=== PATIENT | female | born 1940 | race Caucasian/White ===

== ENCOUNTER 2016-12-24 19:57 | Observation (INO) ==
--- NOTE | 2016-12-24 20:04 | Emergency Department Note ---
Disposition Clinical Impression: Lower gastrointestinal hemorrhage, COPD exacerbation Disposition: Home, Self-Care Condition: Fair Referrals: NO,PCP [Primary Care Provider] - Forms: ED Satisfaction Letter General Adult HPI - General Chief complaint: ED GI Bleed Stated complaint: GI Bleed Time Seen by Provider: 12/24/16 19:59 Source: EMS Limitations: no limitations Nursing Notes Reviewed: Yes Vital Signs Reviewed: Yes - History of Present Illness Pain Scale: 0 - Related Data Home Medications Medication Instructions Recorded Confirmed Gabapentin [Neurontin] 400 mg PO DAILY 04/13/15 01/16/16 Previous Rx's Medication Instructions Recorded Amlodipine [Norvasc] 5 mg PO DAILY 30 Days 04/20/15 Aspirin 81 mg PO DAILY 30 Days 04/20/15 Budesonide/Formoterol 160/4.5 2 puff IH BIDR #1 inhaler 04/20/15 [Symbicort] Carvedilol [Coreg] 3.125 mg PO BIDWM 30 Days 04/20/15 Docusate [Colace] 100 mg PO BID 10 Days 04/20/15 Furosemide [Lasix] 20 mg PO DAILY 14 Days 04/20/15 Insulin Aspart Prot/Insuln Asp 5 unit SQ DAILY 28 Days 04/20/15 [Novolog Mix 70-30 Flexpen Syrn] Insulin Glargine,Hum.rec.anlog 40 unit SQ BID 30 Days 04/20/15 [Lantus Solostar] Ipratropium/Albuterol Neb [Duoneb] 3 ml IH [id number] 14 Days 04/20/15 Levothyroxine [Synthroid] 100 mcg PO 0630 30 Days 04/20/15 MethylPREDNISolone [Medrol] 4 mg PO BIDWM 5 Days 04/20/15 Simvastatin [Zocor] 20 mg PO HS 30 Days 04/20/15 Sitagliptin Phos/Metformin HCl 1 each PO DAILY 30 Days 04/20/15 [Janumet 50-1,000 mg Tablet] Cephalexin [Keflex] 500 mg PO QID #40 capsule 03/16/16 Albuterol Neb [Proventil Neb] 2.5 mg IH Q20MIN #10 vial.neb 07/17/16 Doxycycline 100 mg PO BID #20 capsule 07/17/16 Allergies Allergy/AdvReac Type Severity Reaction Status Date / Time sulfamethoxazole Allergy Rash Verified 07/17/16 17:20 [From Bactrim] trimethoprim [From Bactrim] Allergy Rash Verified 07/17/16 17:20 Sulfa (Sulfonamide AdvReac Rash Verified 07/17/16 17:20 Antibiotics) Past Medical History - Past Medical History Medical history: Reports: arthritis, asthma, cancer, CHF, COPD, diabetes, hypertension, osteoporosis Surgical history: Reports: cancer surgery Psychiatric history: Reports: no psych history - Social History Smoking Status: Former smoker Smokeless Tobacco Status: No Alcohol use: Reports: none Drug use: Reports: none Physical Exam - General Limitations: no limitations General appearance: alert Course Vital Signs Temperature 98.3 F 12/24/16 19:59 Pulse Rate 79 12/24/16 19:59 Respiratory Rate 20 12/24/16 19:59 Blood Pressure 172/80 12/24/16 19:59 O2 Sat by Pulse Oximetry 98 12/24/16 19:59 Temperature 98.3 F 12/24/16 19:59 Pulse Rate 79 12/24/16 19:59 Respiratory Rate 20 12/24/16 19:59 Blood Pressure 172/80 12/24/16 19:59 O2 Sat by Pulse Oximetry 98 12/24/16 19:59 Oxygen Delivery Oxygen Delivery Nasal Cannula Medical Decision Making - MDM Narrative Medical decision making narrative: I examined this patient and my medical decision-making was reviewed with the BRAND MARKETING INTERN/PA/Advanced Practice Nurse/Resident Physician. I agree with the documented findings, disposition and treatment plan as described except to the extent set forth below. Patient arrives by EMS and was seen on arrival by Dr. Corbett and myself, I agree with his evaluation and management plan, supervising care the patient had stay. She comes in today with some lower abdominal cramping and some bright red blood on stool. She has been on laxatives she has been constipated. She looks well is nontoxic in appearance, which can check labs and reassess. She is in agreement with plan. 2130 hrs.: After a grossly bloody bowel movement here, she remained stable. We will bring her into the hospital. - Lab Data Result diagrams: 12/24/16 20:13 12/24/16 20:13 Lab Results 12/24/16 12/24/16 12/24/16 Range/Units 20:13 20:13 20:13 WBC 11.3 H (4.3-11.1) K/mcL RBC 4.34 (3.82-4.97) M/mcL Hgb 10.3 L (11.5-15.4) g/dL Hct 34.6 L (35.3-44.9) % MCV 79.7 L (83.0-100.0) fL MCH 23.7 L (28.0-33.3) pg MCHC 29.8 L (31.6-35.5) g/dL RDW 18.4 H (11.5-14.5) % Plt Count 276 (140-400) K/mcL MPV 8.5 L (9.4-12.4) fL Immature Gran % 0.6 (0-4) % Seg Neutrophils % 81.0 % Lymphocytes % 10.8 % Monocytes % 5.4 % Eosinophils % 1.9 % Basophils % 0.3 % Neutrophils # 9.2 H (1.6-8.9) K/mcL Lymphocytes # 1.2 (0.6-4.6) K/mcL Monocytes # 0.6 (0.0-1.3) K/mcL Eosinophils # 0.2 (0.0-0.6) K/mcL Basophils # 0.0 (0.0-0.2) K/mcL Immature Plt Fraction 2.3 (1.1-6.1) % Sodium 132 L (136-145) mEq/L Potassium 4.5 (3.5-4.5) mEq/L Chloride 83 L (98-109) mEq/L Carbon Dioxide 39 H (19-29) mEq/L BUN 20 (7-20) mg/dL Creatinine 0.99 (0.57-1.11) mg/dL Est GFR ( Amer) > 60 (> 60) Est GFR (Non-Af Amer) 54 L (> 60) BUN/Creatinine Ratio 20 (6-26) Glucose 289 H (70-99) mg/dL Calculated Osmolality 287 (280-300) Calcium 8.8 (8.6-10.8) mg/dL Total Bilirubin 0.3 (0.2-1.2) mg/dL AST 8 (5-34) Units/L ALT 6 (0-55) Units/L Alkaline Phosphatase 96 (38-126) Units/L Troponin I 0.00 (0-0.03) ng/mL Serum Total Protein 6.9 (6.0-8.3) g/dL Albumin 3.0 L (3.5-5.0) g/dL Globulin 3.9 H (2.4-3.5) g/dL Albumin/Globulin Ratio 0.8 L (1.1-2.2)
[2016-12-24] MEDS: 0.9 % Sodium Chloride 1,000 ML IVC SCH (20:06)
--- NOTE | 2016-12-24 20:09 | Emergency Department Note ---
Disposition Clinical Impression: Lower gastrointestinal hemorrhage, COPD exacerbation Disposition: Admitted As Inpatient Condition: Fair Referrals: NO,PCP [Primary Care Provider] - Forms: ED Satisfaction Letter Time of Disposition: 22:43 GI Bleed HPI - General Chief complaint: ED GI Bleed Stated complaint: GI Bleed Time Seen by Provider: 12/24/16 19:59 Source: patient, family, EMS Mode of arrival: EMS Limitations: no limitations Nursing Notes Reviewed: Yes Vital Signs Reviewed: Yes - History of Present Illness HPI Narrative: Patient is a 76-year-old female with past medical history of COPD, CHF, diabetes , hypertension, arthritis. She chronically wears 2-3 L nasal cannula oxygen at home during the day. She presents today via EMS due to possible GI bleed. Patient has had recent constipation and has been taking [id number] Ex- Lax. Patient said that this morning, she is having some abdominal cramping and had 2-3 bowel movements with blood mixed in with soft stool. She also had some blood on toilet paper when she was wiping. Currently, she denies any abdominal pain, lightheadedness, dizziness, chest pain, fevers, diarrhea. She does admit to some shortness breath that is worsened from her baseline with COPD. However , she rates it as mild. - Related Data Home Medications Medication Instructions Recorded Confirmed Gabapentin [Neurontin] 400 mg PO DAILY 04/13/15 12/24/16 Albuterol Neb [Proventil Neb] 2.5 mg IH TID 12/24/16 12/24/16 Albuterol Sulfate [Proair Hfa] 2 puff IH Q4H PRN 12/24/16 12/24/16 Alendronate Sodium [Fosamax] 70 mg PO TU 12/24/16 12/24/16 Atorvastatin Calcium [Lipitor] 20 mg PO DAILY 12/24/16 12/24/16 Benzonatate 100 mg PO TID PRN 12/24/16 12/24/16 Cholecalciferol (Vitamin D3) 400 unit PO DAILY 12/24/16 12/24/16 [Vitamin D] Diclofenac Sodium [Voltaren] 1 appl TP QID PRN 12/24/16 12/24/16 GlipiZIDE XL (24 HR) [Glucotrol XL] 10 mg PO 0800 12/24/16 12/24/16 Insulin Aspart Prot/Insuln Asp 6 unit SQ DAILY 12/24/16 12/24/16 [Novolog Mix 70-30 Flexpen Syrn] Losartan [Cozaar] 25 mg PO DAILY 12/24/16 12/24/16 Montelukast [Singulair] 10 mg PO DAILY 12/24/16 12/24/16 Nystatin/Triamcinolone CRM 1 appl TP BID 12/24/16 12/24/16 [Mycolog] Oxygen 2 - 3 l NS CONT 12/24/16 12/24/16 Ranitidine HCl [Heartburn Relief] 150 mg PO BID 12/24/16 12/24/16 Tizanidine HCl 4 mg PO TID PRN 12/24/16 12/24/16 Tramadol HCl [Ultram] 50 mg PO BID PRN 12/24/16 12/24/16 Previous Rx's Medication Instructions Recorded Amlodipine [Norvasc] 5 mg PO DAILY 30 Days 04/20/15 Aspirin 81 mg PO DAILY 30 Days 04/20/15 Budesonide/Formoterol 160/4.5 2 puff IH BIDR #1 inhaler 04/20/15 [Symbicort] Carvedilol [Coreg] 3.125 mg PO BIDWM 30 Days 04/20/15 Docusate [Colace] 100 mg PO BID 10 Days 04/20/15 Furosemide [Lasix] 20 mg PO DAILY 14 Days 04/20/15 Insulin Glargine,Hum.rec.anlog 40 unit SQ BID 30 Days 04/20/15 [Lantus Solostar] Ipratropium/Albuterol Neb [Duoneb] 3 ml IH [id number] 14 Days 04/20/15 Levothyroxine [Synthroid] 100 mcg PO 0630 30 Days 04/20/15 Sitagliptin Phos/Metformin HCl 1 each PO DAILY 30 Days 04/20/15 [Janumet 50-1,000 mg Tablet] Allergies Allergy/AdvReac Type Severity Reaction Status Date / Time sulfamethoxazole Allergy Rash Verified 07/17/16 17:20 [From Bactrim] trimethoprim [From Bactrim] Allergy Rash Verified 07/17/16 17:20 Sulfa (Sulfonamide AdvReac Rash Verified 07/17/16 17:20 Antibiotics) All systems ED: reviewed and negative except as stated. Constitutional: Denies: fever Cardiovascular: Denies: chest pain, palpitations Respiratory: Reports: dyspnea. Denies: cough, wheezes Gastrointestinal: Reports: hematochezia. Denies: abdominal pain, nausea, vomiting, diarrhea Genitourinary: Denies: urgency, dysuria Neurological: Denies: headache, weakness, numbness, paresthesias Past Medical History - Past Medical History Attestation: Yes The following information was validated with the patient. Source: patient Medical history: Reports: arthritis, asthma, cancer, CHF, COPD, diabetes, hypertension, osteoporosis Surgical history: Reports: cancer surgery Psychiatric history: Reports: no psych history - Social History Smoking Status: Former smoker Smokeless Tobacco Status: No Alcohol use: Reports: none Drug use: Reports: none Physical Exam - General Limitations: no limitations General appearance: alert, other (Morbidly obese) - Head Head exam: atraumatic, normocephalic, normal inspection - Eye Eye exam: Present: normal appearance, PERRL, EOMI - ENT ENT exam: normal exam, normal oropharynx, mucous membranes moist - Neck Neck exam: Present: normal inspection, full ROM, trachea midline - Chest Chest inspection: Present: normal inspection, symmetric chest wall rise - Respiratory Respiratory exam: Present: wheezes (Mild wheeze throughout) - Cardiovascular Cardiovascular exam: Present: regular rate, normal rhythm, normal heart sounds - Abdominal Exam Abdominal exam: Present: soft, Non-Tender, other (Obese). Absent: tenderness, distention, guarding, rebound, rigidity - Extremities Exam Extremities exam: Present: normal inspection, full ROM. Absent: tenderness, pedal edema - Neurological Exam Neurological exam: Present: alert, oriented X3 - Psychiatric Psychiatric exam: Present: normal affect, normal mood - Skin Skin exam: Present: warm, dry, intact, normal color Course Course Narrative: Blood pressure 170/80. Pulse within normal limits. Patient is in no acute distress. Abdominal exam shows no tenderness to palpation, soft, no rigidity or guarding. Heart regular rate and rhythm, lungs show mild wheezes throughout. We will obtain basic blood work to assess hemoglobin. We will also obtain troponin due to complaints of mild increase in shortness of breath. We will perform a rectal exam for occult blood. This is likely due to hemorrhoids from recent constipation. The patient herself said that she was not worried about the amount of blood that was in her stool but that her family members made her come in. 21:45 Hgb 10.3, down from 11.7 from June 2016. Trop negative. No major concerns with BMP. Patient had a grossly bloody liquid stool approximately 300ml while waiting. Due to continued bowel movements, I discussed admission with the patient for observation and possible colonoscopy during her stay. She was agreeable with staying. Type and screen was ordered in case patient has continued blood loss. Blood pressure stable this time. Patient continues to only have mild shortness of breath near baseline, no other symptoms at this time. Vital Signs Temperature 98.3 F 12/24/16 19:59 Pulse Rate 79 12/24/16 19:59 Respiratory Rate 20 12/24/16 19:59 Blood Pressure 172/80 12/24/16 19:59 O2 Sat by Pulse Oximetry 98 12/24/16 19:59 Temperature 98.3 F 12/24/16 19:59 Pulse Rate 72 12/24/16 22:32 Respiratory Rate 20 12/24/16 22:32 Blood Pressure 148/61 12/24/16 22:32 O2 Sat by Pulse Oximetry 96 12/24/16 22:32 Oxygen Delivery Oxygen Delivery Nasal Cannula GI Bleed - [facility] Narrative Medical decision making narrative: I examined this patient and my medical decision-making was reviewed with the SCHOOL TRANSPORTATION DIRECTOR/PA/Advanced Practice Nurse/Resident Physician. I agree with the documented findings, disposition and treatment plan as described except to the extent set forth below. Patient was seen and evaluated on arrival by myself and Dr. parker, I agree with his evaluation and management plan, supervise care the patient's stay. Patient had some crampy lower abdominal pain on initial arrival. She notes some blood in her stool also. We checked labs which show she is A little bit of anemia but only had a decline in her hemoglobin less than 1.. Here she has had a grossly bloody bowel movement. 1. She has remained stable. Bring her into the hospital for GI bleed management. She is in agreement with this plan. Blood pressure 170/80. Pulse within normal limits. Patient is in no acute distress. Abdominal exam shows no tenderness to palpation, soft, no rigidity or guarding. Heart regular rate and rhythm, lungs show mild wheezes throughout. We will obtain basic blood work to assess hemoglobin. We will also obtain troponin due to complaints of mild increase in shortness of breath. We will perform a rectal exam for occult blood. This is likely due to hemorrhoids from recent constipation. The patient herself said that she was not worried about the amount of blood that was in her stool but that her family members made her come in. 21:45 Hgb 10.3, down from 11.7 from June 2016. Trop negative. No major concerns with BMP. Patient had a grossly bloody liquid stool approximately 300ml while waiting. Due to continued bowel movements, I discussed admission with the patient for observation and possible colonoscopy during her stay. She was agreeable with staying. Type and screen was ordered in case patient has continued blood loss. Blood pressure stable this time. Patient continues to only have mild shortness of breath near baseline, no other symptoms at this time. - Medical Records Medical records reviewed: Yes I reviewed the patient's medical records. - Lab Data Lab results reviewed: Yes I reviewed the patient's lab results. Result diagrams: 12/24/16 20:13 12/24/16 20:13 Lab Results 12/24/16 12/24/16 12/24/16 Range/Units 20:13 20:13 20:13 WBC 11.3 H (4.3-11.1) K/mcL RBC 4.34 (3.82-4.97) M/mcL Hgb 10.3 L (11.5-15.4) g/dL Hct 34.6 L (35.3-44.9) % MCV 79.7 L (83.0-100.0) fL MCH 23.7 L (28.0-33.3) pg MCHC 29.8 L (31.6-35.5) g/dL RDW 18.4 H (11.5-14.5) % Plt Count 276 (140-400) K/mcL MPV 8.5 L (9.4-12.4) fL Immature Gran % 0.6 (0-4) % Seg Neutrophils % 81.0 % Lymphocytes % 10.8 % Monocytes % 5.4 % Eosinophils % 1.9 % Basophils % 0.3 % Neutrophils # 9.2 H (1.6-8.9) K/mcL Lymphocytes # 1.2 (0.6-4.6) K/mcL Monocytes # 0.6 (0.0-1.3) K/mcL Eosinophils # 0.2 (0.0-0.6) K/mcL Basophils # 0.0 (0.0-0.2) K/mcL Immature Plt Fraction 2.3 (1.1-6.1) % Sodium 132 L (136-145) mEq/L Potassium 4.5 (3.5-4.5) mEq/L Chloride 83 L (98-109) mEq/L Carbon Dioxide 39 H (19-29) mEq/L BUN 20 (7-20) mg/dL Creatinine 0.99 (0.57-1.11) mg/dL Est GFR ( Amer) > 60 (> 60) Est GFR (Non-Af Amer) 54 L (> 60) BUN/Creatinine Ratio 20 (6-26) Glucose 289 H (70-99) mg/dL Calculated Osmolality 287 (280-300) Calcium 8.8 (8.6-10.8) mg/dL Total Bilirubin 0.3 (0.2-1.2) mg/dL AST 8 (5-34) Units/L ALT 6 (0-55) Units/L Alkaline Phosphatase 96 (38-126) Units/L Troponin I 0.00 (0-0.03) ng/mL Serum Total Protein 6.9 (6.0-8.3) g/dL Albumin 3.0 L (3.5-5.0) g/dL Globulin 3.9 H (2.4-3.5) g/dL Albumin/Globulin Ratio 0.8 L (1.1-2.2) Blood Type Antibody Screen 12/24/16 Range/Units 20:13 WBC (4.3-11.1) K/mcL RBC (3.82-4.97) M/mcL Hgb (11.5-15.4) g/dL Hct (35.3-44.9) % MCV (83.0-100.0) fL MCH (28.0-33.3) pg MCHC (31.6-35.5) g/dL RDW (11.5-14.5) % Plt Count (140-400) K/mcL MPV (9.4-12.4) fL Immature Gran % (0-4) % Seg Neutrophils % % Lymphocytes % % Monocytes % % Eosinophils % % Basophils % % Neutrophils # (1.6-8.9) K/mcL Lymphocytes # (0.6-4.6) K/mcL Monocytes # (0.0-1.3) K/mcL Eosinophils # (0.0-0.6) K/mcL Basophils # (0.0-0.2) K/mcL Immature Plt Fraction (1.1-6.1) % Sodium (136-145) mEq/L Potassium (3.5-4.5) mEq/L Chloride (98-109) mEq/L Carbon Dioxide (19-29) mEq/L BUN (7-20) mg/dL Creatinine (0.57-1.11) mg/dL Est GFR ( Amer) (> 60) Est GFR (Non-Af Amer) (> 60) BUN/Creatinine Ratio (6-26) Glucose (70-99) mg/dL Calculated Osmolality (280-300) Calcium (8.6-10.8) mg/dL Total Bilirubin (0.2-1.2) mg/dL AST (5-34) Units/L ALT (0-55) Units/L Alkaline Phosphatase (38-126) Units/L Troponin I (0-0.03) ng/mL Serum Total Protein (6.0-8.3) g/dL Albumin (3.5-5.0) g/dL Globulin (2.4-3.5) g/dL Albumin/Globulin Ratio (1.1-2.2) Blood Type O POSITIVE Antibody Screen NEGATIVE - EKG Data EKG attestation: Yes I reviewed and interpreted this EKG. EKG results narrative: 12/24/2016 at 20:24. Normal sinus rhythm. Rate 74. UT 198. QRS 105. QTc 423. Left axis deviation. Q waves in V1, V2 that are present on old EKG. Otherwise no acute ST elevation or depression. All EKG on 07/17/2016 S.Bahman - EbAJosefina Situation: Demographics, MOA Background: Presenting Complaint, Relevant PMH, Meds, & Allergies Assessment: Vital Signs, Course and respsone to treatment, Exam Concerns, Patient/Family Expectation, Pertinant Lab Results, Outstanding Labs Recommendation: Barrier(s) to disposition, Recommendation based on pending studies, treatments, or consults S.B.Quintin Report Given to: Dr. Leon Marie.R. Repor Time: 22:43
[2016-12-24 20:21] LABS: Basophils % 0.3 %; Eosinophils # 0.2 K/mcL (0.0-0.6); Eosinophils % 1.9 %; Hematocrit 34.6 % (35.3-44.9); Hemoglobin 10.3 g/dL (11.5-15.4); Immature Granulocytes % 0.6 % (0-4); Immature Platelets 2.3 % (1.1-6.1); Lymphocytes # 1.2 K/mcL (0.6-4.6); Lymphocytes % 10.8 %; Mean Corpuscular HGB Conc 29.8 g/dL (31.6-35.5); Mean Corpuscular Hemoglobin 23.7 pg (28.0-33.3); Mean Corpuscular Volume 79.7 fL (83.0-100.0); Mean Platelet Volume 8.5 fL (9.4-12.4); Monocytes # 0.6 K/mcL (0.0-1.3); Monocytes % 5.4 %; Neutrophils # 9.2 K/mcL (1.6-8.9); Platelet Count 276 K/mcL (140-400); Red Blood Count 4.34 M/mcL (3.82-4.97); Red Cell Distribution Width 18.4 % (11.5-14.5)
[2016-12-24 20:34] LABS: Alanine Aminotransferase 6 Units/L (0-55); Albumin/Globulin Ratio 0.8 (1.1-2.2); Alkaline Phosphatase 96 Units/L (38-126); Aspartate Amino Transferase 8 Units/L (5-34); BUN/Creatinine Ratio 20 (6-26); Bilirubin,Total 0.3 mg/dL (0.2-1.2); Blood Urea Nitrogen 20 mg/dL (7-20); Calcium 8.8 mg/dL (8.6-10.8); Carbon Dioxide 39 mEq/L (19-29); Chloride 83 mEq/L (98-109); Globulin 3.9 g/dL (2.4-3.5); Glucose 289 mg/dL (70-99); Osmolality,Calculated 287 (280-300); Potassium 4.5 mEq/L (3.5-4.5); Sodium 132 mEq/L (136-145); Total Protein 6.9 g/dL (6.0-8.3); eGFR For African Americans > 60 (> 60); eGFR For Non-African Americans 54 (> 60)
[2016-12-24] MEDS ORDERED: Ondansetron 4 MG/2 ML VIAL IVP PRN (23:28)
[2016-12-24] MEDS ORDERED: Acetaminophen 325 MG TABLET PO PRN (23:28)
[2016-12-24] MEDS ORDERED: Naloxone 0.4 MG/ML INJ IVP PRN (23:28)
[2016-12-24] MEDS ORDERED: traMADol 50 MG TABLET PO PRN (23:32)
[2016-12-24] MEDS ORDERED: *HR* Dextrose 50 % in Water (Syg) 50 ML SYRINGE IVP PRN (23:36)
[2016-12-24] MEDS ORDERED: Dextrose Gel 15 GM PO PRN ×2 (23:36)
[2016-12-24] MEDS ORDERED: D5% in Water 1,000 ML IVC PRN (23:36)
[2016-12-24] MEDS ORDERED: Ipratropium/Albuterol Neb 3 ML IH PRN (23:37)
--- NOTE | 2016-12-24 23:39 | Internal Med History&Physical ---
Date of Encounter: 12/24/16 Time of Encounter: 23:00 Assessment and Plan (1) Lower gastrointestinal hemorrhage Current visit: Yes Status: Acute Patient has small amount of rectal bleeding. However, she has history of colon cancer. Admitted as lower GI bleeding. - We will keep patient nothing by mouth, IV fluid. - IV PPI. - Closely monitor vitals and hemoglobin change. - GI consult for possible colonoscopy. (2) Morbid obesity Current visit: No Status: Acute Need lifestyle modification Qualifiers: Obesity type: due to excess calories Qualified Code(s): E66.01 - Morbid ( severe) obesity due to excess calories (3) Diabetes mellitus Current visit: No Status: Chronic Patient is on basal and sliding scale insulin. Check glucose every 6 hours. 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 Complaining of increased chest congestion. Consider mild COPD exacerbation. - We will continue home inhaled steroid, Singulair. - Bronchodilator - Prednisone 40 mg by mouth daily added. - Continue oxygen therapy. (5) Hypothyroid Current visit: No Status: Chronic Continue home Synthroid. Qualifiers: Hypothyroidism type: unspecified Qualified Code(s): E03.9 - Hypothyroidism , unspecified (6) Hypertension Current visit: No Status: Chronic Blood pressure is stable. continue home medication. Qualifiers: Hypertension type: essential hypertension Qualified Code(s): I10 - Essential (primary) hypertension (7) DVT prophylaxis Current visit: Yes Status: Acute Put patient on EPCD. No anticoagulations because of bleeding. Internal Medicine - H&P: HPI Chief complaint: Rectal bleeding Admitted From: Home Plans for Post Hospital Care: Home History of present illness: Ms. Ponce is a 76 year old female admitted for rectal bleeding. Patient said she found blood in toilet paper and blood mixed with stool since this morning. Patient denies diarrhea, she has some constipation recently and used over-the- counter stool softeners. She has no nausea no vomiting. She denies lightheaded , dizziness. No chest pain or shortness of breath. Patient had a history of colon cancer S/P surgery in 2007. She had last colonoscopy on 2012. Patient was admitted for further management. Patient has a history of COPD and complaint of more congestion recently. She has a mild wheezes when I saw her in the emergency room. Past Med Surg Social Fam HX - Past Medical History Medical history: arthritis, asthma, cancer, CHF, COPD, diabetes, hypertension, osteoporosis Psychiatric history: no psych history - Past Surgical History Surgical History: cancer surgery - Social History Smoking Status: Former smoker Smokeless Tobacco Status: No Alcohol use: none Drug use: none Internal Medicine - H&P: Meds Gabapentin [Neurontin] 400 mg PO DAILY 04/13/15 [History] Amlodipine [Norvasc] 5 mg PO DAILY 30 Days 04/20/15 [Rx] Aspirin 81 mg PO DAILY 30 Days 04/20/15 [Rx] Budesonide/Formoterol 160/4.5 [Symbicort] 2 puff IH BIDR #1 inhaler 04/20/15 [Rx ] Carvedilol [Coreg] 3.125 mg PO BIDWM 30 Days 04/20/15 [Rx] Docusate [Colace] 100 mg PO BID 10 Days 04/20/15 [Rx] Furosemide [Lasix] 20 mg PO DAILY 14 Days 04/20/15 [Rx] Insulin Glargine,Hum.rec.anlog [Lantus Solostar] 40 unit SQ BID 30 Days [Rx] Ipratropium/Albuterol Neb [Duoneb] 3 ml IH [id number] 14 Days 04/20/15 [Rx] Levothyroxine [Synthroid] 100 mcg PO 0630 30 Days 04/20/15 [Rx] Sitagliptin Phos/Metformin HCl [Janumet 50-1,000 mg Tablet] 1 each PO DAILY 30 Days 04/20/15 [Rx] Albuterol Neb [Proventil Neb] 2.5 mg IH TID 12/24/16 [History] Albuterol Sulfate [Proair Hfa] 2 puff IH Q4H PRN 12/24/16 [History] Alendronate Sodium [Fosamax] 70 mg PO TU 12/24/16 [History] Atorvastatin Calcium [Lipitor] 20 mg PO DAILY 12/24/16 [History] Benzonatate 100 mg PO TID PRN 12/24/16 [History] Cholecalciferol (Vitamin D3) [Vitamin D] 400 unit PO DAILY 12/24/16 [History] Diclofenac Sodium [Voltaren] 1 appl TP QID PRN 12/24/16 [History] GlipiZIDE XL (24 HR) [Glucotrol XL] 10 mg PO 0800 12/24/16 [History] Insulin Aspart Prot/Insuln Asp [Novolog Mix 70-30 Flexpen Syrn] 6 unit SQ DAILY 12/24/16 [History] Losartan [Cozaar] 25 mg PO DAILY 12/24/16 [History] Montelukast [Singulair] 10 mg PO DAILY 12/24/16 [History] Nystatin/Triamcinolone CRM [Mycolog] 1 appl TP BID 12/24/16 [History] Oxygen 2 - 3 l NS CONT 12/24/16 [History] Ranitidine HCl [Heartburn Relief] 150 mg PO BID 12/24/16 [History] Tizanidine HCl 4 mg PO TID PRN 12/24/16 [History] Tramadol HCl [Ultram] 50 mg PO BID PRN 12/24/16 [History] Allergies sulfamethoxazole [From Bactrim] Allergy (Verified 07/17/16 17:20) Rash trimethoprim [From Bactrim] Allergy (Verified 07/17/16 17:20) Rash Sulfa (Sulfonamide Antibiotics) Adverse Reaction (Verified 07/17/16 17:20) Rash All Systems PM: A 10-system review of systems was performed and is negative for pertinent findings except as documented above in the HPI. - Constitutional Vitals: Temp Pulse Resp BP Pulse Ox 98.3 F 76 20 135/65 94 12/24/16 19:59 12/24/16 23:22 12/24/16 23:31 12/24/16 23:31 12/24/16 23:22 General appearance: Present: mild distress, A&O X 3, morbidly obese, answers questions appropriately - Head Head exam: Present: atraumatic, normocephalic - Eye Eye exam: Present: PERRL, conjuntiva pink, sclera anicteric Pupils: Present: PERRL - Neck Neck exam general surgery: Present: supple, trachea midline. Absent: lymphadenopathy - Respiratory Respiratory exam: Present: CTAB, wheezes (Few wheezes on right side). Absent: accessory muscle use, rales, rhonchi - Cardiovascular Cardiovascular exam: Present: RRR, +S1, +S2. Absent: diastolic murmur, gallop, rubs, systolic murmur - GI/Abdominal GI/Abdominal exam: Present: normal bowel sounds, soft, no peritoneal signs. Absent: distended, tenderness - Extremities Exam Extremities exam: Present: warm, radial pulses palpable and symetrical. Absent : calf tenderness, cyanotic, pedal edema - Neurological Exam Neurological exam: Present: CN II-XII intact, oriented X3, no focal deficits. Absent: pronater drift, facial droop, speech deficit - Skin Skin exam: Present: dry, intact Internal Med - H&P Results - Labs CBC & Chem 7: 12/24/16 20:13 12/24/16 20:13
[2016-12-25] MEDS: Ipratropium/Albuterol Neb 3 ML IH SCH ×6 (00:07→20:18)
[2016-12-25] MEDS: Insulin LISPRO 300 UNITS/3 ML VIAL SQ SCH ×4 (01:07→17:10)
[2016-12-25] MEDS: predniSONE 20 MG TABLET PO SCH ×2 (01:07→08:04)
[2016-12-25 02:45] LABS: Bilirubin,Urine Negative (Negative); Blood,Urine Trace (Negative); Clarity,Urine Clear (Clear); Color,Urine Yellow (Yellow); Glucose,Urine (UA) Normal (Normal); Ketones,Urine Negative (Negative); Leukocyte Esterase,Urine Small (Negative); Nitrite,Urine Negative (Negative); Protein,Urine Trace mg/dL (Neg-Trace); Specific Gravity,Urine 1.009 (1.010-1.025); Urobilinogen,Urine Normal (Normal)
[2016-12-25] MEDS: *HR* OxyCODONE/APAP 5/325 TABLET PO PRN ×3 (02:46→16:53)
[2016-12-25 02:50] LABS: Bacteria,Urine None Seen per hpf (None-Few); Hyaline Casts,Urine None Seen per lpf (None-Few); RBC,Urine 0-3 per hpf (0-3); Squamous Epithelial Cell,Urine Many per lpf (None-Few)
[2016-12-25] MEDS: Famotidine 20 MG TABLET PO SCH ×2 (06:15→15:07)
[2016-12-25] MEDS: Pantoprazole 40 MG VIAL IVP SCH ×2 (06:15→16:53)
[2016-12-25] MEDS: 0.9 % Sodium Chloride 1,000 ML IVC SCH (06:15)
[2016-12-25 06:23] LABS: Hematocrit 32.3 % (35.3-44.9); Red Blood Count 3.99 M/mcL (3.82-4.97)
[2016-12-25 06:24] LABS: Basophils % 0.2 %; Eosinophils # 0.1 K/mcL (0.0-0.6); Eosinophils % 0.5 %; Hemoglobin 9.6 g/dL (11.5-15.4); Immature Granulocytes % 0.6 % (0-4); Immature Platelets 2.4 % (1.1-6.1); Lymphocytes # 0.9 K/mcL (0.6-4.6); Lymphocytes % 6.3 %; Mean Corpuscular HGB Conc 29.7 g/dL (31.6-35.5); Mean Corpuscular Hemoglobin 24.1 pg (28.0-33.3); Mean Platelet Volume 8.9 fL (9.4-12.4); Monocytes # 0.3 K/mcL (0.0-1.3); Monocytes % 1.8 %; Neutrophils # 12.8 K/mcL (1.6-8.9); Platelet Count 244 K/mcL (140-400); Red Cell Distribution Width 18.2 % (11.5-14.5); Segmented Neutrophils % 90.6 %
[2016-12-25 06:54] LABS: BUN/Creatinine Ratio 27 (6-26); Blood Urea Nitrogen 21 mg/dL (7-20); Calcium 8.7 mg/dL (8.6-10.8); Carbon Dioxide 35 mEq/L (19-29); Chloride 89 mEq/L (98-109); Glucose 128 mg/dL (70-99); Osmolality,Calculated 281 (280-300); Potassium 4.9 mEq/L (3.5-4.5); Sodium 133 mEq/L (136-145); eGFR For African Americans > 60 (> 60); eGFR For Non-African Americans > 60 (> 60)
[2016-12-25] MEDS: Budesonide/Formoterol 160/4.5 MDI IH SCH ×2 (07:50→20:18)
[2016-12-25] MEDS: Furosemide 20 MG TABLET PO SCH (08:04)
[2016-12-25] MEDS: amLODIPine 5 MG TABLET PO SCH (08:05)
--- NOTE | 2016-12-25 10:36 | Electrocardiograph Report ---
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
--- NOTE | 2016-12-25 12:17 | Gastroenterology Consult Note ---
<Richard Gold - Last Filed: 12/25/16 12:14> Date of Encounter: 12/25/16 Time of Encounter: 11:10 - Assessment and plan (1) History of colon cancer Current Visit: Yes Status: Acute Assessment and plan: s/p surgery in 2007. (2) Lower gastrointestinal hemorrhage Current Visit: Yes Status: Acute Assessment and plan: Pt with BRBPR noted in bowl and with wiping. Plan for colonoscopy tomorrow. Clear liquid diet today, no red or purple. NPO at midnight. If unable tolerate NuLytely please use MiraLAX prep. If not clear by 6 AM, give 2 tap water enemas. (3) Morbid obesity Current Visit: No Status: Acute Qualifiers: Obesity type: due to excess calories Qualified Code(s): E66.01 - Morbid ( severe) obesity due to excess calories - Time Spent With Patient Total time spent is greater than 50% in coordination of care (as documented) at patient's floor/unit and/or counseling patient: GI History of Present Illness - Data of Consult Patient: new to practice Consult date: 12/25/16 Requesting Physician: Scarlet Zhu - Consult Narrative Reason for consult: Rectal bleeding, hx colon cancer History of present illness: Ms. Ponce is a 76 year old female with PMHx of arthritis, asthma, colon cancer (s/p surgery 2007), COPD, DM, HTN who was admitted with rectal bleeding. Patient has had recent constipation and has been taking [id number] Ex- Lax. Yesterday, she started having abdominal cramping and had 2-3 BMs with blood mixed with stool and BRBPR with wiping. She denies fever, chills, chest pain, abdominal pain, nausea, vomiting, diarrhea. Procedures: Colonoscopy 02/11/2013 Dr. Almonte: Diverticulosis NSAIDs: Diclofenac, ASA Anticoagulation: None Past Med Surg Social Fam HX - Past Medical History Medical history: arthritis, asthma, cancer, CHF, COPD, diabetes, hypertension, osteoporosis Psychiatric history: no psych history - Past Surgical History Surgical History: cancer surgery - Social History Smoking Status: Former smoker Smokeless Tobacco Status: No Alcohol use: none Drug use: none - Family History Mother Living Status: Age at : 54 Cause of : Unknown Hx Family Cardiac Disorders: Yes Hx Family Endocrine Disorder: Yes (DM) Hx Family Musculoskeletal Disorders: Yes (RA) Father Living Status: Age at : 84 Cause of : DM Hx Family Cardiac Disorders: Yes (HTN) Hx Family Endocrine Disorder: Yes (DM) - Gastrointestinal Gastrointestinal: Present: as per HPI - Constitutional Constitutional: as per HPI - EENT Eyes: as per HPI Ears: Present: as per HPI Nose, mouth and throat: Present: as per HPI - Cardiovascular Cardiovascular ROS: Present: as per HPI - Respiratory Respiratory IM: Present: as per HPI - Genitourinary Genitourinary: Absent: change in color, Urinary frequency - Neurological ROS Neurological GI: Present: as per HPI - Hematologic/Lymphatic Hematologic/Lymphatic pediatric: Present: as per HPI - Musculoskeletal Musculoskeletal ROS GI: Present: as per HPI - Integumentary Integumentary GI: Present: as per HPI - Psychiatric ROS Psychiatric GI: Present: as per HPI - Endocrine Endocrine IM: Present: as per HPI - Constitutional Vitals: Temp Pulse Resp BP Pulse Ox 98.0 F 76 16 120/69 92 12/25/16 11:05 12/25/16 11:05 12/25/16 11:05 12/25/16 11:05 12/25/16 11:05 General appearance: Present: cooperative, A&O X 3, no acute distress, answers questions appropriately - Head Head exam: Present: atraumatic, normocephalic - Eye Eye exam: Present: normal appearance, sclera anicteric - ENT ENT exam: Present: mucous membranes moist - Neck Neck exam general surgery: Present: normal inspection, trachea midline - Respiratory Respiratory exam: Present: decreased breath sounds, CTAB. Absent: rales, rhonchi - Cardiovascular Cardiovascular exam: Present: RRR, +S1, +S2 - GI/Abdominal GI/Abdominal exam: Present: soft, no peritoneal signs. Absent: distended, firm , guarding, tenderness Additional comments: Morbidly obese - Rectal Rectal exam: Present: deferred - Extremities Exam Extremities exam: Present: warm - Neurological Exam Neurological exam: Present: no focal deficits - Psychiatric Psychiatric exam: Present: normal affect, normal mood - Skin Skin exam: Present: dry, intact, normal color, warm Results - Labs CBC & Chem 7: 12/25/16 04:49 12/25/16 04:51 Labs: Last Result Calcium 8.7 mg/dL (8.6-10.8) 12/25/16 04:51 Troponin I 0.00 ng/mL (0-0.03) 12/24/16 20:13 Entire Visit Hgb 9.6 g/dL (11.5-15.4) L 12/25/16 04:49 Hct 32.3 % (35.3-44.9) L 12/25/16 04:49 Total Bilirubin 0.3 mg/dL (0.2-1.2) 12/24/16 20:13 AST 8 Units/L (5-34) 12/24/16 20:13 ALT 6 Units/L (0-55) 12/24/16 20:13 Consult Discharge Plan - Plan Referrals: Aidan Hendrickson MD [Primary Care Provider] - <Inessa Byrne - Last Filed: 12/25/16 18:35> Date of Encounter: 12/25/16 Time of Encounter: 17:25 - Time Spent With Patient Total time spent is greater than 50% in coordination of care (as documented) at patient's floor/unit and/or counseling patient: GI History of Present Illness - Data of Consult Requesting Physician: Scarlet Zhu - Consult Narrative History of present illness: Ms. Ponce is a 76 year old female - Constitutional Vitals: Temp Pulse Resp BP Pulse Ox 98.0 F 77 18 110/69 92 12/25/16 15:14 12/25/16 15:14 12/25/16 16:26 12/25/16 15:14 12/25/16 16:26 Results - Labs CBC & Chem 7: 12/25/16 04:49 12/25/16 04:51 Labs: Last Result Calcium 8.7 mg/dL (8.6-10.8) 12/25/16 04:51 Troponin I 0.00 ng/mL (0-0.03) 12/24/16 20:13 Entire Visit Hgb 9.6 g/dL (11.5-15.4) L 12/25/16 04:49 Hct 32.3 % (35.3-44.9) L 12/25/16 04:49 Total Bilirubin 0.3 mg/dL (0.2-1.2) 12/24/16 20:13 AST 8 Units/L (5-34) 12/24/16 20:13 ALT 6 Units/L (0-55) 12/24/16 20:13 - Attending Attestation I examined this patient and my medical decision-making was reviewed with the SUBSURFACE AUGMENTEE OPERATOR/PA/Advanced Practice Nurse/Resident Physician. I agree with the documented findings, disposition and treatment plan as described except to the extent set forth below.
--- NOTE | 2016-12-25 14:01 | Internal Med Progress Note ---
Date of Encounter: 12/25/16 Time of Encounter: 10:30 - Assessment and plan (1) Lower gastrointestinal hemorrhage Current Visit: Yes Status: Acute Assessment and plan: Patient stating she has had a bowel movement since admission that she did not notice any blood in the stool or on the toilet paper. She has remained hemodynamically stable and has not required a transfusion to this point. Seen and evaluated by GI, plan is for bowel prep tonight and colonoscopy tomorrow. Patient currently denies abdominal pain. (2) COPD exacerbation Current Visit: Yes Status: Acute Assessment and plan: Patient denies shortness of breath above her normal however she has coarse wheezing present on examination. She also has audible wheezing. No stridor or drooling. We will continue to treat for mild exacerbation. (3) Diabetes mellitus Current Visit: No Status: Chronic Assessment and plan: Uncontrolled with an A1c in September of 9.4%. Continue sliding scale while admitted. Qualifiers: Diabetes mellitus type: type 2 Diabetes mellitus complication status: without complication Diabetes mellitus group home insulin use: with terminal supervisor use Qualified Code(s): E11.9 - Type 2 diabetes mellitus without complications ; Z79.4 - bed bug exterminator (current) use of insulin (4) Acute kidney injury Current Visit: No Status: Resolved (5) Hypothyroid Current Visit: No Status: Chronic Assessment and plan: TSH checked in June 2016 normal Qualifiers: Hypothyroidism type: unspecified Qualified Code(s): E03.9 - Hypothyroidism , unspecified (6) Diastolic CHF Current Visit: No Status: Acute Assessment and plan: Acute on chronic diastolic heart failure. She denies shortness of breath or swelling above her norm. On examination, she has coarse wheezing throughout and 3+ pitting edema noted bilaterally but she states this is normal for her. Will hold IV fluids and monitor. (7) Acute and chronic respiratory failure ([id number]) Current Visit: No Status: Chronic Assessment and plan: Patient was super morbid obesity with BMI nearly 56 as well as obesity hypoventilation syndrome as well as history of smoking and COPD. She currently denies shortness of breath above her normal however she is wheezing and has mild respiratory distress on examination. We will monitor fluid levels closely and treat for mild COPD exacerbation. (8) Obesity hypoventilation syndrome Current Visit: No Status: Chronic (9) Hypertension Current Visit: No Status: Chronic Assessment and plan: Controlled. We will continue to trend and adjust medications as indicated. Qualifiers: Hypertension type: essential hypertension Qualified Code(s): I10 - Essential (primary) hypertension (10) DVT prophylaxis Current Visit: Yes Status: Acute Assessment and plan: EPCD's ordered. Pharmacologic prophylaxis contraindicated secondary to possible lower GI bleed. (11) History of colon cancer Current Visit: Yes Status: Chronic Assessment and plan: Status post surgery in 2007. She denies any issues since that time. (12) Morbid obesity with BMI of 50.0-59.9, adult Current Visit: Yes Status: Chronic - Subjective Interval history: Patient seen and examined. On examination, patient resting supine in bed. Patient conversing with her daughter. Patient denies pain or shortness of breath at this time. She denies any further rectal bleeding. - Constitutional Vitals: Temp Pulse Resp BP Pulse Ox 98.0 F 76 18 120/69 93 12/25/16 11:05 12/25/16 11:05 12/25/16 11:47 12/25/16 11:05 12/25/16 11:47 General appearance: Present: mild distress, A&O X 3, morbidly obese, pleasant, answers questions appropriately - Head Head exam: Present: atraumatic, normocephalic - Eye Eye exam: Present: PERRL, conjuntiva pink, sclera anicteric Pupils: Present: PERRL - Neck Neck exam general surgery: Present: supple, trachea midline. Absent: lymphadenopathy - Respiratory Respiratory exam: Present: accessory muscle use, decreased breath sounds, respiratory distress (mild), wheezes. Absent: rales, rhonchi - Cardiovascular Cardiovascular exam: Present: RRR, +S1, +S2. Absent: diastolic murmur, gallop, rubs, systolic murmur - GI/Abdominal GI/Abdominal exam: Present: normal bowel sounds, soft, no peritoneal signs. Absent: distended, tenderness - Extremities Exam Extremities exam: Present: pedal edema (3+bilaerally), warm, radial pulses palpable and symetrical. Absent: calf tenderness, cyanotic - Neurological Exam Neurological exam: Present: alert, CN II-XII intact, oriented X3, no focal deficits, strengths equal and symetr throughout. Absent: pronater drift, facial droop, speech deficit - Skin Skin exam: Present: dry, intact, normal color, warm Internal Medicine: Result - Labs CBC & Chem 7: 12/25/16 04:49 12/25/16 04:51 Labs: Short CBC 12/25/16 Range/Units 04:49 WBC 14.1 H (4.3-11.1) K/mcL Hgb 9.6 L (11.5-15.4) g/dL Hct 32.3 L (35.3-44.9) % Plt Count 244 (140-400) K/mcL Neutrophils # 12.8 H (1.6-8.9) K/mcL BMP 12/25/16 04:51 Sodium 133 L Potassium 4.9 H Chloride 89 L Carbon Dioxide 35 H BUN 21 H Creatinine 0.77 Glucose 128 H Calcium 8.7 Urine 12/25/16 Range/Units 02:35 Urine Color Yellow (Yellow) Urine Clarity Clear (Clear) Urine pH 6.0 (5.0-8.0) pH Units Ur Specific [place] 1.009 L (1.010-1.025) Urine Protein Trace (Neg-Trace) mg/dL Urine Glucose (UA) Normal (Normal) mg/dL Consult Discharge Plan - Plan Referrals: Aidan Hendrickson MD [Primary Care Provider] -
[2016-12-25] MEDS ORDERED: SODIUM CHLORIDE/NAHCO3/KCL/PEG 4,000 ML SOLN.RECON PO ONE (17:00)
[2016-12-25] MEDS ORDERED: Insulin DETEMIR 100 UNIT/ML X5UNITS SQ SCH (21:00)
[2016-12-26] MEDS: Insulin LISPRO 300 UNITS/3 ML VIAL SQ SCH ×3 (00:05→13:27)
[2016-12-26] MEDS: Ipratropium/Albuterol Neb 3 ML IH SCH ×4 (00:42→11:00)
[2016-12-26] MEDS: *HR* OxyCODONE/APAP 5/325 TABLET PO PRN ×2 (00:56→15:14)
[2016-12-26 05:51] LABS: Basophils % 0.3 %; Eosinophils # 0.1 K/mcL (0.0-0.6); Eosinophils % 0.7 %; Hematocrit 29.4 % (35.3-44.9); Hemoglobin 8.6 g/dL (11.5-15.4); Immature Granulocytes % 0.6 % (0-4); Lymphocytes # 1.5 K/mcL (0.6-4.6); Mean Corpuscular HGB Conc 29.3 g/dL (31.6-35.5); Mean Corpuscular Hemoglobin 23.8 pg (28.0-33.3); Mean Corpuscular Volume 81.4 fL (83.0-100.0); Mean Platelet Volume 8.7 fL (9.4-12.4); Monocytes % 8.2 %; Neutrophils # 9.1 K/mcL (1.6-8.9); Platelet Count 222 K/mcL (140-400); Red Blood Count 3.61 M/mcL (3.82-4.97); Red Cell Distribution Width 18.2 % (11.5-14.5); Segmented Neutrophils % 77.2 %
[2016-12-26 06:08] LABS: BUN/Creatinine Ratio 26 (6-26); Blood Urea Nitrogen 19 mg/dL (7-20); Calcium 7.9 mg/dL (8.6-10.8); Carbon Dioxide 33 mEq/L (19-29); Chloride 87 mEq/L (98-109); Glucose 129 mg/dL (70-99); Osmolality,Calculated 274 (280-300); Potassium 3.9 mEq/L (3.5-4.5); Sodium 130 mEq/L (136-145); eGFR For African Americans > 60 (> 60); eGFR For Non-African Americans > 60 (> 60)
[2016-12-26] MEDS: Pantoprazole 40 MG VIAL IVP SCH ×2 (06:25→11:21)
[2016-12-26] MEDS: Budesonide/Formoterol 160/4.5 MDI IH SCH (07:52)
[2016-12-26] MEDS ORDERED: Simethicone 40 MG/0.6 ML MLS IR ONE (08:51)
--- NOTE | 2016-12-26 08:52 | Pre-Sedation Evaluation ---
Pre-sedation evaluation - Pre-sedation checklist Date of procedure: 12/26/16 Recent Vitals: Last Vital Signs Temp 97.6 F 12/26/16 07:26 Pulse 70 12/26/16 07:26 Resp 20 12/26/16 07:26 BP 125/73 12/26/16 07:26 Pulse Ox 96 12/26/16 07:26 ASA Classification *see protocol: CLASS III-Severe systemic disease Plan of Care: Pt appropriate candidate for procedure/moderate/conscious sedation , Risks/benefits of procedure/sedation discussed w/ patient/family
[2016-12-26] MEDS ORDERED: *HR* FentaNYL (PF) 100 MCG/2 ML VIAL ONE (08:59)
[2016-12-26] MEDS ORDERED: *HR* Midazolam HCl 5 MG/5 ML VIAL IVP ONE (08:59)
[2016-12-26] MEDS ORDERED: Sulfamethoxazole/Trimeth DS 1 EACH TABLET PO SCH (09:00)
[2016-12-26] MEDS: *HR* Midazolam HCl 5 MG/5 ML VIAL IVP PRN ×2 (09:14→09:17)
[2016-12-26] MEDS: *HR* FentaNYL (PF) 100 MCG/2 ML VIAL IVP PRN ×2 (09:14→09:17)
[2016-12-26] MEDS: Famotidine 20 MG TABLET PO SCH ×2 (11:19→15:14)
[2016-12-26] MEDS: Furosemide 20 MG TABLET PO SCH (11:19)
[2016-12-26] MEDS: amLODIPine 5 MG TABLET PO SCH (11:19)
[2016-12-26] MEDS: predniSONE 20 MG TABLET PO SCH (11:20)
[2016-12-26 13:57] LABS: Hematocrit 30.8 % (35.3-44.9); Hemoglobin 9.1 g/dL (11.5-15.4)
--- NOTE | 2016-12-26 14:28 | Discharge Summary ---
Date of Encounter: 12/26/16 Time of Encounter: 09:30 (and 1300 and 1400) - Discharge Diagnosis (1) UTI (urinary tract infection) Priority: Primary Status: Acute Comments: Urine culture consistent with strep agalactiae. We will initiate round of Augmentin. Allergies to sulfamethoxazole and trimethoprim as well as sulfa. (2) Lower gastrointestinal hemorrhage Priority: Primary Status: Resolved Comments: She remained hemodynamically stable. Status post colonoscopy with blood clot identified and subsequent hemostatic clip placement. (3) COPD exacerbation Priority: Primary Status: Resolved Comments: Patient denied shortness of breath above her normal throughout this admission however she was mildly wheezy upon presentation. Improved on day of discharge. Follow-up outpatient. (4) Diabetes mellitus Priority: Secondary Status: Chronic Comments: Uncontrolled with an A1c in September of 9.4%. Attempted education during this admission, lengthy history of noncompliance. Qualifiers: Diabetes mellitus type: type 2 Diabetes mellitus complication status: without complication Diabetes mellitus retirement insulin use: with retirement use Qualified Code(s): E11.9 - Type 2 diabetes mellitus without complications ; Z79.4 - jail (current) use of insulin (5) Acute kidney injury Priority: Primary Status: Resolved (6) Hypothyroid Priority: Secondary Status: Chronic Comments: TSH checked in June 2016 normal Qualifiers: Hypothyroidism type: unspecified Qualified Code(s): E03.9 - Hypothyroidism , unspecified (7) Diastolic CHF Priority: Primary Status: Acute Comments: Acute on chronic diastolic heart failure. She denied shortness of breath or swelling above her norm during this admission. On examination, she had coarse wheezing throughout and 3+ pitting edema noted bilaterally but she states this is normal for her. Attempted to educate on fluid restricted diet however patient not receptive. Follow up outpatient. Qualifiers: Congestive heart failure chronicity: acute on chronic Qualified Code(s): I50.33 - Acute on chronic diastolic (congestive) heart failure (8) Acute and chronic respiratory failure ([id number]) Priority: Secondary Status: Chronic Comments: Patient with super morbid obesity with BMI of 55 as well as obesity hypoventilation syndrome as well as history of smoking and COPD. She denied shortness of breath above her normal however she was wheezing and had mild respiratory distress on examination she was treated for a mild COPD exacerbation and mild heart failure exacerbation while admitted for GI bleed. Qualifiers: Respiratory failure complication: unspecified whether with hypoxia or hypercapnia Qualified Code(s): J96.20 - Acute and chronic respiratory failure , unspecified whether with hypoxia or hypercapnia (9) Obesity hypoventilation syndrome Priority: Secondary Status: Chronic (10) Hypertension Priority: Secondary Status: Chronic Comments: Controlled. Follow-up outpatient Qualifiers: Hypertension type: essential hypertension Qualified Code(s): I10 - Essential (primary) hypertension (11) DVT prophylaxis Priority: Primary Status: Acute Comments: EPCD's ordered. Pharmacologic prophylaxis contraindicated secondary to lower GI bleed. (12) History of colon cancer Priority: Secondary Status: Chronic Comments: Status post surgery in 2007. She denies any issues since that time. (13) Morbid obesity with BMI of 50.0-59.9, adult Priority: Secondary Status: Chronic - Discharge Medications Prescriptions: GuaiFENesin/Dextromethorphan [Robitussin/Dm] 10 ml PO Q6HR PRN #150 ml PRN Reason: Cough Amoxicillin/Clavulanate [Augmentin] 500 mg PO BIDWM #14 tablet Calcium Polycarbophil [Fibercon] 1,250 mg PO DAILY #60 tablet PredniSONE 40 mg PO DAILY #4 tablet Home Medications: Gabapentin [Neurontin] 400 mg PO DAILY 04/13/15 [History] Amlodipine [Norvasc] 5 mg PO DAILY 30 Days 04/20/15 [Rx] Aspirin 81 mg PO DAILY 30 Days 04/20/15 [Rx] Budesonide/Formoterol 160/4.5 [Symbicort] 2 puff IH BIDR #1 inhaler 04/20/15 [Rx ] Carvedilol [Coreg] 3.125 mg PO BIDWM 30 Days 04/20/15 [Rx] Docusate [Colace] 100 mg PO BID 10 Days 04/20/15 [Rx] Furosemide [Lasix] 20 mg PO DAILY 14 Days 04/20/15 [Rx] Insulin Glargine,Hum.rec.anlog [Lantus Solostar] 40 unit SQ BID 30 Days [Rx] Ipratropium/Albuterol Neb [Duoneb] 3 ml IH [id number] 14 Days 04/20/15 [Rx] Levothyroxine [Synthroid] 100 mcg PO 0630 30 Days 04/20/15 [Rx] Sitagliptin Phos/Metformin HCl [Janumet 50-1,000 mg Tablet] 1 each PO DAILY 30 Days 04/20/15 [Rx] Albuterol Neb [Proventil Neb] 2.5 mg IH TID 12/24/16 [History] Albuterol Sulfate [Proair Hfa] 2 puff IH Q4H PRN 12/24/16 [History] Alendronate Sodium [Fosamax] 70 mg PO TU 12/24/16 [History] Atorvastatin Calcium [Lipitor] 20 mg PO DAILY 12/24/16 [History] Benzonatate 100 mg PO TID PRN 12/24/16 [History] Cholecalciferol (Vitamin D3) [Vitamin D3] 400 unit PO DAILY 12/24/16 [History] Diclofenac Sodium [Voltaren] 1 appl TP QID PRN 12/24/16 [History] GlipiZIDE XL (24 HR) [Glucotrol XL] 10 mg PO 0800 12/24/16 [History] Insulin Aspart Prot/Insuln Asp [Novolog Mix 70-30 Flexpen Syrn] 6 unit SQ DAILY 12/24/16 [History] Losartan [Cozaar] 25 mg PO DAILY 12/24/16 [History] Montelukast [Singulair] 10 mg PO DAILY 12/24/16 [History] Nystatin/Triamcinolone CRM [Mycolog] 1 appl TP BID 12/24/16 [History] Oxygen 2 - 3 l NS CONT 12/24/16 [History] Ranitidine HCl [Heartburn Relief] 150 mg PO BID 12/24/16 [History] Tizanidine HCl 4 mg PO TID PRN 12/24/16 [History] Tramadol HCl [Ultram] 50 mg PO BID PRN 12/24/16 [History] Amoxicillin/Clavulanate [Augmentin] 500 mg PO BIDWM #14 tablet 12/26/16 [Rx] Calcium Polycarbophil [Fibercon] 1,250 mg PO DAILY #60 tablet 12/26/16 [Rx] GuaiFENesin/Dextromethorphan [Robitussin/Dm] 10 ml PO Q6HR PRN #150 ml 12/26/16 [Rx] PredniSONE 40 mg PO DAILY #4 tablet 12/26/16 [Rx] Allergies/Adverse Reactions: Allergies sulfamethoxazole [From Bactrim] Allergy (Verified 07/17/16 17:20) Rash trimethoprim [From Bactrim] Allergy (Verified 07/17/16 17:20) Rash Sulfa (Sulfonamide Antibiotics) Adverse Reaction (Verified 07/17/16 17:20) Rash Date of admission: 12/24/16 23:25 Primary care physician: Aidan Hendrickson MD Consults: 12/24/16 23:58 Consult to Gastroenterology [CONS] Routine Consulting Provider: Gastroenterology July Reason for Consult: Rectal bleeding, Hx of colon cancer Call Completed: No 12/26/16 07:25 Consult to PICC team [Consult to Invasive Line Access Team] [CONS] Stat Reason for Consult: Colonoscopy Line Type: EPIV PICC line indications: Limited vascular access Time Notified: 07:26 Call Completed: Yes Discharging clinician: Scarlet Reddy Anticipated date of discharge: 12/26/16 - Patient Status Disposition: Home Health Service Condition: Fair Functional capacity at discharge: uses cane/walker Overall status at discharge: patient is back to baseline - Discharge Instructions Follow Up With: Aidan Hendrickson MD [Primary Care Provider] - Additional Instructions: Follow-up with primary care provider within one to 2 weeks - Diet and Activity Activity: as per physical therapy, increase activity as tolerated Diet: diabetic diet, low fat, low cholesterol, low salt diet, other (Fluid restriction 2 L per day) Hospital course: Ms. Ponce is a 76 year old female with past medical history of CHF, COPD on oxygen at home, diabetes uncontrolled, hypertension, morbid obesity, prior colon cancer status post surgery in 2007. Patient presented to the emergency department chief complaint of rectal bleeding that started on the morning of presentation. Patient stating she noted blood in the toilet paper and blood mixed in with her stool on the morning of presentation. She denied diarrhea and endorsed recent constipation and use of jqqj-qzo-yosflor stool softeners. Patient denied nausea or vomiting. She denied lightheadedness, dizziness, shortness of breath, or chest pain. Workup in the emergency department unremarkable. Patient was admitted to the hospitalist service for further evaluation and management. Patient with mild acute kidney injury that resolved. On examination, patient was wheezing and thought to have mild respiratory distress she was treated for mild COPD exacerbation even though she denied shortness of breath above her norm and did not have increased need for oxygenation. Aeration improved slightly with this treatment. She also had 3+ pitting edema bilaterally and she was treated for a mild exacerbation of her heart failure although she stated that her legs were at her baseline. GI was brought on board and the patient had a colonoscopy in which a blood clot was removed and a clip was placed with a recommendation for daily fiber use. Patient had no more bouts of rectal bleeding while admitted and she remained hemodynamically stable. Her urinalysis was also abnormal and urine culture was consistent with strep agalactiae and she was started on Augmentin. Allergies to sulfa, trimethoprim noted. Overall, she was at her baseline on day of discharge. She was discharged home with her regular home health services in stable condition with close outpatient follow-up recommended. Colonoscopy impression: Diverticulosis in the entire examined colon. Stigmata of recent bleeding was present in the descending colon inside one of the diverticulum. Clip was placed. Recommendation: Use fiber, for example Citrucel , FiberCon, Konsyl, or Metamucil - Time Spent with Patient Total time spent providing and/or coordinating discharge services: - Constitutional Vitals: Temp Pulse Resp BP Pulse Ox 97.5 F L 69 20 136/54 91 12/26/16 11:47 12/26/16 11:47 12/26/16 11:47 12/26/16 11:47 12/26/16 11:47 General appearance: Present: A&O X 3, morbidly obese, pleasant, no acute distress, answers questions appropriately - Head Head exam: Present: atraumatic, normocephalic - Eye Eye exam: Present: PERRL, conjuntiva pink, sclera anicteric Pupils: Present: PERRL - Neck Neck exam general surgery: Present: supple, trachea midline. Absent: lymphadenopathy - Respiratory Respiratory exam: Present: decreased breath sounds. Absent: accessory muscle use, rales, respiratory distress, rhonchi, wheezes - Cardiovascular Cardiovascular exam: Present: RRR, +S1, +S2. Absent: diastolic murmur, gallop, rubs, systolic murmur - GI/Abdominal GI/Abdominal exam: Present: normal bowel sounds, soft, no peritoneal signs. Absent: distended, tenderness - Extremities Exam Extremities exam: Present: pedal edema, warm, radial pulses palpable and symetrical. Absent: calf tenderness, cyanotic - Neurological Exam Neurological exam: Present: alert, CN II-XII intact, oriented X3, no focal deficits, strengths equal and symetr throughout. Absent: pronater drift, facial droop, speech deficit - Skin Skin exam: Present: dry, intact, pallor, warm
[2016-12-26 14:32] VITALS: BP 142/70
--- NOTE | 2016-12-26 15:29 | Physician Discharge Referral ---
Home Health/Hosp Referral Info Transfer to: Home Health Attending Provider: Alem Reddy CNP Provider in Charge Post Discharge: PCP - Diagnosis (1) UTI (urinary tract infection) Priority: Primary Status: Acute (2) Lower gastrointestinal hemorrhage Priority: Primary Status: Resolved (3) COPD exacerbation Priority: Primary Status: Resolved (4) Diabetes mellitus Priority: Secondary Status: Chronic (5) Acute kidney injury Priority: Primary Status: Resolved (6) Hypothyroid Priority: Secondary Status: Chronic (7) Diastolic CHF Priority: Primary Status: Acute (8) Acute and chronic respiratory failure ([id number]) Priority: Secondary Status: Chronic (9) Obesity hypoventilation syndrome Priority: Secondary Status: Chronic (10) Hypertension Priority: Secondary Status: Chronic (11) DVT prophylaxis Priority: Primary Status: Acute (12) History of colon cancer Priority: Secondary Status: Chronic (13) Morbid obesity with BMI of 50.0-59.9, adult Priority: Secondary Status: Chronic - Respiratory Orders Oxygen / L per min (2-3) Smoking Cessation: Smoking cessation has been advised. For more information, call the [facility] Quit Line at 2-366-GNOY-NOW. - Diet/Nutrition Diet/Nutrition Orders: No Added Salt (SLICK), Renal, Cardiac, No Concentrated Sweets - Activity Activity Orders: Ambulate, Walker - Services Needed Following services are medically necessary services: Nursing, Home Health Aide, Physical Therapy - Transfer Medications Prescriptions: GuaiFENesin/Dextromethorphan [Robitussin/Dm] 10 ml PO Q6HR PRN #150 ml PRN Reason: Cough Amoxicillin/Clavulanate [Augmentin] 500 mg PO BIDWM #14 tablet Calcium Polycarbophil [Fibercon] 1,250 mg PO DAILY #60 tablet PredniSONE 40 mg PO DAILY #4 tablet Home Medications: Gabapentin [Neurontin] 400 mg PO DAILY 04/13/15 [History] Amlodipine [Norvasc] 5 mg PO DAILY 30 Days 04/20/15 [Rx] Aspirin 81 mg PO DAILY 30 Days 04/20/15 [Rx] Budesonide/Formoterol 160/4.5 [Symbicort] 2 puff IH BIDR #1 inhaler 04/20/15 [Rx ] Carvedilol [Coreg] 3.125 mg PO BIDWM 30 Days 04/20/15 [Rx] Docusate [Colace] 100 mg PO BID 10 Days 04/20/15 [Rx] Furosemide [Lasix] 20 mg PO DAILY 14 Days 04/20/15 [Rx] Insulin Glargine,Hum.rec.anlog [Lantus Solostar] 40 unit SQ BID 30 Days [Rx] Ipratropium/Albuterol Neb [Duoneb] 3 ml IH [id number] 14 Days 04/20/15 [Rx] Levothyroxine [Synthroid] 100 mcg PO 0630 30 Days 04/20/15 [Rx] Sitagliptin Phos/Metformin HCl [Janumet 50-1,000 mg Tablet] 1 each PO DAILY 30 Days 04/20/15 [Rx] Albuterol Neb [Proventil Neb] 2.5 mg IH TID 12/24/16 [History] Albuterol Sulfate [Proair Hfa] 2 puff IH Q4H PRN 12/24/16 [History] Alendronate Sodium [Fosamax] 70 mg PO TU 12/24/16 [History] Atorvastatin Calcium [Lipitor] 20 mg PO DAILY 12/24/16 [History] Benzonatate 100 mg PO TID PRN 12/24/16 [History] Cholecalciferol (Vitamin D3) [Vitamin D3] 400 unit PO DAILY 12/24/16 [History] Diclofenac Sodium [Voltaren] 1 appl TP QID PRN 12/24/16 [History] GlipiZIDE XL (24 HR) [Glucotrol XL] 10 mg PO 0800 12/24/16 [History] Insulin Aspart Prot/Insuln Asp [Novolog Mix 70-30 Flexpen Syrn] 6 unit SQ DAILY 12/24/16 [History] Losartan [Cozaar] 25 mg PO DAILY 12/24/16 [History] Montelukast [Singulair] 10 mg PO DAILY 12/24/16 [History] Nystatin/Triamcinolone CRM [Mycolog] 1 appl TP BID 12/24/16 [History] Oxygen 2 - 3 l NS CONT 12/24/16 [History] Ranitidine HCl [Heartburn Relief] 150 mg PO BID 12/24/16 [History] Tizanidine HCl 4 mg PO TID PRN 12/24/16 [History] Tramadol HCl [Ultram] 50 mg PO BID PRN 12/24/16 [History] Amoxicillin/Clavulanate [Augmentin] 500 mg PO BIDWM #14 tablet 12/26/16 [Rx] Calcium Polycarbophil [Fibercon] 1,250 mg PO DAILY #60 tablet 12/26/16 [Rx] GuaiFENesin/Dextromethorphan [Robitussin/Dm] 10 ml PO Q6HR PRN #150 ml 12/26/16 [Rx] PredniSONE 40 mg PO DAILY #4 tablet 12/26/16 [Rx] Allergies/Adverse Reactions: Allergies sulfamethoxazole [From Bactrim] Allergy (Verified 07/17/16 17:20) Rash trimethoprim [From Bactrim] Allergy (Verified 07/17/16 17:20) Rash Sulfa (Sulfonamide Antibiotics) Adverse Reaction (Verified 07/17/16 17:20) Rash Certification: Further, I certify that my clinical findings support that this patient is homebound (i.e. absences from home require considerable and taxing effort and are for medical reasons or orthodoxy services or infrequently or short duration when for other reasons) because: Homebound Reason: Patient requires assistance of a person or device to safely leave home, Leaving home requires considerable and taxing effort due to condition, Severity of cardiac or pulmonary status limits activity tolerance Attestation: My signature below is to certify that this patient is under my care and that I, or nurse practitioner, or a physician's microbiology lab assistant working with me, has a face-to -face encounter with this patient.
== END 2016-12-26 16:31 | disposition home health service (06) ==
LOC: EMEROO 19:57 → 3BNU 19:57
PROVIDERS: ADMIT Internal Medicine; ATTEND Nurse Practitioner Family

== ENCOUNTER 2017-02-16 15:08 | Inpatient (IN) ==
[~2017-02-16 15:08] MED LIST: Insulin NPH/REG 70/30 300 UNIT/3 ML VIAL SQ PRN
[2017-02-16] MEDS ORDERED: predniSONE 20 MG TABLET PO ONE (15:12)
[2017-02-16] MEDS ORDERED: Ipratropium/Albuterol Neb 3 ML IH ONE (15:12)
--- NOTE | 2017-02-16 15:16 | Emergency Department Note ---
Disposition Clinical Impression: Acute exacerbation of CHF (congestive heart failure) Qualifiers: Congestive heart failure type: combined Qualified Code(s): I50.43 - Acute on chronic combined systolic (congestive) and diastolic (congestive) heart failure Anemia Qualifiers: Anemia type: unspecified type Qualified Code(s): D64.9 - Anemia, unspecified Disposition: Admitted As Inpatient Condition: Undetermined Referrals: Aidan Hendrickson MD [Primary Care Provider] - Forms: ED Satisfaction Letter Time of Disposition: 17:36 SOB HPI - General Chief Complaint: ED Shortness of Breath/Dyspnea Stated Complaint: VANITA/hypoxia Time Seen by Provider: 02/16/17 15:11 Source: patient Mode of arrival: EMS Limitations: no limitations Nursing Notes Reviewed: Yes Vital Signs Reviewed: Yes - History of Present Illness 76-year-old female with history of COPD arrives to [facility] emergency department with difficulty breathing. The patient states that she has been using her 3 L oxygen at home chronically as well as utilizing her breathing treatments consistently [id number]. The patient states that she had dropped into the mid 50s last night with her O2 saturation at home per history per EMS in the patient. In addition EMS states that the patient was 73 % saturation on 3 L nasal cannula. The patient denies any chest pain, fevers, cough, sputum production, abdominal pain, unilateral leg swelling. The patient does have chronically swollen legs and bilateral lower extremities that are warm to palpation at this time. Patient denies any history of DVT or PE. The patient was on 15 L on rebreather mask upon arrival to the emergency department. Her O2 saturations at that time were 98%. The patient was resting comfortably in cot upon arrival. No other complaints at this time. Pt Subjective Complaint: shortness of breath Onset (ago): day(s) (2-3) Severity: severe Consistency/Duration: constant, gradually worsening Improves with: oxygen, bronchodilators Worsens with: exertion Known history of: COPD Associated symptoms: Reports: denies other symptoms Treatment prior to arrival: oxygen Cough present: No Sputum production: No - Related Data Home oxygen amount: 3 liters Home Medications Medication Instructions Recorded Confirmed Gabapentin [Neurontin] 400 mg PO DAILY 04/13/15 12/24/16 Albuterol Neb [Proventil Neb] 2.5 mg IH TID 12/24/16 12/24/16 Albuterol Sulfate [Proair Hfa] 2 puff IH Q4H PRN 12/24/16 12/24/16 Alendronate Sodium [Fosamax] 70 mg PO TU 12/24/16 12/24/16 Atorvastatin Calcium [Lipitor] 20 mg PO DAILY 12/24/16 12/24/16 Benzonatate 100 mg PO TID PRN 12/24/16 12/24/16 Cholecalciferol (Vitamin D3) 400 unit PO DAILY 12/24/16 12/24/16 [Vitamin D3] Diclofenac Sodium [Voltaren] 1 appl TP QID PRN 12/24/16 12/24/16 GlipiZIDE XL (24 HR) [Glucotrol XL] 10 mg PO 0800 12/24/16 12/24/16 Insulin Aspart Prot/Insuln Asp 6 unit SQ DAILY 12/24/16 12/24/16 [Novolog Mix 70-30 Flexpen Syrn] Losartan [Cozaar] 25 mg PO DAILY 12/24/16 12/24/16 Montelukast [Singulair] 10 mg PO DAILY 12/24/16 12/24/16 Nystatin/Triamcinolone CRM 1 appl TP BID 12/24/16 12/24/16 [Mycolog] Oxygen 2 - 3 l NS CONT 12/24/16 12/24/16 Ranitidine HCl [Heartburn Relief] 150 mg PO BID 12/24/16 12/24/16 Tizanidine HCl 4 mg PO TID PRN 12/24/16 12/24/16 Tramadol HCl [Ultram] 50 mg PO BID PRN 12/24/16 12/24/16 Previous Rx's Medication Instructions Recorded Amlodipine [Norvasc] 5 mg PO DAILY 30 Days 04/20/15 Aspirin 81 mg PO DAILY 30 Days 04/20/15 Budesonide/Formoterol 160/4.5 2 puff IH BIDR #1 inhaler 04/20/15 [Symbicort] Carvedilol [Coreg] 3.125 mg PO BIDWM 30 Days 04/20/15 Docusate [Colace] 100 mg PO BID 10 Days 04/20/15 Furosemide [Lasix] 20 mg PO DAILY 14 Days 04/20/15 Insulin Glargine,Hum.rec.anlog 40 unit SQ BID 30 Days 04/20/15 [Lantus Solostar] Ipratropium/Albuterol Neb [Duoneb] 3 ml IH [id number] 14 Days 04/20/15 Levothyroxine [Synthroid] 100 mcg PO 0630 30 Days 04/20/15 Sitagliptin Phos/Metformin HCl 1 each PO DAILY 30 Days 04/20/15 [Janumet 50-1,000 mg Tablet] Amoxicillin/Clavulanate [Augmentin] 500 mg PO BIDWM #14 tablet 12/26/16 Calcium Polycarbophil [Fibercon] 1,250 mg PO DAILY #60 tablet 12/26/16 GuaiFENesin/Dextromethorphan 10 ml PO Q6HR PRN #150 ml 12/26/16 [Robitussin/Dm] predniSONE [PredniSONE] 40 mg PO DAILY #4 tablet 12/26/16 Allergies Allergy/AdvReac Type Severity Reaction Status Date / Time sulfamethoxazole Allergy Rash Verified 02/16/17 15:10 [From Bactrim] trimethoprim [From Bactrim] Allergy Rash Verified 02/16/17 15:10 Sulfa (Sulfonamide AdvReac Rash Verified 02/16/17 15:10 Antibiotics) All systems ED: reviewed and negative except as stated. Constitutional: Denies: fever, chills, weakness, weight change Cardiovascular: Denies: chest pain, palpitations, dyspnea on exertion, edema, syncope Respiratory: Reports: dyspnea. Denies: cough, wheezes, hemoptysis, stridor Gastrointestinal: Denies: abdominal pain, nausea, vomiting, diarrhea, constipation, hematemesis, melena, hematochezia Musculoskeletal: Denies: back pain, neck pain, arthralgia, myalgia Integumentary: Denies: rash, abrasion, lesions Neurological: Denies: headache, weakness, numbness, paresthesias, confusion, abnormal gait, vertigo Past Medical History - Past Medical History Attestation: Yes The following information was validated with the patient. Source: patient Medical history: Reports: arthritis, asthma, cancer, CHF, COPD, diabetes, hypertension, osteoporosis Surgical history: Reports: cancer surgery Psychiatric history: Reports: no psych history - Social History Smoking Status: Former smoker Smokeless Tobacco Status: No Alcohol use: Reports: none Drug use: Reports: none Physical Exam - General Limitations: no limitations General appearance: alert, in no apparent distress - Neck Neck exam: Present: normal inspection, full ROM, trachea midline - Chest Chest inspection: Present: normal inspection, symmetric chest wall rise - Respiratory Respiratory exam: Present: wheezes (Mild diffuse), other (Decreased breath sounds bilaterally.) - Cardiovascular Cardiovascular exam: Present: regular rate, normal rhythm, normal heart sounds - Abdominal Exam Abdominal exam: Present: soft, Non-Tender. Absent: tenderness, distention, guarding, rebound, rigidity - Extremities Exam Extremities exam: Present: full ROM, tenderness, other (Swelling bilateral lower extremity is with mild associated erythema) - Back Exam Back exam: Present: normal inspection, full ROM. Absent: tenderness - Neurological Exam Neurological exam: Present: alert, oriented X3 Course Vital Signs Temperature 97.7 F 02/16/17 15:10 Pulse Rate 62 02/16/17 15:10 Respiratory Rate 28 02/16/17 15:10 Blood Pressure 148/64 02/16/17 15:10 O2 Sat by Pulse Oximetry 97 02/16/17 15:10 Temperature 97.7 F 02/16/17 15:10 Pulse Rate 62 02/16/17 15:10 Respiratory Rate 12 02/16/17 15:17 Blood Pressure 148/64 02/16/17 15:10 O2 Sat by Pulse Oximetry 97 02/16/17 15:23 Oxygen Delivery Oxygen Delivery Non Rebreather Mask Shortness of Breath/Dyspnea - MDM Narrative Medical decision making narrative: Workup here in the emergency department consistent with CHF exacerbation. The patient has pulmonary edema on chest x-ray. In addition the patient's hemoglobin is 7.3. Will admit the patient to the hospital. She has been placed on BiPAP as well as given nitroglycerin. The patient is now currently resting comfortably. Patient's family does state that the patient has had some bloody stools in the past. There is concern about this given the patient's hemoglobin being 7.3 at this time. I am concerned about her being symptomatic with this. We will admit the patient to the hospital at this time. She is asleep and resting comfortably with an O2 sat of 96% on BiPAP. Accepted by DRIVER OPERATOR for hospitalist. - Medical Records Medical records reviewed: Yes I reviewed the patient's medical records. - Lab Data Lab results reviewed: Yes I reviewed the patient's lab results. Result diagrams: 02/16/17 15:47 02/16/17 15:47 Lab Results 02/16/17 02/16/17 Range/Units 15:47 15:47 WBC 15.2 H (4.3-11.1) K/mcL RBC 3.65 L (3.82-4.97) M/mcL Hgb 7.3 L (11.5-15.4) g/dL Hct 27.8 L (35.3-44.9) % MCV 76.2 L (83.0-100.0) fL MCH 20.0 L (28.0-33.3) pg MCHC 26.3 L (31.6-35.5) g/dL RDW 20.1 H (11.5-14.5) % Plt Count 263 (140-400) K/mcL MPV 8.5 L (9.4-12.4) fL Seg Neutrophils % 88.0 % Lymphocytes % 4.0 % Monocytes % 4.0 % Eosinophils % 4.0 % Neutrophils # 13.4 H (1.6-8.9) K/mcL Lymphocytes # 0.6 (0.6-4.6) K/mcL Monocytes # 0.6 (0.0-1.3) K/mcL Eosinophils # 0.6 (0.0-0.6) K/mcL Nucleated RBCs/100 WBC 0.5 H (0) /100 WBC Platelet Estimate Normal (Normal) Hypochromasia Present A (Not Present) Anisocytosis 2+ A (Not Present) Sodium 132 L (136-145) mEq/L Potassium 5.4 H (3.5-4.5) mEq/L Chloride 86 L (98-109) mEq/L Carbon Dioxide 38 H (19-29) mEq/L BUN 21 H (7-20) mg/dL Creatinine 0.95 (0.57-1.11) mg/dL Est GFR ( Amer) > 60 (> 60) Est GFR (Non-Af Amer) 57 L (> 60) BUN/Creatinine Ratio 22 (6-26) Glucose 206 H (70-99) mg/dL Calculated Osmolality 283 (280-300) Calcium 7.7 L (8.6-10.8) mg/dL - Radiology Data Radiology results reviewed: Yes I reviewed the patient's radiology results. - EKG Data EKG attestation: Yes I reviewed and interpreted this EKG. EKG results narrative: Heart rate 67 bpm. W[place] interval 211 ms. QTc 424 ms. Normal axis. Normal sinus rhythm. No ST elevation or ST depression noted. No acute changes noted.
[2017-02-16 16:10] LABS: Nucleated Red Blood Cells 0.5 /100 WBC (0)
--- NOTE | 2017-02-16 16:10 | Emergency Department Note ---
START Narrative - START START: I examined this patient and my medical decision-making was reviewed with the DRAFTER STRUCTURAL/PA/Advanced Practice Nurse/Resident Physician. I agree with the documented findings, disposition and treatment plan as described except to the extent set forth below. ED attending note: I saw this Patient with the emergency medicine resident Dr. Schwarz. Please see a copy of his note for details of the H&P, evaluation, management and disposition of this emergency Department patient. We independently had [id number] contact with the patient. Briefly 76-year-old female by EMS history of COPD on home oxygen presents with increasing shortness of breath for 1 month. O2 sats were down to mid-70's her family members. Was emergently placed on BiPAP here and is doing better. She has bibasilar rales and chest x-ray supporting acute pulmonary edema. Patient with a troponin among other screening labs nitrates and IV Lasix. Plan is admission for CHF and COPD flare along with transient hypoxia. Provided 45 minutes of critical care service for this patient. Disposition pending.
[2017-02-16 16:12] LABS: Hematocrit 27.8 % (35.3-44.9); Mean Corpuscular HGB Conc 26.3 g/dL (31.6-35.5); Mean Corpuscular Volume 76.2 fL (83.0-100.0); Mean Platelet Volume 8.5 fL (9.4-12.4); Platelet Count 263 K/mcL (140-400); Red Blood Count 3.65 M/mcL (3.82-4.97); Red Cell Distribution Width 20.1 % (11.5-14.5)
[2017-02-16 16:22] LABS: BUN/Creatinine Ratio 22 (6-26); Blood Urea Nitrogen 21 mg/dL (7-20); Calcium 7.7 mg/dL (8.6-10.8); Carbon Dioxide 38 mEq/L (19-29); Chloride 86 mEq/L (98-109); Glucose 206 mg/dL (70-99); Hemoglobin 7.3 g/dL (11.5-15.4); Osmolality,Calculated 283 (280-300); Potassium 5.4 mEq/L (3.5-4.5); Sodium 132 mEq/L (136-145); eGFR For African Americans > 60 (> 60); eGFR For Non-African Americans 57 (> 60)
[2017-02-16 16:32] LABS: Eosinophils # 0.6 K/mcL (0.0-0.6); Lymphocytes # 0.6 K/mcL (0.6-4.6); Monocytes # 0.6 K/mcL (0.0-1.3); Neutrophils # 13.4 K/mcL (1.6-8.9)
[2017-02-16 16:33] LABS: Anisocytosis 2+ (Not Present); Hypochromasia Present (Not Present)
[2017-02-16 16:34] LABS: Platelet Estimate Normal (Normal)
[2017-02-16] MEDS: Nitroglycerin 0.4 MG TAB.SUBL SL PRN ×2 (17:06→17:12)
[2017-02-16] MEDS ORDERED: Furosemide 40 MG/4 ML VIAL IVP ONE ×2 (20:15→20:25)
[2017-02-16 20:41] LABS: Magnesium 1.6 mg/dL (1.6-2.6)
[2017-02-16] MEDS ORDERED: NON-FORMULARY MEDICATION 1 EACH EACH (Insulin Aspart Prot/Insuln Asp [Novolog Mix 70-30 Fl SQ PRN (20:58)
[2017-02-16] MEDS ORDERED: (Diclofenac Sodium [Voltaren] 1 APPL) TP PRN (20:58)
[2017-02-16] MEDS ORDERED: traMADol 50 MG TABLET PO PRN (20:58)
[2017-02-16] MEDS ORDERED: Naloxone 0.4 MG/ML INJ IVP PRN (21:03)
[2017-02-16] MEDS ORDERED: Ondansetron 4 MG/2 ML VIAL IVP PRN (21:03)
[2017-02-16] MEDS ORDERED: *HR* Morphine 2 MG/ML SYRINGE IVP PRN (21:03)
[2017-02-16] MEDS ORDERED: Acetaminophen 325 MG TABLET PO PRN (21:03)
--- NOTE | 2017-02-16 21:22 | Internal Med History&Physical ---
Date of Encounter: 02/16/17 Time of Encounter: 20:00 Assessment and Plan (1) Acute exacerbation of CHF (congestive heart failure) Current visit: Yes Status: Acute Patient presents with extreme shortness of breath, dyspnea with and without exertion, and hypoxia related to diagnosis of acute exacerbation of CHF. Patient's SPO2 varies between 50s and 70s on nasal cannula, so patient will placed on BiPAP continuous to keep SPO2 in the 90s. Patient to receive IV Lasix daily, duo nebs every 4, and fluid restriction diet with sodium restriction. Echocardiogram ordered. We will monitor patient for continued signs of fluid overload and adjust Lasix dosing accordingly. Qualifiers: Congestive heart failure type: diastolic Qualified Code(s): I50.33 - Acute on chronic diastolic (congestive) heart failure (2) Leukocytosis Current visit: Yes Status: Acute Patient presents with WBCs of 15.2 but does not currently meet sepsis criteria as heart rate 62, respiration rate is 12-16, and temperature is 97.7 monitor follow-up CBC in a.m. for WBC. Patient has history of UTIs, so urinalysis ordered and will consider urine culture based on urinalysis results. Lactic acid ordered and is currently 0.6. Qualifiers: Leukocytosis type: other Qualified Code(s): D72.828 - Other elevated white blood cell count (3) Anemia Current visit: Yes Status: Acute Patient presents with acute anemia with hemoglobin of 7.3, hematocrit of 27.8, MCV of 76.2, and MCH of 20.0. Patient has a history of fecal occult blood and reports colonoscopy approximately one month ago to help resolve symptoms. Patient's daughter's report black stool occasionally over the past several weeks. Fecal occult blood ordered, ferritin/folate/B12 ordered. Type and screen ordered due to possible need for transfusion. Will monitor patient for any bleeding. Qualifiers: Anemia type: iron deficiency Iron deficiency anemia type: chronic blood loss Qualified Code(s): D50.0 - Iron deficiency anemia secondary to blood loss (chronic) (4) COPD (chronic obstructive pulmonary disease) Current visit: Yes Status: Chronic Patient presents with history of chronic obstructive pulmonary disease. DuoNebs ordered Q4. Will monitor patient and SpO2 for respiratory status. Qualifiers: COPD type: emphysema Emphysema type: unspecified Qualified Code(s): J43.9 - Emphysema, unspecified (5) Diabetes mellitus Current visit: No Status: Chronic Patient presents with history of diabetes with insulin dependency. Will continue patient's insulin and monitor blood glucose ACHS. A1C ordered. Qualifiers: Diabetes mellitus type: type 2 Diabetes mellitus complication status: without complication Diabetes mellitus joint terminal attack controller insulin use: with long-term use Qualified Code(s): E11.9 - Type 2 diabetes mellitus without complications ; Z79.4 - supervisor intermediates (current) use of insulin (6) Hypertension Current visit: Yes Status: Chronic Patient presents with history of chronic hypertension. Will continue patient's Cozaar and Norvasc and monitor patient and vital signs. Qualifiers: Hypertension type: essential hypertension Qualified Code(s): I10 - Essential (primary) hypertension (7) DVT prophylaxis Current visit: No Status: Acute Patient to be placed on DVT prophylaxis due to admission protocol and bed rest status. Pharmacologic prophylaxis contraindicated due to possible GI bleed so will place SCDs bilaterally on patient's LEs. Internal Medicine - H&P: HPI Chief complaint: SOB/Hypoxia Admitted From: Emergency Dept Plans for Post Hospital Care: Home History of present illness: Mrs. Ponce is a 76 year old female presents from the ED with chief complaint of extreme shortness of breath and dyspnea. Patient states she uses oxygen at home on 3 L around the clock but last night her SPO2 was between the 50s and 70s on nasal cannula. Patient states she [place] thyroid bed took some deep breaths and SPO2 improved into the 90s but then dropped again. Patient's daughters [facility] and had patient brought to the ED. Patient states she was admitted to [place] in late December with similar symptoms of shortness of breath and was diagnosed with acute hypercapnic respiratory failure due to obstructive sleep apnea. Her records from [place] have been ordered. Patient also reports having a colonoscopy approximately one month ago that was due to rectal bleeding and blood clot. Patient's daughters report she has had several black stools since the procedure. Fecal occult test ordered. Patient denies any recent illness, fever, chills, nausea, vomiting, diarrhea, abdominal pain, headache, or generalized weakness. Upon admission, patient has WBC of 15.2 with no symptomatology of infection and without meeting sepsis criteria (HR 62, RR 16, Temp 97.7). Will continue to monitor patient for signs of sepsis. Patient is at high risk for respiratory failure based on current hypoxia and symptomatology will be placed his inpatient status due to diagnosis of acute exacerbation of CHF. Patient did receive IV Lasix, DuoNeb's every 4, fluid restriction diet with sodium restrictions, echocardiogram, and we will recheck CBC in the a.m. for WBC and other lab values. Patient has a medical history of arthritis, asthma, breast and colon cancer which she reports is resolved, CHF, COPD, diabetes, hypertension, and osteoporosis. Patient to be monitored closely. Time spent with patient 40 minutes. Past Med Surg Social Fam HX - Past Medical History Source: patient Medical history: arthritis, asthma, cancer, CHF, COPD, diabetes, hyperlipidemia , hypertension, osteoporosis Psychiatric history: no psych history - Past Surgical History Surgical History: cancer surgery (Breast and colon) - Social History Smoking Status: Former smoker Smokeless Tobacco Status: No Alcohol use: none Drug use: none Current living situation: Home Activity Level: Independent ambulation, Uses cane/walker Recent Out of Country Travel Within the Last 8 Weeks: No Exposure or Possible Exposure to Illness During Travel: No - Family History Mother Race: Family Member Ethnicity: Non- Living Status: Age at : 54 Cause of : NE Hx Family Cardiac Disorders: Yes (NE) Father Race: Family Member Ethnicity: Non- Living Status: Age at : 84 Cause of : HD Hx Family Cardiac Disorders: Yes (HTN) Hx Family Endocrine Disorder: Yes (DM) Brother Race: Family Member Ethnicity: Non- Living Status: Age at : 78 Cause of : NE Hx Family Cardiac Disorders: Yes (NE) Sister Race: Family Member Ethnicity: Non- Living Status: Still Living Hx Family Cardiac Disorders: Yes (Afib) Internal Medicine - H&P: Meds Gabapentin [Neurontin] 400 mg PO TID 04/13/15 [History] Amlodipine [Norvasc] 5 mg PO DAILY 30 Days 04/20/15 [Rx] Aspirin 81 mg PO DAILY 30 Days 04/20/15 [Rx] Budesonide/Formoterol 160/4.5 [Symbicort] 2 puff IH BIDR #1 inhaler 04/20/15 [Rx ] Carvedilol [Coreg] 3.125 mg PO BIDWM 30 Days 04/20/15 [Rx] Insulin Glargine,Hum.rec.anlog [Lantus Solostar] 40 unit SQ BID 30 Days [Rx] Ipratropium/Albuterol Neb [Duoneb] 3 ml IH [id number] 14 Days 04/20/15 [Rx] Sitagliptin Phos/Metformin HCl [Janumet 50-1,000 mg Tablet] 1 each PO DAILY 30 Days 04/20/15 [Rx] Albuterol Neb [Proventil Neb] 2.5 mg IH TID 12/24/16 [History] Albuterol Sulfate [Proair Hfa] 2 puff IH Q4H PRN 12/24/16 [History] Alendronate Sodium [Fosamax] 70 mg PO TU 12/24/16 [History] Atorvastatin Calcium [Lipitor] 20 mg PO DAILY 12/24/16 [History] Cholecalciferol (Vitamin D3) [Vitamin D3] 400 unit PO DAILY 12/24/16 [History] Diclofenac Sodium [Voltaren] 1 appl TP QID PRN 12/24/16 [History] GlipiZIDE XL (24 HR) [Glucotrol XL] 10 mg PO 0800 12/24/16 [History] Insulin Aspart Prot/Insuln Asp [Novolog Mix 70-30 Flexpen Syrn] 10 unit SQ TID PRN 12/24/16 [History] Losartan [Cozaar] 25 mg PO DAILY 12/24/16 [History] Montelukast [Singulair] 10 mg PO DAILY 12/24/16 [History] Nystatin/Triamcinolone CRM [Mycolog] 1 appl TP BID 12/24/16 [History] Oxygen 2 - 3 l NS CONT 12/24/16 [History] Ranitidine HCl [Heartburn Relief] 150 mg PO BID 12/24/16 [History] Tramadol HCl [Ultram] 50 mg PO BID PRN 12/24/16 [History] Calcium Polycarbophil [Fibercon] 1,250 mg PO DAILY #60 tablet 12/26/16 [Rx] Docusate [Colace] 200 mg PO HS PRN 02/16/17 [History] Furosemide [Lasix] 40 - 80 mg PO DAILY 02/16/17 [History] Levothyroxine [Synthroid] 175 mcg PO 0630 02/16/17 [History] Oxycodone HCl/Acetaminophen [Percocet 5-325 mg Tablet] 1 tab PO BID 02/16/17 [ History] Allergies sulfamethoxazole [From Bactrim] Allergy (Verified 02/16/17 19:58) Rash trimethoprim [From Bactrim] Allergy (Verified 02/16/17 19:58) Rash Sulfa (Sulfonamide Antibiotics) Adverse Reaction (Verified 02/16/17 19:58) Rash All Systems PM: A 10-system review of systems was performed and is negative for pertinent findings except as documented above in the HPI. - Constitutional Constitutional: no chills, no fever(s), no night sweats - EENT Eyes: no change in vision, no discharge, no pain, no photophobia Ears: no ear discharge, no ear pain, no tinnitus Nose, mouth and throat: no dysphagia, no nasal discharge, no neck pain, no sore throat - Breasts Breasts: as per HPI - Cardiovascular Cardiovascular ROS IM: as per HPI, dyspnea, dyspnea on exertion, edema ( Bilateral of LE), orthopnea, no chest pain, no diaphoresis, no lightheadedness, no palpitations, no syncope - Respiratory Respiratory: as per HPI, cough, dyspnea, dyspnea on exertion, wheezing, chest congestion - Gastrointestinal Gastrointestinal: no abdominal pain, no diarrhea, no hematemesis, no hematochezia, no melena, no nausea, no vomiting - Genitourinary Genitourinary: no change in urinary stream, no dysuria, no flank pain, no hematuria Menstruation: as per HPI, post menopausal - Musculoskeletal Musculoskeletal ROS IM: no numbness, no tingling - Integumentary Integumentary IM: no rash, no unusual bruising - Neurological Neurological ROS: no confusion, no convulsions, no focal weakness, no numbness, no tingling, no tremor(s) - Psychiatric Psychiatric: as per HPI - Endocrine Endocrine IM: as per HPI - Hematologic/Lymphatic Hematologic/Lymphatic: as per HPI, other (Dark stools over the past several weeks) - Allergic/Immunologic Allergic/Immunologic: as per HPI - Constitutional Vitals: Temp Pulse Resp BP Pulse Ox 97.7 F 62 12 148/64 97 02/16/17 15:10 02/16/17 15:10 02/16/17 15:17 02/16/17 15:10 02/16/17 15:23 General appearance: Present: cooperative, A&O X 3, morbidly obese, severe distress (Respiratory), answers questions appropriately - Head Head exam: Present: atraumatic, normocephalic - Eye Eye exam: Present: PERRL, conjuntiva pink, sclera anicteric Pupils: Present: PERRL - ENT ENT exam: Present: normal exam, normal external ear exam - Neck Neck exam general surgery: Present: normal inspection, supple, trachea midline - Respiratory Respiratory exam: Present: decreased breath sounds, respiratory distress, wheezes - Cardiovascular Cardiovascular exam: Present: RRR, +S1, +S2. Absent: diastolic murmur, gallop, rubs, systolic murmur - GI/Abdominal GI/Abdominal exam: Present: normal bowel sounds, soft, no peritoneal signs. Absent: distended, tenderness - Rectal Rectal exam: Present: deferred - Additional comments: exam deferred. - Extremities Exam Extremities exam: Present: pedal edema (Bilateral on LE), warm - Neurological Exam Neurological exam: Present: CN II-XII intact, oriented X3, no focal deficits. 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 - Diagnostic Studies Chest x-ray Additional comments: Impressions Chest X-Ray 02/16/17 15:12 IMPRESSION: Pulmonary edema D/ / Murphy Kenny MD / Murphy Kenny MD Interpreting Provider: Murphy Kenny MD
[2017-02-16] MEDS: Ipratropium/Albuterol Neb 3 ML IH SCH ×2 (22:05→23:56)
[2017-02-16 22:55] LABS: Bilirubin,Urine Negative (Negative); Blood,Urine Negative (Negative); Clarity,Urine Clear (Clear); Color,Urine Yellow (Yellow); Glucose,Urine (UA) Normal (Normal); Ketones,Urine Negative (Negative); Leukocyte Esterase,Urine Negative (Negative); Nitrite,Urine Negative (Negative); PH,Urine 5.5 pH Units (5.0-8.0); Protein,Urine 30 mg/dL (Neg-Trace); Specific Gravity,Urine 1.012 (1.010-1.025); Urobilinogen,Urine Normal (Normal)
[2017-02-16] MEDS: *HR* HYDROcodone/Acet 5/325 mg TABLET PO PRN (23:38)
[2017-02-16] MEDS: Gabapentin 100 MG CAPSULE PO SCH (23:39)
[2017-02-16] MEDS: Pantoprazole 40 MG VIAL IVP SCH (23:47)
[2017-02-17] MEDS: Insulin DETEMIR 100 UNIT/ML X5UNITS SQ SCH ×3 (00:04→21:09)
[2017-02-17] MEDS: Ipratropium/Albuterol Neb 3 ML IH SCH ×5 (04:03→20:44)
[2017-02-17 05:00] LABS: Basophils % 0.2 %; Hematocrit 26.9 % (35.3-44.9); Hemoglobin 7.1 g/dL (11.5-15.4); Immature Granulocytes % 3.7 % (0-4); Lymphocytes # 0.4 K/mcL (0.6-4.6); Lymphocytes % 3.2 %; Mean Corpuscular HGB Conc 26.4 g/dL (31.6-35.5); Mean Corpuscular Hemoglobin 19.8 pg (28.0-33.3); Mean Corpuscular Volume 75.1 fL (83.0-100.0); Mean Platelet Volume 8.7 fL (9.4-12.4); Monocytes # 0.1 K/mcL (0.0-1.3); Monocytes % 1.1 %; Neutrophils # 10.6 K/mcL (1.6-8.9); Nucleated Red Blood Cells 0.7 /100 WBC (0); Platelet Count 267 K/mcL (140-400); Red Blood Count 3.58 M/mcL (3.82-4.97); Red Cell Distribution Width 20.2 % (11.5-14.5); Segmented Neutrophils % 91.8 %
[2017-02-17 05:01] LABS: INR 1.2
[2017-02-17 05:04] LABS: Activated Partial Thrombo Time 29.2 Seconds (26.0-36.0)
[2017-02-17 05:06] LABS: Hemoglobin A1C 7.8 %
[2017-02-17 05:23] LABS: Alanine Aminotransferase 8 Units/L (0-55); Albumin 2.8 g/dL (3.5-5.0); Albumin/Globulin Ratio 0.8 (1.1-2.2); Alkaline Phosphatase 102 Units/L (38-126); Aspartate Amino Transferase 10 Units/L (5-34); BUN/Creatinine Ratio 22 (6-26); Bilirubin,Total 0.5 mg/dL (0.2-1.2); Blood Urea Nitrogen 22 mg/dL (7-20); Calcium 7.8 mg/dL (8.6-10.8); Carbon Dioxide 36 mEq/L (19-29); Chloride 88 mEq/L (98-109); Chol/HDL Ratio 2.3 (0-4.9); Cholesterol 110 mg/dL (< 200); Globulin 3.7 g/dL (2.4-3.5); Glucose 285 mg/dL (70-99); HDL Cholesterol 47 mg/dL (40-59); LDL Cholesterol,Calculated 48 mg/dL (0-99); Osmolality,Calculated 288 (280-300); Potassium 5.8 mEq/L (3.5-4.5); Sodium 132 mEq/L (136-145); Total Protein 6.5 g/dL (6.0-8.3); Triglycerides 75 mg/dL (< 150); eGFR For African Americans > 60 (> 60); eGFR For Non-African Americans 54 (> 60)
[2017-02-17 05:43] LABS: Anisocytosis 1+ (Not Present); Hypochromasia Present (Not Present); Platelet Estimate Normal (Normal); Poikilocytosis 1+ (Not Present); Polychromasia 1+ (Not Present)
[2017-02-17 06:13] LABS: Ferritin 10 ng/ml (5-204)
[2017-02-17] MEDS: Cholecalciferol (D-3) 1,000 UNIT TABLET PO SCH (08:58)
[2017-02-17] MEDS: *HR* GlipiZIDE XL (24 HR) 10 MG TABLET PO SCH (08:58)
[2017-02-17] MEDS: Pantoprazole 40 MG VIAL IVP SCH (08:58)
[2017-02-17] MEDS: Gabapentin 100 MG CAPSULE PO SCH ×3 (08:58→21:09)
[2017-02-17] MEDS: Aspirin 81 MG TAB.CHEW PO SCH (08:58)
[2017-02-17] MEDS: amLODIPine 5 MG TABLET PO SCH (08:58)
[2017-02-17] MEDS ORDERED: Furosemide 40 MG/4 ML VIAL IVP SCH (09:00)
[2017-02-17] MEDS: Insulin LISPRO 300 UNITS/3 ML VIAL SQ SCH ×3 (12:03→21:09)
[2017-02-17] MEDS: *HR* HYDROcodone/Acet 5/325 mg TABLET PO PRN (15:56)
[2017-02-17] MEDS: Furosemide 40 MG/4 ML VIAL IVP SCH (16:45)
--- NOTE | 2017-02-17 17:54 | Internal Med Progress Note ---
Date of Encounter: 02/17/17 Time of Encounter: 10:00 - Assessment and plan (1) DVT prophylaxis Current Visit: Yes Status: Acute Assessment and plan: SCD. No anticoagulation because of recent GI bleeding and a low hemoglobin level. (2) Morbid obesity Current Visit: No Status: Acute Assessment and plan: Need for lifestyle modification Qualifiers: Obesity type: due to excess calories Qualified Code(s): E66.01 - Morbid ( severe) obesity due to excess calories (3) Diabetes mellitus Current Visit: No Status: Chronic Assessment and plan: Continue basal and sliding sugar insulin coverage. Continue patient's home medication glipizide 10 mg by mouth daily. Follow-up Glu level Qualifiers: Diabetes mellitus type: type 2 Diabetes mellitus complication status: without complication Diabetes mellitus manager intermediate insulin use: with usp use Qualified Code(s): E11.9 - Type 2 diabetes mellitus without complications ; Z79.4 - USP (current) use of insulin (4) Hypothyroid Current Visit: No Status: Chronic Assessment and plan: Continue home medication Synthroid Qualifiers: Hypothyroidism type: acquired Qualified Code(s): E03.9 - Hypothyroidism, unspecified (5) Diastolic CHF Current Visit: No Status: Acute Assessment and plan: Patient has history of CHF. Echo has been done shows LVEF 60% with moderate left ventricular diastolic dysfunction. Qualifiers: Congestive heart failure chronicity: acute on chronic Qualified Code(s): I50.33 - Acute on chronic diastolic (congestive) heart failure (6) Obesity hypoventilation syndrome Current Visit: No Status: Chronic Assessment and plan: Continue oxygen and supportive treatment. BiPAP as needed and during night (7) Hypertension Current Visit: Yes Status: Chronic Assessment and plan: Continue home medications. BP is stable Qualifiers: Hypertension type: essential hypertension Qualified Code(s): I10 - Essential (primary) hypertension (8) Acute exacerbation of CHF (congestive heart failure) Current Visit: Yes Status: Acute Assessment and plan: Patient has acute onset shortness of breath with desaturation. Chest x-ray shows pulmonary edema. BNP 252 but patient is morbid obesity, the actual number should be higher. Consider CHF exacerbation. - We will continue Lasix IV to get negative balance of fluid. - Control BP. - Strict I and O - Weight patient daily - Low probability of pulmonary embolism because CHF exacerbation can explain the symptoms. Will check d-dimer to further rule out PE. If d-dimer positive, patient may need CTA. Qualifiers: Congestive heart failure type: diastolic Qualified Code(s): I50.33 - Acute on chronic diastolic (congestive) heart failure (9) Anemia Current Visit: Yes Status: Acute Assessment and plan: Patient has a recent GI bleeding. Hemoglobin is low. Patient also has severe iron deficiency, will give Iron pill supplement. We will follow up hemoglobin level, transfuse patient as needed. Qualifiers: Anemia type: iron deficiency Iron deficiency anemia type: chronic blood loss Qualified Code(s): D50.0 - Iron deficiency anemia secondary to blood loss (chronic) (10) COPD (chronic obstructive pulmonary disease) Current Visit: Yes Status: Chronic Assessment and plan: Stable. Continue home medication, Qualifiers: COPD type: emphysema Emphysema type: unspecified Qualified Code(s): J43.9 - Emphysema, unspecified (11) History of colon cancer Current Visit: No Status: Chronic Assessment and plan: Had a surgery. Patient has a recent colonoscopy in last month due to GI bleed. - Time Spent With Patient 25 - 35 minutes - Subjective Interval history: Patient is a 76-year-old female admitted for CHF exacerbation. Her past medical history is significant for diabetes, COPD, hypertension, anemia, GI bleed, hypothyroid, obesity hypoventilation syndrome, morbid obesity Patient was seen and examined. She said her shortness of breath has improved after Lasix use. Still need a higher level of oxygen. Denies chest pain. Vitals generally stable. Will try to taper down oxygen, if patient cannot maintain saturation, will put patient on BiPAP. - Constitutional Vitals: Temp Pulse Resp BP Pulse Ox 97.9 F 71 16 144/69 97 02/17/17 15:49 02/17/17 15:49 02/17/17 16:23 02/17/17 15:49 02/17/17 16:23 General appearance: Present: cooperative, mild distress, A&O X 3, morbidly obese , answers questions appropriately - Head Head exam: Present: atraumatic, normocephalic - Eye Eye exam: Present: PERRL, conjuntiva pink, sclera anicteric Pupils: Present: PERRL - Neck Neck exam general surgery: Present: supple, trachea midline. Absent: lymphadenopathy - Respiratory Respiratory exam: Present: CTAB. Absent: accessory muscle use, rales, rhonchi, wheezes - Cardiovascular Cardiovascular exam: Present: RRR, +S1, +S2. Absent: diastolic murmur, gallop, rubs, systolic murmur - GI/Abdominal GI/Abdominal exam: Present: normal bowel sounds, soft, no peritoneal signs. Absent: distended, tenderness - Extremities Exam Extremities exam: Present: warm, radial pulses palpable and symetrical. Absent : calf tenderness, cyanotic, pedal edema - Neurological Exam Neurological exam: Present: CN II-XII intact, oriented X3, no focal deficits. Absent: pronater drift, facial droop, speech deficit - Skin Skin exam: Present: dry, intact Internal Medicine: Result - Labs CBC & Chem 7: 02/17/17 04:42 02/17/17 04:42 Labs: Short CBC 02/17/17 Range/Units 04:42 WBC 11.5 H (4.3-11.1) K/mcL Hgb 7.1 L (11.5-15.4) g/dL Hct 26.9 L (35.3-44.9) % Plt Count 267 (140-400) K/mcL Neutrophils # 10.6 H (1.6-8.9) K/mcL BMP 02/17/17 04:42 Sodium 132 L Potassium 5.8 H Chloride 88 L Carbon Dioxide 36 H BUN 22 H Creatinine 1.00 Glucose 285 H Calcium 7.8 L Liver Function 02/17/17 Range/Units 04:42 Total Bilirubin 0.5 (0.2-1.2) mg/dL AST 10 (5-34) Units/L ALT 8 (0-55) Units/L Alkaline Phosphatase 102 (38-126) Units/L Albumin 2.8 L (3.5-5.0) g/dL - ABG Interpretation ABG results: PT/INR, D-dimer PT 13.0 Seconds (9.4-12.1) H 02/17/17 04:42 - EKG Interpretation EKG Interpreted by Myself: Yes EKG shows normal: sinus rhythm Rate: normal - Prior EKG Data Prior EKG available for review: yes When compared to previous EKG: there is no significant change Consult Discharge Plan - Plan Referrals: Aidan Hendrickson MD [Primary Care Provider] - 02/25/17 1:00 pm (Please follow up as schedule...)
[2017-02-17] MEDS ORDERED: (Alendronate Sodium [Fosamax] 70 MG) PO SCH (20:58)
[2017-02-18] MEDS: Ipratropium/Albuterol Neb 3 ML IH SCH ×7 (00:41→23:01)
[2017-02-18 05:00] LABS: BUN/Creatinine Ratio 29 (6-26); Blood Urea Nitrogen 29 mg/dL (7-20); Calcium 7.6 mg/dL (8.6-10.8); Chloride 89 mEq/L (98-109); Glucose 142 mg/dL (70-99); Osmolality,Calculated 290 (280-300); Sodium 136 mEq/L (136-145); eGFR For African Americans > 60 (> 60); eGFR For Non-African Americans 54 (> 60)
[2017-02-18 05:06] LABS: Potassium 4.6 mEq/L (3.5-4.5)
[2017-02-18 05:07] LABS: Carbon Dioxide 41 mEq/L (19-29)
[2017-02-18 05:14] LABS: Basophils % 0.3 %; Eosinophils # 0.1 K/mcL (0.0-0.6); Eosinophils % 0.7 %; Hematocrit 25.3 % (35.3-44.9); Hemoglobin 6.4 g/dL (11.5-15.4); Immature Granulocytes % 2.3 % (0-4); Lymphocytes # 1.4 K/mcL (0.6-4.6); Lymphocytes % 12.3 %; Mean Corpuscular HGB Conc 25.3 g/dL (31.6-35.5); Mean Corpuscular Hemoglobin 19.4 pg (28.0-33.3); Mean Corpuscular Volume 76.7 fL (83.0-100.0); Mean Platelet Volume 8.6 fL (9.4-12.4); Monocytes # 1.1 K/mcL (0.0-1.3); Monocytes % 10.3 %; Neutrophils # 8.2 K/mcL (1.6-8.9); Nucleated Red Blood Cells 0.4 /100 WBC (0); Platelet Count 261 K/mcL (140-400); Red Cell Distribution Width 20.6 % (11.5-14.5); Segmented Neutrophils % 74.1 %
[2017-02-18] MEDS: Insulin LISPRO 300 UNITS/3 ML VIAL SQ SCH ×4 (07:32→21:12)
[2017-02-18] MEDS ORDERED: 0.9 % Sodium Chloride 250 ML ONE ×2 (07:35→12:20)
[2017-02-18 07:40] LABS: Anisocytosis 2+ (Not Present); Hypochromasia Present (Not Present); Macrocytosis Present (Not Present); Microcytosis Present (Not Present); Platelet Estimate Normal (Normal); Polychromasia 1+ (Not Present)
[2017-02-18] MEDS: Insulin DETEMIR 100 UNIT/ML X5UNITS SQ SCH ×2 (08:13→21:08)
[2017-02-18] MEDS: Gabapentin 100 MG CAPSULE PO SCH ×3 (08:13→21:08)
[2017-02-18] MEDS: *HR* GlipiZIDE XL (24 HR) 10 MG TABLET PO SCH (08:13)
[2017-02-18] MEDS: Cholecalciferol (D-3) 1,000 UNIT TABLET PO SCH (08:13)
[2017-02-18] MEDS: amLODIPine 5 MG TABLET PO SCH (08:13)
[2017-02-18] MEDS: Aspirin 81 MG TAB.CHEW PO SCH (08:13)
--- NOTE | 2017-02-18 08:26 | Electrocardiograph Report ---
[place] [id number] Test Date: 2017-02-16 Pat Name: Beatriz Ponce Department: 102 Room: 2A35 Gender: F Account Director: : 1940 Requested By: Noe Schwarz Order Number: [id number] Reading MD: Naveen Pérez MD Measurements Intervals [place] Rate: 67 P: 91 MI: 211 QRS: -7 QRSD: 109 T: 46 QT: 408 QTc: 424 Interpretive Statements SINUS RHYTHM WITH FIRST DEGREE AV BLOCK LOW QRS VOLTAGE IN PRECORDIAL LEADS Poor R wave progression BASELINE ARTIFACT COMPLICATES ACCURATE INTERPRETATION Electronically Signed On 02-18-2017 8:25:03 EDT by Naveen Pérez MD
[2017-02-18] MEDS: *HR* HYDROcodone/Acet 5/325 mg TABLET PO PRN (10:59)
[2017-02-18] MEDS ORDERED: *HR* HYDROcodone/Acet 5/325 mg TABLET PO PRN ×2 (11:53→14:07)
[2017-02-18] MEDS: Furosemide 40 MG/4 ML VIAL IVP SCH ×2 (12:24→16:57)
--- NOTE | 2017-02-18 12:28 | Gastroenterology Consult Note ---
<Richard Gold - Last Filed: 02/18/17 12:25> Date of Encounter: 02/18/17 Time of Encounter: 11:10 - Assessment and plan (1) Anemia Current Visit: Yes Status: Acute Assessment and plan: Hgb 7.3 on admission and 6.4 this AM. FOBT positive 02/16. Continue to monitor CBC and transfuse PRBC as needed. Plan for EGD and colonoscopy tomorrow. Clear liquid diet today, no red or purple. NPO at midnight. If unable tolerate NuLytely please use MiraLAX prep. If not clear by 6 AM, give 2 tap water enemas. Qualifiers: Anemia type: iron deficiency Iron deficiency anemia type: chronic blood loss Qualified Code(s): D50.0 - Iron deficiency anemia secondary to blood loss (chronic) (2) Morbid obesity Current Visit: No Status: Acute Qualifiers: Obesity type: due to excess calories Qualified Code(s): E66.01 - Morbid ( severe) obesity due to excess calories (3) Acute exacerbation of CHF (congestive heart failure) Current Visit: Yes Status: Acute Assessment and plan: Management per primary team. Qualifiers: Congestive heart failure type: diastolic Qualified Code(s): I50.33 - Acute on chronic diastolic (congestive) heart failure (4) COPD (chronic obstructive pulmonary disease) Current Visit: Yes Status: Chronic Assessment and plan: Management per primary team. Qualifiers: COPD type: emphysema Emphysema type: unspecified Qualified Code(s): J43.9 - Emphysema, unspecified - Time Spent With Patient Total time spent is greater than 50% in coordination of care (as documented) at patient's floor/unit and/or counseling patient: GI History of Present Illness - Data of Consult Patient: known to practice within the last 3 years Consult date: 02/18/17 Requesting Physician: Pietro Spann MD - Consult Narrative Reason for consult: anemia History of present illness: Ms. Ponce is a 76 year old female with PMHx of arthritis, asthma, colon cancer (s/p surgery 2007), COPD, DM, HTN who presented to the ED with shortness of breath and dyspnea. We were consulted to evaluate her anemia. Pt was recently admitted with rectal bleeding and colonoscopy completed which showed stigmata of recent bleeding present in the descending colon inside one of the diverticulum clip was placed. Patient's daughters report she has had several black stools since the procedure. Fecal occult blood test was positive on admission. Hgb on admission was 7.3 and this AM Hgb 6.4. She denies fever, chills, chest pain, abdominal pain, nausea, vomiting, diarrhea. Procedures: Colonoscopy 12/26/2016 Dr. Byrne: Diverticulosis in the entire colon, stigmata of recent bleeding present in the descending colon inside one of the diverticulum clip was placed. Colonoscopy 02/11/2013 Dr. Almonte: Diverticulosis NSAIDs: Diclofenac, ASA Anticoagulation: None Past Med Surg Social Fam HX - Past Medical History Medical history: arthritis, asthma, cancer, CHF, COPD, diabetes, hyperlipidemia , hypertension, osteoporosis Psychiatric history: no psych history - Past Surgical History Surgical History: cancer surgery (Breast and colon) - Social History Smoking Status: Former smoker Smokeless Tobacco Status: No Alcohol use: none Drug use: none - Family History Mother Race: Family Member Ethnicity: Non- Living Status: Age at : 54 Cause of : LA Hx Family Cardiac Disorders: Yes (LA) Hx Family Endocrine Disorder: Yes (DM) Father Race: Family Member Ethnicity: Non- Living Status: Age at : 84 Cause of : HD Hx Family Cardiac Disorders: Yes (HTN) Hx Family Endocrine Disorder: Yes (DM) Brother Race: Family Member Ethnicity: Non- Living Status: Age at : 78 Cause of : LA Hx Family Cardiac Disorders: Yes (LA) Sister Race: Family Member Ethnicity: Non- Living Status: Still Living Hx Family Cardiac Disorders: Yes (Afib) - Gastrointestinal Gastrointestinal: Present: as per HPI - Constitutional Constitutional: as per HPI - EENT Eyes: as per HPI Ears: Present: as per HPI Nose, mouth and throat: Present: as per HPI - Cardiovascular Cardiovascular ROS: Present: as per HPI - Respiratory Respiratory IM: Present: as per HPI - Genitourinary Genitourinary: Absent: change in color, Urinary frequency - Neurological ROS Neurological GI: Present: as per HPI - Hematologic/Lymphatic Hematologic/Lymphatic pediatric: Present: as per HPI - Musculoskeletal Musculoskeletal ROS GI: Present: as per HPI - Integumentary Integumentary GI: Present: as per HPI - Psychiatric ROS Psychiatric GI: Present: as per HPI - Endocrine Endocrine IM: Present: as per HPI - Constitutional Vitals: Temp Pulse Resp BP Pulse Ox 98.2 F 72 16 146/75 99 02/18/17 10:56 02/18/17 10:56 02/18/17 10:56 02/18/17 10:56 02/18/17 10:56 General appearance: Present: cooperative, A&O X 3, no acute distress, answers questions appropriately - Head Head exam: Present: atraumatic, normocephalic - Eye Eye exam: Present: normal appearance, sclera anicteric - ENT ENT exam: Present: mucous membranes moist - Neck Neck exam general surgery: Present: normal inspection, trachea midline - Respiratory Respiratory exam: Present: CTAB. Absent: rales, rhonchi - Cardiovascular Cardiovascular exam: Present: RRR, +S1, +S2 - GI/Abdominal GI/Abdominal exam: Present: soft, no peritoneal signs. Absent: distended, firm , guarding, tenderness - Rectal Rectal exam: Present: deferred - Extremities Exam Extremities exam: Present: warm - Neurological Exam Neurological exam: Present: no focal deficits - Psychiatric Psychiatric exam: Present: normal affect, normal mood - Skin Skin exam: Present: dry, intact, normal color, warm Results - Labs CBC & Chem 7: 02/18/17 04:37 02/18/17 04:37 Labs: Last Result Calcium 7.6 mg/dL (8.6-10.8) L 02/18/17 04:37 Ferritin 10 ng/ml (5-204) 02/17/17 04:42 C-Reactive Protein 73 mg/L (Less than 5) H 02/16/17 15:47 Triglycerides 75 mg/dL (< 150) 02/17/17 04:42 Vitamin B12 670 pg/mL (213-816) 02/18/17 04:37 Folate 10.4 ng/mL (7.0-31.4) 02/17/17 04:42 Stool Occult Blood Positive (Negative) A 02/16/17 15:30 Entire Visit Hgb 6.4 g/dL (11.5-15.4) L 02/18/17 04:37 Hct 25.3 % (35.3-44.9) L 02/18/17 04:37 PT 13.0 Seconds (9.4-12.1) H 02/17/17 04:42 Ferritin 10 ng/ml (5-204) 02/17/17 04:42 Total Bilirubin 0.5 mg/dL (0.2-1.2) 02/17/17 04:42 AST 10 Units/L (5-34) 02/17/17 04:42 ALT 8 Units/L (0-55) 02/17/17 04:42 Ammonia 38 mcmol/L (18-72) 02/18/17 04:37 Folate 10.4 ng/mL (7.0-31.4) 02/17/17 04:42 - ABG ABG results: PT/INR, D-dimer PT 13.0 Seconds (9.4-12.1) H 02/17/17 04:42 D-Dimer 1237 ng/mLFEU (0-500) H 02/18/17 04:37 Consult Discharge Plan - Plan Referrals: Aidan Hendrickson MD [Primary Care Provider] - 02/25/17 1:00 pm (Please follow up as schedule...) <Inessa Byrne - Last Filed: 02/18/17 18:35> Date of Encounter: 02/18/17 Time of Encounter: 17:00 - Time Spent With Patient Total time spent is greater than 50% in coordination of care (as documented) at patient's floor/unit and/or counseling patient: GI History of Present Illness - Data of Consult Requesting Physician: Pietro Spann MD - Consult Narrative History of present illness: Ms. Ponce is a 76 year old female - Constitutional Vitals: Temp Pulse Resp BP Pulse Ox 98.0 F 79 16 123/69 92 02/18/17 18:06 02/18/17 18:06 02/18/17 18:06 02/18/17 15:55 02/18/17 18:06 Results - Labs CBC & Chem 7: 02/18/17 04:37 02/18/17 04:37 Labs: Last Result Calcium 7.6 mg/dL (8.6-10.8) L 02/18/17 04:37 Ferritin 10 ng/ml (5-204) 02/17/17 04:42 C-Reactive Protein 73 mg/L (Less than 5) H 02/16/17 15:47 Triglycerides 75 mg/dL (< 150) 02/17/17 04:42 Vitamin B12 670 pg/mL (213-816) 02/18/17 04:37 Folate 10.4 ng/mL (7.0-31.4) 02/17/17 04:42 Stool Occult Blood Positive (Negative) A 02/16/17 15:30 Entire Visit Hgb 6.4 g/dL (11.5-15.4) L 02/18/17 04:37 Hct 25.3 % (35.3-44.9) L 02/18/17 04:37 PT 13.0 Seconds (9.4-12.1) H 02/17/17 04:42 Ferritin 10 ng/ml (5-204) 02/17/17 04:42 Total Bilirubin 0.5 mg/dL (0.2-1.2) 02/17/17 04:42 AST 10 Units/L (5-34) 02/17/17 04:42 ALT 8 Units/L (0-55) 02/17/17 04:42 Ammonia 38 mcmol/L (18-72) 02/18/17 04:37 Folate 10.4 ng/mL (7.0-31.4) 02/17/17 04:42 - ABG ABG results: PT/INR, D-dimer PT 13.0 Seconds (9.4-12.1) H 02/17/17 04:42 D-Dimer 1237 ng/mLFEU (0-500) H 02/18/17 04:37 - Attending Attestation I examined this patient and my medical decision-making was reviewed with the NURSE EPIDEMIOLOGIST/PA/Advanced Practice Nurse/Resident Physician. I agree with the documented findings, disposition and treatment plan as described except to the extent set forth below.
[2017-02-18] MEDS ORDERED: traMADol 50 MG TABLET PO PRN (13:29)
[2017-02-18] MEDS: traMADol 50 MG TABLET PO PRN (15:40)
--- NOTE | 2017-02-18 16:47 | Internal Med Progress Note ---
Date of Encounter: 02/18/17 Time of Encounter: 09:00 - Assessment and plan (1) DVT prophylaxis Current Visit: Yes Status: Acute Assessment and plan: EPCD. No anticoagulation because of GI bleeding and a low hemoglobin level. (2) Morbid obesity Current Visit: No Status: Acute Assessment and plan: Needs lifestyle modification Qualifiers: Obesity type: due to excess calories Qualified Code(s): E66.01 - Morbid ( severe) obesity due to excess calories (3) Diabetes mellitus Current Visit: No Status: Chronic Assessment and plan: Continue basal and sliding sugar insulin coverage. Continue patient's home medication glipizide 10 mg by mouth daily. Follow-up Glu level Qualifiers: Diabetes mellitus type: type 2 Diabetes mellitus complication status: without complication Diabetes mellitus prison insulin use: with prison use Qualified Code(s): E11.9 - Type 2 diabetes mellitus without complications ; Z79.4 - [facility] (current) use of insulin (4) Hypothyroid Current Visit: No Status: Chronic Assessment and plan: Continue home medication Synthroid Qualifiers: Hypothyroidism type: acquired Qualified Code(s): E03.9 - Hypothyroidism, unspecified (5) Diastolic CHF Current Visit: No Status: Acute Assessment and plan: Patient has history of CHF. Echo has been done shows LVEF 60% with moderate left ventricular diastolic dysfunction. Qualifiers: Congestive heart failure chronicity: acute on chronic Qualified Code(s): I50.33 - Acute on chronic diastolic (congestive) heart failure (6) Obesity hypoventilation syndrome Current Visit: No Status: Chronic Assessment and plan: Continue oxygen and supportive treatment. BiPAP as needed and during night. Pt is not on CPAP/BiPAP at home, may need BiPAP qualification test prior to discharge. (7) Hypertension Current Visit: Yes Status: Chronic Assessment and plan: Continue home medications. BP is stable Qualifiers: Hypertension type: essential hypertension Qualified Code(s): I10 - Essential (primary) hypertension (8) Acute exacerbation of CHF (congestive heart failure) Current Visit: Yes Status: Acute Assessment and plan: Patient has acute onset shortness of breath with desaturation. Chest x-ray shows pulmonary edema. BNP 252 but patient is morbid obesity, the actual number should be higher. Consider CHF exacerbation. - We will continue Lasix IV to get a negative balance of fluid. - Control BP. - Strict I and O,, fluid restriction. - Weight patient daily - Low probability of pulmonary embolism (CHF is the first Dx, improved after diuretic use; No signs of DVT; No tachycardia; no recent immobilization or surgery; no hx of PE/DVT; no hemoptysis; has hx of colon cancer but not active now. Well's criteria score 0). However, D-Dimer positive, I discussed this result with pt and her daughter, pt has GI bleed now, on diuretics, further contrast CT will possibly damage her kidney, balance risk and benefit, will hold CTA. V/Q scan is another option but not accurate as pt has pulmonary edema. Will order US of both legs to r/o DVT since this test is noninvasive. Pt and her daughter verbalized under standing and agreement. Qualifiers: Congestive heart failure type: diastolic Qualified Code(s): I50.33 - Acute on chronic diastolic (congestive) heart failure (9) Anemia Current Visit: Yes Status: Acute Assessment and plan: Patient has a recent GI bleeding. Hemoglobin is low. Patient also has severe iron deficiency, will give Iron pill supplement. Qualifiers: Anemia type: iron deficiency Iron deficiency anemia type: chronic blood loss Qualified Code(s): D50.0 - Iron deficiency anemia secondary to blood loss (chronic) (10) COPD (chronic obstructive pulmonary disease) Current Visit: Yes Status: Chronic Assessment and plan: Stable. Continue home medication, Qualifiers: COPD type: emphysema Emphysema type: unspecified Qualified Code(s): J43.9 - Emphysema, unspecified (11) History of colon cancer Current Visit: No Status: Chronic Assessment and plan: Had a surgery. Patient has a recent colonoscopy in last month due to GI bleed. (12) GI bleed Current Visit: Yes Status: Acute Assessment and plan: Pt has positive guaiac test. Today hemoglobin further dropped to 6.4. GI consult saw patient. Plan for EGD and colonoscopy tomorrow. We will give her 2 unit PRBC transfusion today. Follow-up hemoglobin change. Closely monitor vital signs Qualifiers: GI bleed type/associated pathology: diverticulosis Qualified Code(s): K57.91 - Diverticulosis of intestine, part unspecified, without perforation or abscess with bleeding - Time Spent With Patient 25 - 35 minutes - Subjective Interval history: Patient is a 76-year-old female admitted for CHF exacerbation. Her past medical history is significant for diabetes, COPD, hypertension, anemia, GI bleed, hypothyroid, obesity hypoventilation syndrome, morbid obesity Patient was seen and examined. She said her shortness of breath has improved after Lasix use. Decreased requirement of oxygen, on 7L/min now. Denies chest pain. Good urine output. Vitals generally stable. Decreased Hgb with guaiac positive. GI consult was called, plan for EGD and colonoscopy tomorrow. - Constitutional Vitals: Temp Pulse Resp BP Pulse Ox 98.5 F 78 18 123/69 90 02/18/17 15:55 02/18/17 15:55 02/18/17 16:03 02/18/17 15:55 02/18/17 16:03 General appearance: Present: cooperative, mild distress, A&O X 3, morbidly obese , answers questions appropriately - Head Head exam: Present: atraumatic, normocephalic - Eye Eye exam: Present: PERRL, conjuntiva pink, sclera anicteric Pupils: Present: PERRL - Neck Neck exam general surgery: Present: supple, trachea midline. Absent: lymphadenopathy - Respiratory Respiratory exam: Present: CTAB. Absent: accessory muscle use, rales, rhonchi, wheezes - Cardiovascular Cardiovascular exam: Present: RRR, +S1, +S2. Absent: diastolic murmur, gallop, rubs, systolic murmur - GI/Abdominal GI/Abdominal exam: Present: distended, normal bowel sounds, soft, no peritoneal signs. Absent: tenderness - Extremities Exam Extremities exam: Present: warm, radial pulses palpable and symetrical. Absent : calf tenderness, cyanotic, pedal edema - Neurological Exam Neurological exam: Present: CN II-XII intact, oriented X3, no focal deficits. Absent: pronater drift, facial droop, speech deficit - Skin Skin exam: Present: dry, intact Internal Medicine: Result - Labs CBC & Chem 7: 02/18/17 04:37 02/18/17 04:37 Labs: Short CBC 02/18/17 Range/Units 04:37 WBC 11.0 (4.3-11.1) K/mcL Hgb 6.4 L (11.5-15.4) g/dL Hct 25.3 L (35.3-44.9) % Plt Count 261 (140-400) K/mcL Neutrophils # 8.2 (1.6-8.9) K/mcL BMP 02/18/17 04:37 Sodium 136 Potassium 4.6 H D Chloride 89 L Carbon Dioxide 41 H* BUN 29 H Creatinine 0.99 Glucose 142 H Calcium 7.6 L - ABG Interpretation ABG results: PT/INR, D-dimer PT 13.0 Seconds (9.4-12.1) H 02/17/17 04:42 D-Dimer 1237 ng/mLFEU (0-500) H 02/18/17 04:37 - VTE Documentation of Mechanical Device: Intermittent pneumatic compression device Consult Discharge Plan - Plan Referrals: Aidan Hendrickson MD [Primary Care Provider] - 02/25/17 1:00 pm (Please follow up as schedule...)
[2017-02-19] MEDS ORDERED: SODIUM CHLORIDE/NAHCO3/KCL/PEG 4,000 ML SOLN.RECON PO ONE (00:06)
[2017-02-19] MEDS: Ipratropium/Albuterol Neb 3 ML IH SCH ×6 (04:01→23:26)
[2017-02-19 06:21] LABS: Basophils % 0.2 %; Hemoglobin 7.8 g/dL (11.5-15.4); Nucleated Red Blood Cells 0.6 /100 WBC (0)
[2017-02-19 06:22] LABS: Eosinophils # 0.1 K/mcL (0.0-0.6); Eosinophils % 1.3 %; Hematocrit 28.7 % (35.3-44.9); Immature Granulocytes % 1.5 % (0-4); Lymphocytes # 1.1 K/mcL (0.6-4.6); Lymphocytes % 10.3 %; Mean Corpuscular HGB Conc 27.2 g/dL (31.6-35.5); Mean Corpuscular Hemoglobin 21.1 pg (28.0-33.3); Mean Corpuscular Volume 77.6 fL (83.0-100.0); Mean Platelet Volume 9.3 fL (9.4-12.4); Monocytes # 1.1 K/mcL (0.0-1.3); Monocytes % 9.7 %; Neutrophils # 8.4 K/mcL (1.6-8.9); Platelet Count 233 K/mcL (140-400); Red Cell Distribution Width 20.2 % (11.5-14.5)
[2017-02-19 06:32] LABS: BUN/Creatinine Ratio 34 (6-26); Blood Urea Nitrogen 31 mg/dL (7-20); Calcium 7.7 mg/dL (8.6-10.8); Chloride 89 mEq/L (98-109); Glucose 113 mg/dL (70-99); Osmolality,Calculated 293 (280-300); Potassium 4.7 mEq/L (3.5-4.5); Sodium 138 mEq/L (136-145); eGFR For African Americans > 60 (> 60); eGFR For Non-African Americans 60 (> 60)
[2017-02-19 06:37] LABS: Carbon Dioxide 43 mEq/L (19-29)
[2017-02-19 06:40] LABS: Hypochromasia Present (Not Present); Macrocytosis Present (Not Present); Platelet Estimate Normal (Normal)
[2017-02-19] MEDS: amLODIPine 5 MG TABLET PO SCH (08:06)
[2017-02-19] MEDS: Gabapentin 100 MG CAPSULE PO SCH ×2 (08:06→14:00)
[2017-02-19] MEDS: Aspirin 81 MG TAB.CHEW PO SCH (08:06)
[2017-02-19] MEDS: Cholecalciferol (D-3) 1,000 UNIT TABLET PO SCH (08:07)
[2017-02-19] MEDS: *HR* GlipiZIDE XL (24 HR) 10 MG TABLET PO SCH (08:07)
[2017-02-19] MEDS: Furosemide 40 MG/4 ML VIAL IVP SCH (08:08)
[2017-02-19] MEDS: traMADol 50 MG TABLET PO PRN (08:42)
[2017-02-19] MEDS: Insulin DETEMIR 100 UNIT/ML X5UNITS SQ SCH ×2 (08:46→22:20)
[2017-02-19] MEDS: Insulin LISPRO 300 UNITS/3 ML VIAL SQ SCH ×4 (11:45→22:20)
[2017-02-19] MEDS: *HR* HYDROcodone/Acet 5/325 mg TABLET PO PRN (13:45)
[2017-02-19 16:02] LABS: ABG HCO3 52.6 mEQ/L (21-27); ABG Oxygen Saturation 96 % (95-98); ABG PO2 86 mmHg (85-104); ABG TCO2 55.9 mEq/L (20-26)
[2017-02-19 16:05] LABS: Blood Gas FiO2 60 %
[2017-02-19 16:07] LABS: ABG PCO2 107 mmHg (35-45)
[2017-02-19] MEDS ORDERED: 0.9 % Sodium Chloride 500 ML ONE (16:17)
--- NOTE | 2017-02-19 16:38 | Internal Med Progress Note ---
Date of Encounter: 02/19/17 Time of Encounter: 16:32 - Assessment and plan (1) Acute hypercapnic respiratory failure Current Visit: Yes Status: Acute Assessment and plan: Bipap adjusted. Patient has hx of intubation about 10 years ago according to daughter. She is alert and interactive at this time. Serum bicarb elevated due to diuresis. (2) Acute exacerbation of CHF (congestive heart failure) Current Visit: Yes Status: Acute Assessment and plan: Currently has been diuresed. Will hold Lasix for now and reassess. Qualifiers: Congestive heart failure type: diastolic Qualified Code(s): I50.33 - Acute on chronic diastolic (congestive) heart failure (3) Atrial fibrillation Current Visit: Yes Status: Acute Assessment and plan: Parox rapid atrial fibrillation. Currently NSR in 60s. Card drip ordered if needed. Cannot start anticoagulation due to bleeding. Will check CTA of chest due to elevated AA gradient and tachycardia. Qualifiers: Atrial fibrillation type: paroxysmal Qualified Code(s): I48.0 - Paroxysmal atrial fibrillation (4) GI bleed Current Visit: Yes Status: Acute Assessment and plan: Pt to have endoscopy today but now on hold due to overall clinical status. Will recheck hemoglobin and transfuse more if needed. Will wait CT chest to eval status of pulmonary edema prior to transfusion. NPO for now. Qualifiers: GI bleed type/associated pathology: diverticulosis Qualified Code(s): K57.91 - Diverticulosis of intestine, part unspecified, without perforation or abscess with bleeding (5) Anemia Current Visit: Yes Status: Acute Assessment and plan: Anticipate transfusing another unit of blood tonight. Qualifiers: Anemia type: iron deficiency Iron deficiency anemia type: chronic blood loss Qualified Code(s): D50.0 - Iron deficiency anemia secondary to blood loss (chronic) (6) Diabetes mellitus Current Visit: No Status: Chronic Assessment and plan: Continue basal and sliding sugar insulin coverage. Will hold glipizide for now. Qualifiers: Diabetes mellitus type: type 2 Diabetes mellitus complication status: without complication Diabetes mellitus bed bug exterminator insulin use: with bed bug exterminator use Qualified Code(s): E11.9 - Type 2 diabetes mellitus without complications ; Z79.4 - [facility] (current) use of insulin (7) Hypothyroid Current Visit: No Status: Chronic Assessment and plan: Continue home medication Synthroid Qualifiers: Hypothyroidism type: acquired Qualified Code(s): E03.9 - Hypothyroidism, unspecified (8) Hypertension Current Visit: Yes Status: Chronic Assessment and plan: Continue home medications. BP is stable Qualifiers: Hypertension type: essential hypertension Qualified Code(s): I10 - Essential (primary) hypertension (9) Morbid obesity with BMI of 50.0-59.9, adult Current Visit: No Status: Chronic - Subjective Interval history: Ms. Ponce is currently admitted for acute exacerbation of CHF. She has been receiving IV diuresis. She is high risk due to potential for worsening respiratory status today. Ms. Ponce is alert and denies pain or dyspnea. She has had multiple episodes of parox rapid a fib today. Hemoglobin still under 8 - to have endoscopy today. ABG shows hypercarbic resp failure - bipap to be adjusted. Serum bicarb elevated due to diuresis. Daughters at bedside and updated. Venous studies of lower extremities limited but negative for DVT. Echo with diastolic dysfunction and RV OK. - Constitutional Vitals: Temp Pulse Resp BP Pulse Ox 98.0 F 60 16 148/55 97 02/19/17 16:14 02/19/17 16:14 02/19/17 16:23 02/19/17 16:23 02/19/17 16:23 General appearance: Present: cooperative, A&O X 3, morbidly obese, answers questions appropriately - Head Head exam: Present: normocephalic - Eye Eye exam: Present: EOMI, conjuntiva pink - ENT ENT exam: Present: mucous membranes dry - Respiratory Respiratory exam: Present: decreased breath sounds, CTAB. Absent: rhonchi, wheezes - Cardiovascular Cardiovascular exam: Present: irregular rhythm, tachycardia - GI/Abdominal GI/Abdominal exam: Present: soft. Absent: tenderness Additional comments: Limited due to obesity. - Extremities Exam Extremities exam: Present: pedal edema, warm. Absent: tenderness - Neurological Exam Neurological exam: Present: alert, oriented X3 - Skin Skin exam: Present: dry, warm. Absent: rash Internal Medicine: Result - Labs CBC & Chem 7: 02/19/17 06:05 02/19/17 06:05 Labs: Short CBC 02/19/17 Range/Units 06:05 WBC 10.9 (4.3-11.1) K/mcL Hgb 7.8 L (11.5-15.4) g/dL Hct 28.7 L (35.3-44.9) % Plt Count 233 (140-400) K/mcL Neutrophils # 8.4 (1.6-8.9) K/mcL BMP 02/19/17 06:05 Sodium 138 Potassium 4.7 H Chloride 89 L Carbon Dioxide 43 H* BUN 31 H Creatinine 0.91 Glucose 113 H Calcium 7.7 L - ABG Interpretation ABG results: ABG ABG pH 7.30 pH Units (7.32-7.45) L 02/19/17 15:40 ABG pCO2 107 mmHg (35-45) H* 02/19/17 15:40 ABG pO2 86 mmHg (85-104) 02/19/17 15:40 ABG O2 Saturation 96 % (95-98) 02/19/17 15:40 PT/INR, D-dimer PT 13.0 Seconds (9.4-12.1) H 02/17/17 04:42 D-Dimer 1237 ng/mLFEU (0-500) H 02/18/17 04:37 - EKG Interpretation EKG Interpreted by Myself: Yes Rate: tachycardia - EKG Data not changed from: Rhythm: A.Fib, A. flutter ST segment depression in: III - Prior EKG Data Prior EKG available for review: yes When compared to previous EKG: there are significant changes EKG comments: 02/19/17 16:40 New rapid a fib. - VTE Documentation of Mechanical Device: Intermittent pneumatic compression device Consult Discharge Plan - Plan Referrals: Aidan Hendrickson MD [Primary Care Provider] - 02/25/17 1:00 pm (Please follow up as schedule...)
[2017-02-19 16:39] LABS: Hematocrit 29.5 % (35.3-44.9); Hemoglobin 7.8 g/dL (11.5-15.4)
[2017-02-19] MEDS ORDERED: Insulin DETEMIR 100 UNIT/ML X5UNITS SQ SCH (16:51)
[2017-02-19 16:52] LABS: BUN/Creatinine Ratio 33 (6-26); Blood Urea Nitrogen 26 mg/dL (7-20); Calcium 7.7 mg/dL (8.6-10.8); Chloride 90 mEq/L (98-109); Glucose 75 mg/dL (70-99); Magnesium 1.4 mg/dL (1.6-2.6); Osmolality,Calculated 289 (280-300); Potassium 4.3 mEq/L (3.5-4.5); Sodium 138 mEq/L (136-145); eGFR For African Americans > 60 (> 60); eGFR For Non-African Americans > 60 (> 60)
[2017-02-19 16:55] LABS: Carbon Dioxide 42 mEq/L (19-29)
[2017-02-19] MEDS ORDERED: Magnesium Sulfate 2 GM in D5% in Water 100 ML IVPB ONE (16:55)
--- NOTE | 2017-02-19 17:57 | Venous Imaging Report ---
LE Venous Duplex Patient Name:Beatriz Ponce Order Number:[id number] Procedure Date:02/18/2017 Date:1940ge:76 yrs Gender:Female Height:157.48 cm / 62.00 inWeight:147.42 kg / 325.00 lb Location:[facility] Room #: 2A35 Matrix Worker:Lm Palomino Referring MD:Pietro Spann MD copy center associate:None Reading MD:Sebastien Phillips MD Primary Indications:D-Dimer positive Secondary Indications: Impressions: Bilateral lower extremity: normal superficial and deep exam. Findings Venous Duplex Results: Right: The right superficial femoral and right peroneal veins were not well visualized. Left: The left superficial femoral and left peroneal veins were not well visualized. Prior Study: No prior study available for comparison. Lower Extremity Venous Duplex Side Vein Compress Spontaneous Flow Augment Diameter (cm) Depth (cm) Right Distal Iliac Normal Yes Phasic Yes Right Common Femoral Normal Yes Phasic Yes Right Superficial Femoral Yes Yes Right Popliteal Normal Yes Phasic Yes Right Posterior Tibial Normal Yes Phasic Yes Right Peroneal Yes Yes Right Saphenofemoral [place]unction Normal Yes Phasic Yes Right Great Saphenous Normal Yes Phasic Yes Right Lesser Saphenous Normal Yes Phasic Yes Left Distal Iliac Normal Yes Phasic Yes Left Common Femoral Normal Yes Phasic Yes Left Superficial Femoral Yes Yes Left Popliteal Normal Yes Phasic Yes Left Posterior Tibial Normal Yes Phasic Yes Left Peroneal Yes Yes Left Saphenofemoral [place] Normal Yes Phasic Yes Left Great Saphenous Normal Yes Phasic Yes Left Lesser Saphenous Normal Yes Phasic Yes Updated by Sebastien Phillips MD on 02/19/2017 5:50:13 PM electronically signed on 02/19/2017 5:50:25 PM with status of Final
[2017-02-20] MEDS: Gabapentin 100 MG CAPSULE PO SCH ×4 (00:56→22:01)
[2017-02-20 01:15] LABS: ABG Base Excess 19.9 mEq/L (-2.0 to 3.0); ABG Oxygen Saturation 95 % (95-98); ABG PH 7.29 pH Units (7.32-7.45); ABG PO2 83 mmHg (85-104); ABG TCO2 53.2 mEq/L (20-26)
[2017-02-20 01:25] LABS: ABG PCO2 104 mmHg (35-45); Blood Gas FiO2 60 %; Blood Gas PEEP 6 cm H2O; Blood Gas Respiration Rate 18
[2017-02-20] MEDS: Ipratropium/Albuterol Neb 3 ML IH SCH ×6 (03:49→23:32)
[2017-02-20 05:53] LABS: Hemoglobin 7.9 g/dL (11.5-15.4)
[2017-02-20 05:54] LABS: Hematocrit 29.9 % (35.3-44.9); Mean Corpuscular HGB Conc 26.4 g/dL (31.6-35.5); Mean Corpuscular Hemoglobin 20.8 pg (28.0-33.3); Mean Corpuscular Volume 78.9 fL (83.0-100.0); Mean Platelet Volume 9.3 fL (9.4-12.4); Platelet Count 205 K/mcL (140-400); Red Blood Count 3.79 M/mcL (3.82-4.97); Red Cell Distribution Width 20.6 % (11.5-14.5)
[2017-02-20 06:00] LABS: Alanine Aminotransferase 7 Units/L (0-55); Albumin 2.7 g/dL (3.5-5.0); Albumin/Globulin Ratio 0.8 (1.1-2.2); Alkaline Phosphatase 85 Units/L (38-126); Aspartate Amino Transferase 15 Units/L (5-34); BUN/Creatinine Ratio 31 (6-26); Bilirubin,Total 0.7 mg/dL (0.2-1.2); Blood Urea Nitrogen 24 mg/dL (7-20); Calcium 8.1 mg/dL (8.6-10.8); Chloride 90 mEq/L (98-109); Globulin 3.5 g/dL (2.4-3.5); Glucose 96 mg/dL (70-99); Magnesium 1.9 mg/dL (1.6-2.6); Osmolality,Calculated 294 (280-300); Potassium 5.2 mEq/L (3.5-4.5); Sodium 140 mEq/L (136-145); Total Protein 6.2 g/dL (6.0-8.3); eGFR For African Americans > 60 (> 60); eGFR For Non-African Americans > 60 (> 60)
[2017-02-20 06:04] LABS: ABG Base Excess 23.6 mEq/L (-2.0 to 3.0); ABG HCO3 53.1 mEQ/L (21-27); ABG Oxygen Saturation 91 % (95-98); ABG PH 7.36 pH Units (7.32-7.45); ABG PO2 63 mmHg (85-104)
[2017-02-20 06:08] LABS: Carbon Dioxide 41 mEq/L (19-29)
[2017-02-20 06:09] LABS: ABG PCO2 94 mmHg (35-45); Blood Gas FiO2 40 %; Blood Gas PEEP 6 cm H2O; Blood Gas Respiration Rate 18
[2017-02-20] MEDS: Insulin LISPRO 300 UNITS/3 ML VIAL SQ SCH ×4 (07:53→22:03)
[2017-02-20] MEDS: traMADol 50 MG TABLET PO PRN (08:04)
[2017-02-20] MEDS: Cholecalciferol (D-3) 1,000 UNIT TABLET PO SCH (08:15)
[2017-02-20] MEDS: amLODIPine 5 MG TABLET PO SCH (08:15)
[2017-02-20] MEDS: Aspirin 81 MG TAB.CHEW PO SCH (08:16)
[2017-02-20] MEDS: Insulin DETEMIR 100 UNIT/ML X5UNITS SQ SCH ×2 (08:23→22:02)
[2017-02-20] MEDS ORDERED: Furosemide 20 MG/2 ML VIAL IVP ONE (12:46)
[2017-02-20] MEDS ORDERED: Vancomycin 2,000 MG in D5% in Water 250 ML IVPB SCH (13:00)
--- NOTE | 2017-02-20 13:02 | Electrocardiograph Report ---
[place] [id number] Test Date: 2017-02-19 Pat Name: Beatriz Ponce Department: 112 Room: 2A Gender: F Licensed Chemical Spray Technician: TYRESE : 1940 Requested By: Freddy Sarabia Order Number: [id number] Reading MD: Naveen Pérez MD Measurements Intervals [place] Rate: 139 P: [place]: 0 QRS: -12 QRSD: 104 T: 108 QT: 299 QTc: 380 Interpretive Statements ATRIAL FLUTTER/TACHYCARDIA WITH RAPID VENTRICULAR RESPONSE Poor R wave progression Electronically Signed On 02-20-2017 13:01:04 EDT by Naveen Pérez MD
[2017-02-20] MEDS: Piperacillin/Tazobactam 3.375 GM in D5% in Water (Mini-Bag+) 100 ML IVPB SCH ×2 (13:18→22:01)
[2017-02-20] MEDS: *HR* HYDROcodone/Acet 5/325 mg TABLET PO PRN (13:55)
[2017-02-20] MEDS: Vancomycin 2,000 MG in D5% in Water 500 ML IVPB SCH (14:19)
--- NOTE | 2017-02-20 17:02 | Internal Med Progress Note ---
Date of Encounter: 02/20/17 Time of Encounter: 12:30 - Assessment and plan (1) Acute hypercapnic respiratory failure Current Visit: Yes Status: Acute Assessment and plan: Improved this AM after being on bipap. CT did not show PE but ? pneumonia. Continue intermittent bipap and treat PNA. Transfuse as well. (2) Acute exacerbation of CHF (congestive heart failure) Current Visit: Yes Status: Acute Assessment and plan: Lasix held yesterday due to elevated bicarb on blood work. Will continue to hold at this time and reassess tomorrow. Qualifiers: Congestive heart failure type: diastolic Qualified Code(s): I50.33 - Acute on chronic diastolic (congestive) heart failure (3) Atrial fibrillation Current Visit: Yes Status: Acute Assessment and plan: Currently remains in NSR. No anticoagulation due to recent bleeding history. Qualifiers: Atrial fibrillation type: paroxysmal Qualified Code(s): I48.0 - Paroxysmal atrial fibrillation (4) GI bleed Current Visit: Yes Status: Acute Assessment and plan: H/H stable today. No further overt bleeding. Plan EGD in future when respiratory stable. Qualifiers: GI bleed type/associated pathology: diverticulosis Qualified Code(s): K57.91 - Diverticulosis of intestine, part unspecified, without perforation or abscess with bleeding (5) Anemia Current Visit: Yes Status: Acute Assessment and plan: Transfuse another unit of blood today and follow with Lasix. Qualifiers: Anemia type: iron deficiency Iron deficiency anemia type: chronic blood loss Qualified Code(s): D50.0 - Iron deficiency anemia secondary to blood loss (chronic) (6) Diabetes mellitus Current Visit: No Status: Chronic Assessment and plan: Continue basal and sliding sugar insulin coverage. Continue hold glipizide. Qualifiers: Diabetes mellitus type: type 2 Diabetes mellitus complication status: without complication Diabetes mellitus longterm insulin use: with ad terminal makeup operator use Qualified Code(s): E11.9 - Type 2 diabetes mellitus without complications ; Z79.4 - USP (current) use of insulin (7) Hypothyroid Current Visit: No Status: Chronic Assessment and plan: Continue home medication Synthroid Qualifiers: Hypothyroidism type: acquired Qualified Code(s): E03.9 - Hypothyroidism, unspecified (8) Hypertension Current Visit: Yes Status: Chronic Assessment and plan: Continue home medications. BP is stable Qualifiers: Hypertension type: essential hypertension Qualified Code(s): I10 - Essential (primary) hypertension (9) Morbid obesity with BMI of 50.0-59.9, adult Current Visit: No Status: Chronic - Subjective Interval history: Ms. Ponce is currently admitted for acute exacerbation of CHF. She had worsening hypercarbic resp failure yesterday and was on bipap all night. She remains high risk due to parox a fib, hypercarbia and anemia with GI bleed. Ms. Ponce is more alert today. She is eating lunch. No further a fib noted. No CP. Some dyspnea. No cough, fever or chills. No diarrhea. Daughters at bedside. - Constitutional Vitals: Temp Pulse Resp BP Pulse Ox 98.2 F 80 20 172/77 98 02/20/17 16:25 02/20/17 16:25 02/20/17 16:25 02/20/17 16:25 02/20/17 16:25 General appearance: Present: cooperative, A&O X 3, morbidly obese, answers questions appropriately - Head Head exam: Present: normocephalic - Eye Eye exam: Present: EOMI, conjuntiva pink - ENT ENT exam: Present: mucous membranes dry - Respiratory Respiratory exam: Present: decreased breath sounds, CTAB. Absent: rhonchi, wheezes - Cardiovascular Cardiovascular exam: Present: distant heart sounds, RRR. Absent: tachycardia - GI/Abdominal GI/Abdominal exam: Present: diminished bowel sounds, soft. Absent: tenderness - Extremities Exam Extremities exam: Present: pedal edema, warm. Absent: tenderness - Neurological Exam Neurological exam: Present: alert, oriented X3 - Skin Skin exam: Present: dry, warm. Absent: rash Internal Medicine: Result - Labs CBC & Chem 7: 02/20/17 04:51 02/20/17 04:51 Labs: Short CBC 02/20/17 Range/Units 04:51 WBC 10.8 (4.3-11.1) K/mcL Hgb 7.9 L (11.5-15.4) g/dL Hct 29.9 L (35.3-44.9) % Plt Count 205 (140-400) K/mcL BMP 02/20/17 04:51 Sodium 140 Potassium 5.2 H Chloride 90 L Carbon Dioxide 41 H* BUN 24 H Creatinine 0.77 Glucose 96 Calcium 8.1 L Cardiac Enzymes 02/19/17 Range/Units 16:20 Troponin I 0.00 (0-0.03) ng/mL Liver Function 02/20/17 Range/Units 04:51 Total Bilirubin 0.7 (0.2-1.2) mg/dL AST 15 (5-34) Units/L ALT 7 (0-55) Units/L Alkaline Phosphatase 85 (38-126) Units/L Albumin 2.7 L (3.5-5.0) g/dL - ABG Interpretation ABG results: ABG ABG pH 7.36 pH Units (7.32-7.45) 02/20/17 05:56 ABG pCO2 94 mmHg (35-45) H* 02/20/17 05:56 ABG pO2 63 mmHg (85-104) L 02/20/17 05:56 ABG O2 Saturation 91 % (95-98) L 02/20/17 05:56 PT/INR, D-dimer PT 13.0 Seconds (9.4-12.1) H 02/17/17 04:42 D-Dimer 1237 ng/mLFEU (0-500) H 02/18/17 04:37 - Impressions Impressions Abdomen/Pelvis CT 02/19/17 16:30 IMPRESSION: 1. Stable significant pulmonary artery hypertension. No acute pulmonary emboli. 2. Cardiomegaly with aortic atherosclerosis. No aortic aneurysm or dissection. 3. Mild bilateral pleural effusions with lower lobe atelectasis. Subsegmental patchy right upper lobe consolidative change which may represent mild bronchopneumonia. Mild central opacities which may represent early interstitial pulmonary edema in the setting of developing acute congestive heart failure. 4. Nonspecific mild to moderate hyperdense material within the proximal colon at the level of the entero-colonic anastomosis, this could relate to a site of GI hemorrhage or possible ingested material. There is no obstruction or perforation. Moderate left hemicolonic diverticulosis. 5. There is a 2.2 cm simple right ovarian cyst in a late postmenopausal female. This is almost certainly benign and no follow-up imaging is recommended. 6. Nonspecific diffuse abdominal and pelvic body wall subcutaneous induration. There is no evidence of a hematoma or abscess. This could relate to simple edema or possible cellulitis. D/ / 02/19/2017 19:10:44 Mandeep Evangelista MD / rhonda Interpreting Provider: Mandeep Evangelista MD Chest CTA 02/19/17 16:30 IMPRESSION: 1. Stable significant pulmonary artery hypertension. No acute pulmonary emboli. 2. Cardiomegaly with aortic atherosclerosis. No aortic aneurysm or dissection. 3. Mild bilateral pleural effusions with lower lobe atelectasis. Subsegmental patchy right upper lobe consolidative change which may represent mild bronchopneumonia. Mild central opacities which may represent early interstitial pulmonary edema in the setting of developing acute congestive heart failure. 4. Nonspecific mild to moderate hyperdense material within the proximal colon at the level of the entero-colonic anastomosis, this could relate to a site of GI hemorrhage or possible ingested material. There is no obstruction or perforation. Moderate left hemicolonic diverticulosis. 5. There is a 2.2 cm simple right ovarian cyst in a late postmenopausal female. This is almost certainly benign and no follow-up imaging is recommended. 6. Nonspecific diffuse abdominal and pelvic body wall subcutaneous induration. There is no evidence of a hematoma or abscess. This could relate to simple edema or possible cellulitis. D/ / 02/19/2017 19:10:44 Mandeep Evangelista MD / rhonda Interpreting Provider: Mandeep Evangelista MD - VTE Documentation of Mechanical Device: Intermittent pneumatic compression device Consult Discharge Plan - Plan Referrals: Aidan Hendrickson MD [Primary Care Provider] - 02/25/17 1:00 pm (Please follow up as schedule...)
[2017-02-20] MEDS ORDERED: 0.9 % Sodium Chloride 250 ML ONE (17:04)
[2017-02-21] MEDS: *HR* HYDROcodone/Acet 5/325 mg TABLET PO PRN ×2 (00:15→21:42)
[2017-02-21] MEDS: Vancomycin 2,000 MG in D5% in Water 500 ML IVPB SCH (01:53)
[2017-02-21] MEDS: Ipratropium/Albuterol Neb 3 ML IH SCH ×6 (03:23→23:12)
[2017-02-21] MEDS: Piperacillin/Tazobactam 3.375 GM in D5% in Water (Mini-Bag+) 100 ML IVPB SCH ×3 (04:25→22:26)
[2017-02-21 04:34] LABS: Hematocrit 30.3 % (35.3-44.9); Hemoglobin 8.6 g/dL (11.5-15.4); Mean Corpuscular HGB Conc 28.4 g/dL (31.6-35.5); Mean Corpuscular Hemoglobin 22.1 pg (28.0-33.3); Mean Corpuscular Volume 77.7 fL (83.0-100.0); Mean Platelet Volume 9.4 fL (9.4-12.4); Platelet Count 205 K/mcL (140-400); Red Cell Distribution Width 20.9 % (11.5-14.5)
[2017-02-21 04:57] LABS: Albumin 2.7 g/dL (3.5-5.0); Albumin/Globulin Ratio 0.8 (1.1-2.2); Alkaline Phosphatase 86 Units/L (38-126); Aspartate Amino Transferase 8 Units/L (5-34); BUN/Creatinine Ratio 25 (6-26); Bilirubin,Total 0.8 mg/dL (0.2-1.2); Blood Urea Nitrogen 21 mg/dL (7-20); Calcium 8.3 mg/dL (8.6-10.8); Chloride 88 mEq/L (98-109); Globulin 3.4 g/dL (2.4-3.5); Glucose 214 mg/dL (70-99); Magnesium 1.8 mg/dL (1.6-2.6); Osmolality,Calculated 293 (280-300); Potassium 4.3 mEq/L (3.5-4.5); Sodium 137 mEq/L (136-145); Total Protein 6.1 g/dL (6.0-8.3); eGFR For African Americans > 60 (> 60); eGFR For Non-African Americans > 60 (> 60)
[2017-02-21 05:05] LABS: Alanine Aminotransferase < 6 Units/L (0-55); Carbon Dioxide 45 mEq/L (19-29)
[2017-02-21] MEDS: Gabapentin 100 MG CAPSULE PO SCH ×3 (08:37→21:34)
[2017-02-21] MEDS: Insulin DETEMIR 100 UNIT/ML X5UNITS SQ SCH ×2 (08:37→21:35)
[2017-02-21] MEDS: Insulin LISPRO 300 UNITS/3 ML VIAL SQ SCH ×4 (08:37→21:35)
[2017-02-21] MEDS: Aspirin 81 MG TAB.CHEW PO SCH (08:38)
[2017-02-21] MEDS: amLODIPine 5 MG TABLET PO SCH (08:38)
[2017-02-21] MEDS: Cholecalciferol (D-3) 1,000 UNIT TABLET PO SCH (08:38)
[2017-02-21] MEDS ORDERED: Vancomycin 1,500 MG in D5% in Water 250 ML IVPB SCH (14:00)
--- NOTE | 2017-02-21 15:14 | Internal Med Progress Note ---
Date of Encounter: 02/21/17 Time of Encounter: 08:45 - Assessment and plan (1) Acute hypercapnic respiratory failure Current Visit: Yes Status: Acute Assessment and plan: Tolerating intermittent bipap. Needs to increase activity. Repeat CXR tomorrow. Wean support as able. (2) Acute exacerbation of CHF (congestive heart failure) Current Visit: Yes Status: Acute Assessment and plan: Serum bicarb again elevated with diuresis after blood yesterday. If pulmonary edema persists will consider albumin/lasix and/or Diamox. Qualifiers: Congestive heart failure type: diastolic Qualified Code(s): I50.33 - Acute on chronic diastolic (congestive) heart failure (3) Atrial fibrillation Current Visit: Yes Status: Acute Assessment and plan: Currently remains in NSR. No anticoagulation due to recent bleeding history. Qualifiers: Atrial fibrillation type: paroxysmal Qualified Code(s): I48.0 - Paroxysmal atrial fibrillation (4) GI bleed Current Visit: Yes Status: Acute Assessment and plan: H/H up somewhat with a unit of blood. Monitor for recurrent bleeding Qualifiers: GI bleed type/associated pathology: diverticulosis Qualified Code(s): K57.91 - Diverticulosis of intestine, part unspecified, without perforation or abscess with bleeding (5) Anemia Current Visit: Yes Status: Acute Assessment and plan: H/H slightly improved with transfusion yesterday. Qualifiers: Anemia type: iron deficiency Iron deficiency anemia type: chronic blood loss Qualified Code(s): D50.0 - Iron deficiency anemia secondary to blood loss (chronic) (6) Diabetes mellitus Current Visit: No Status: Chronic Assessment and plan: Continue basal and sliding sugar insulin coverage. Continue hold glipizide. Qualifiers: Diabetes mellitus type: type 2 Diabetes mellitus complication status: without complication Diabetes mellitus intermediate accountant insulin use: with senior care use Qualified Code(s): E11.9 - Type 2 diabetes mellitus without complications ; Z79.4 - detention (current) use of insulin (7) Hypothyroid Current Visit: No Status: Chronic Assessment and plan: Continue home medication Synthroid Qualifiers: Hypothyroidism type: acquired Qualified Code(s): E03.9 - Hypothyroidism, unspecified (8) Hypertension Current Visit: Yes Status: Chronic Assessment and plan: Continue home medications. BP is stable Qualifiers: Hypertension type: essential hypertension Qualified Code(s): I10 - Essential (primary) hypertension (9) Morbid obesity with BMI of 50.0-59.9, adult Current Visit: No Status: Chronic - Subjective Interval history: Ms. Ponce is currently admitted for acute exacerbation of CHF. She had worsening hypercarbic resp failure yesterday and was on bipap all night. She remains high risk due to parox a fib, hypercarbia and anemia with GI bleed. Ms. Ponce slept OK with bipap last night. She ate all of her breakfast. Denies pain or dyspnea at this time. No diarrhea. H/H better after transfusion. No CP. Has not been up much she says. - Constitutional Vitals: Temp Pulse Resp BP Pulse Ox 97.7 F 63 18 171/74 96 02/21/17 11:48 02/21/17 11:48 02/21/17 11:48 02/21/17 11:48 02/21/17 11:48 General appearance: Present: cooperative, A&O X 3, morbidly obese, answers questions appropriately - Head Head exam: Present: normocephalic - Eye Eye exam: Present: EOMI, conjuntiva pink - ENT ENT exam: Present: mucous membranes moist - Respiratory Respiratory exam: Present: decreased breath sounds, rhonchi. Absent: rales, wheezes - Cardiovascular Cardiovascular exam: Present: distant heart sounds, RRR. Absent: tachycardia - GI/Abdominal GI/Abdominal exam: Present: soft. Absent: tenderness - Extremities Exam Extremities exam: Present: pedal edema, warm. Absent: tenderness - Neurological Exam Neurological exam: Present: alert, oriented X3 - Skin Skin exam: Present: dry, warm. Absent: rash Internal Medicine: Result - Labs CBC & Chem 7: 02/21/17 04:06 02/21/17 04:06 Labs: Short CBC 02/21/17 Range/Units 04:06 WBC 12.3 H (4.3-11.1) K/mcL Hgb 8.6 L (11.5-15.4) g/dL Hct 30.3 L (35.3-44.9) % Plt Count 205 (140-400) K/mcL BMP 02/21/17 04:06 Sodium 137 Potassium 4.3 Chloride 88 L Carbon Dioxide 45 H* BUN 21 H Creatinine 0.84 Glucose 214 H Calcium 8.3 L Liver Function 02/21/17 Range/Units 04:06 Total Bilirubin 0.8 (0.2-1.2) mg/dL AST 8 (5-34) Units/L ALT < 6 (0-55) Units/L Alkaline Phosphatase 86 (38-126) Units/L Albumin 2.7 L (3.5-5.0) g/dL - ABG Interpretation ABG results: ABG ABG pH 7.36 pH Units (7.32-7.45) 02/20/17 05:56 ABG pCO2 94 mmHg (35-45) H* 02/20/17 05:56 ABG pO2 63 mmHg (85-104) L 02/20/17 05:56 ABG O2 Saturation 91 % (95-98) L 02/20/17 05:56 PT/INR, D-dimer PT 13.0 Seconds (9.4-12.1) H 02/17/17 04:42 D-Dimer 1237 ng/mLFEU (0-500) H 02/18/17 04:37 - VTE Documentation of Mechanical Device: Intermittent pneumatic compression device Consult Discharge Plan - Plan Referrals: Aidan Hendrickson MD [Primary Care Provider] - 02/25/17 1:00 pm (Please follow up as schedule...)
[2017-02-21] MEDS ORDERED: Furosemide 40 MG/4 ML VIAL IVP ONE (16:39)
[2017-02-22 01:08] LABS: Hematocrit 29.3 % (35.3-44.9); Hemoglobin 7.8 g/dL (11.5-15.4); Immature Platelets 2.4 % (1.1-6.1); Mean Corpuscular HGB Conc 26.6 g/dL (31.6-35.5); Mean Corpuscular Hemoglobin 21.2 pg (28.0-33.3); Mean Corpuscular Volume 79.6 fL (83.0-100.0); Mean Platelet Volume 8.9 fL (9.4-12.4); Red Blood Count 3.68 M/mcL (3.82-4.97); Red Cell Distribution Width 21.5 % (11.5-14.5)
[2017-02-22 01:20] LABS: BUN/Creatinine Ratio 21 (6-26); Blood Urea Nitrogen 19 mg/dL (7-20); Calcium 8.3 mg/dL (8.6-10.8); Chloride 87 mEq/L (98-109); Glucose 213 mg/dL (70-99); Magnesium 1.8 mg/dL (1.6-2.6); Osmolality,Calculated 293 (280-300); Potassium 3.9 mEq/L (3.5-4.5); Sodium 137 mEq/L (136-145); eGFR For African Americans > 60 (> 60); eGFR For Non-African Americans 59 (> 60)
[2017-02-22 01:21] LABS: Carbon Dioxide 44 mEq/L (19-29)
[2017-02-22] MEDS: Ipratropium/Albuterol Neb 3 ML IH SCH ×6 (03:49→23:28)
[2017-02-22] MEDS: Piperacillin/Tazobactam 3.375 GM in D5% in Water (Mini-Bag+) 100 ML IVPB SCH ×3 (04:50→21:56)
[2017-02-22] MEDS: Gabapentin 100 MG CAPSULE PO SCH ×3 (08:49→21:55)
[2017-02-22] MEDS: Cholecalciferol (D-3) 1,000 UNIT TABLET PO SCH (08:49)
[2017-02-22] MEDS: amLODIPine 5 MG TABLET PO SCH (08:49)
[2017-02-22] MEDS: Aspirin 81 MG TAB.CHEW PO SCH (08:50)
[2017-02-22] MEDS: Insulin LISPRO 300 UNITS/3 ML VIAL SQ SCH ×4 (08:50→21:57)
[2017-02-22] MEDS: Insulin DETEMIR 100 UNIT/ML X5UNITS SQ SCH ×2 (08:51→21:56)
[2017-02-22] MEDS ORDERED: Furosemide 40 MG/4 ML VIAL IVP ONE (09:41)
--- NOTE | 2017-02-22 14:27 | Internal Med Progress Note ---
Date of Encounter: 02/22/17 Time of Encounter: 07:45 - Assessment and plan (1) Acute hypercapnic respiratory failure Current Visit: Yes Status: Acute Assessment and plan: Overall appears to be slowly improving. Increase activity. Decrease time on bipap if able. (2) Acute exacerbation of CHF (congestive heart failure) Current Visit: Yes Status: Acute Assessment and plan: Will repeat albumin/Lasix today. Start Diamox as well. Qualifiers: Congestive heart failure type: diastolic Qualified Code(s): I50.33 - Acute on chronic diastolic (congestive) heart failure (3) Atrial fibrillation Current Visit: Yes Status: Acute Assessment and plan: Continues in NSR. Qualifiers: Atrial fibrillation type: paroxysmal Qualified Code(s): I48.0 - Paroxysmal atrial fibrillation (4) GI bleed Current Visit: Yes Status: Acute Assessment and plan: H/H down again. Will recheck and transfuse again if needed. When more stable respiratory will need endoscopy. Qualifiers: GI bleed type/associated pathology: diverticulosis Qualified Code(s): K57.91 - Diverticulosis of intestine, part unspecified, without perforation or abscess with bleeding (5) Anemia Current Visit: Yes Status: Acute Assessment and plan: Recheck and follow h/h Qualifiers: Anemia type: iron deficiency Iron deficiency anemia type: chronic blood loss Qualified Code(s): D50.0 - Iron deficiency anemia secondary to blood loss (chronic) (6) Diabetes mellitus Current Visit: No Status: Chronic Assessment and plan: Continue basal and sliding sugar insulin coverage. Continue hold glipizide. Qualifiers: Diabetes mellitus type: type 2 Diabetes mellitus complication status: without complication Diabetes mellitus residential insulin use: with roasterman use Qualified Code(s): E11.9 - Type 2 diabetes mellitus without complications ; Z79.4 - senior care (current) use of insulin (7) Hypothyroid Current Visit: No Status: Chronic Assessment and plan: Continue home medication Synthroid Qualifiers: Hypothyroidism type: acquired Qualified Code(s): E03.9 - Hypothyroidism, unspecified (8) Hypertension Current Visit: Yes Status: Chronic Assessment and plan: BP higher but most like related to volume increase. Continue diurese as able. Qualifiers: Hypertension type: essential hypertension Qualified Code(s): I10 - Essential (primary) hypertension (9) Morbid obesity with BMI of 50.0-59.9, adult Current Visit: No Status: Chronic - Subjective Interval history: Ms. Ponce is currently admitted for acute exacerbation of CHF. She had worsening hypercarbic resp failure yesterday and was on bipap all night. She remains high risk due to parox a fib, hypercarbia and anemia with GI bleed. Ms. Ponce appears to be more alert today. She is eating her full breakfast. No fever or chills. Still with a lot of edema though did respond to albumin/ lasix yesterday. Serum bicarb still elevated. Daughters at bedside. Was able to sit up in wheelchair yesterday. - Constitutional Vitals: Temp Pulse Resp BP Pulse Ox 97.2 F L 73 22 162/80 96 02/22/17 11:46 02/22/17 11:46 02/22/17 11:46 02/22/17 13:34 02/22/17 11:46 General appearance: Present: cooperative, A&O X 3, morbidly obese, answers questions appropriately - Head Head exam: Present: normocephalic - Eye Eye exam: Present: EOMI, conjuntiva pink - ENT ENT exam: Present: mucous membranes moist - Respiratory Respiratory exam: Present: decreased breath sounds. Absent: rales, rhonchi, wheezes - Cardiovascular Cardiovascular exam: Present: distant heart sounds, RRR - GI/Abdominal GI/Abdominal exam: Present: soft. Absent: tenderness - Extremities Exam Extremities exam: Present: warm Additional comments: Persistent edema. - Neurological Exam Neurological exam: Present: alert, oriented X3 - Skin Skin exam: Present: warm. Absent: rash Internal Medicine: Result - Labs CBC & Chem 7: 02/22/17 00:53 02/22/17 00:53 Labs: Short CBC 02/22/17 Range/Units 00:53 WBC 10.2 (4.3-11.1) K/mcL Hgb 7.8 L (11.5-15.4) g/dL Hct 29.3 L (35.3-44.9) % Plt Count 196 (140-400) K/mcL [facility] 02/22/17 00:53 Sodium 137 Potassium 3.9 Chloride 87 L Carbon Dioxide 44 H* BUN 19 Creatinine 0.92 Glucose 213 H Calcium 8.3 L - ABG Interpretation ABG results: ABG ABG pH 7.36 pH Units (7.32-7.45) 02/20/17 05:56 ABG pCO2 94 mmHg (35-45) H* 02/20/17 05:56 ABG pO2 63 mmHg (85-104) L 02/20/17 05:56 ABG O2 Saturation 91 % (95-98) L 02/20/17 05:56 PT/INR, D-dimer PT 13.0 Seconds (9.4-12.1) H 02/17/17 04:42 D-Dimer 1237 ng/mLFEU (0-500) H 02/18/17 04:37 - VTE Documentation of Mechanical Device: Intermittent pneumatic compression device Consult Discharge Plan - Plan Referrals: Aidan Hendrickson MD [Primary Care Provider] - 02/25/17 1:00 pm (Please follow up as schedule...)
[2017-02-22] MEDS ORDERED: Vancomycin 1,500 MG in D5% in Water 250 ML IVPB SCH (15:00)
[2017-02-22] MEDS: acetaZOLAMIDE 250 MG TABLET PO SCH (16:50)
[2017-02-22] MEDS: *HR* HYDROcodone/Acet 5/325 mg TABLET PO PRN (18:00)
[2017-02-22] MEDS: traMADol 50 MG TABLET PO PRN (21:55)
[2017-02-23] MEDS: *HR* HYDROcodone/Acet 5/325 mg TABLET PO PRN ×5 (01:55→18:37)
[2017-02-23] MEDS: Ipratropium/Albuterol Neb 3 ML IH SCH ×6 (04:05→23:15)
[2017-02-23] MEDS: Piperacillin/Tazobactam 3.375 GM in D5% in Water (Mini-Bag+) 100 ML IVPB SCH ×3 (04:11→22:13)
[2017-02-23 04:49] LABS: Hemoglobin 7.9 g/dL (11.5-15.4)
[2017-02-23 04:50] LABS: Hematocrit 29.2 % (35.3-44.9); Mean Corpuscular HGB Conc 27.1 g/dL (31.6-35.5); Mean Corpuscular Hemoglobin 21.9 pg (28.0-33.3); Mean Corpuscular Volume 80.9 fL (83.0-100.0); Mean Platelet Volume 9.1 fL (9.4-12.4); Platelet Count 176 K/mcL (140-400); Red Blood Count 3.61 M/mcL (3.82-4.97); Red Cell Distribution Width 22.1 % (11.5-14.5)
[2017-02-23 05:04] LABS: BUN/Creatinine Ratio 21 (6-26); Blood Urea Nitrogen 21 mg/dL (7-20); Calcium 8.6 mg/dL (8.6-10.8); Chloride 88 mEq/L (98-109); Glucose 163 mg/dL (70-99); Osmolality,Calculated 299 (280-300); Sodium 141 mEq/L (136-145); eGFR For African Americans > 60 (> 60); eGFR For Non-African Americans 54 (> 60)
[2017-02-23 05:13] LABS: Carbon Dioxide 48 mEq/L (19-29)
[2017-02-23] MEDS: Cholecalciferol (D-3) 1,000 UNIT TABLET PO SCH (08:01)
[2017-02-23] MEDS: amLODIPine 5 MG TABLET PO SCH (08:01)
[2017-02-23] MEDS: acetaZOLAMIDE 250 MG TABLET PO SCH (08:01)
[2017-02-23] MEDS: Gabapentin 100 MG CAPSULE PO SCH ×3 (08:01→21:21)
[2017-02-23] MEDS: Aspirin 81 MG TAB.CHEW PO SCH (08:01)
[2017-02-23] MEDS: Insulin DETEMIR 100 UNIT/ML X5UNITS SQ SCH ×2 (08:02→21:20)
[2017-02-23] MEDS: Insulin LISPRO 300 UNITS/3 ML VIAL SQ SCH ×4 (08:02→21:21)
[2017-02-23] MEDS ORDERED: Furosemide 40 MG/4 ML VIAL IVP ONE (10:20)
--- NOTE | 2017-02-23 11:15 | Electrocardiograph Report ---
[place] [id number] Test Date: 2017-02-20 Pat Name: Beatriz Ponce Department: 112 Room: 2A48 Gender: F [employer]: [facility] : 1940 Requested By: Freddy Sarabia Order Number: [id number] Reading MD: Naveen Pérez MD Measurements Intervals Drury Rate: 68 P: 44 OR: 180 QRS: -7 QRSD: 100 T: 65 QT: 381 QTc: 399 Interpretive Statements SINUS RHYTHM LOW QRS VOLTAGE IN PRECORDIAL LEADS ANTEROSEPTAL MYOCARDIAL INFARCTION, OF INDETERMINATE AGE Electronically Signed On 02-23-2017 11:13:25 EDT by Naveen Pérez MD
--- NOTE | 2017-02-23 19:30 | Internal Med Progress Note ---
Date of Encounter: 02/23/17 Time of Encounter: 10:00 - Assessment and plan (1) Acute hypercapnic respiratory failure Current Visit: Yes Status: Acute Assessment and plan: Overall appears to be slowly improving. Tolerating increased activity. Bipap to be ordered at discharge. (2) Acute exacerbation of CHF (congestive heart failure) Current Visit: Yes Status: Acute Assessment and plan: Will repeat albumin/Lasix today. Diuresing. Qualifiers: Congestive heart failure type: diastolic Qualified Code(s): I50.33 - Acute on chronic diastolic (congestive) heart failure (3) Atrial fibrillation Current Visit: Yes Status: Acute Assessment and plan: Continues in NSR. Qualifiers: Atrial fibrillation type: paroxysmal Qualified Code(s): I48.0 - Paroxysmal atrial fibrillation (4) GI bleed Current Visit: Yes Status: Acute Assessment and plan: H/H about the same. Plan recheck tomorrow. Most likely will need EGD before discharge. Qualifiers: GI bleed type/associated pathology: diverticulosis Qualified Code(s): K57.91 - Diverticulosis of intestine, part unspecified, without perforation or abscess with bleeding (5) Anemia Current Visit: Yes Status: Acute Assessment and plan: Recheck and follow h/h Qualifiers: Anemia type: iron deficiency Iron deficiency anemia type: chronic blood loss Qualified Code(s): D50.0 - Iron deficiency anemia secondary to blood loss (chronic) (6) Diabetes mellitus Current Visit: No Status: Chronic Assessment and plan: Continue basal and sliding sugar insulin coverage. Continue hold glipizide. Qualifiers: Diabetes mellitus type: type 2 Diabetes mellitus complication status: without complication Diabetes mellitus senior care insulin use: with senior care use Qualified Code(s): E11.9 - Type 2 diabetes mellitus without complications ; Z79.4 - longterm (current) use of insulin (7) Hypothyroid Current Visit: No Status: Chronic Assessment and plan: Continue home medication Synthroid Qualifiers: Hypothyroidism type: acquired Qualified Code(s): E03.9 - Hypothyroidism, unspecified (8) Hypertension Current Visit: Yes Status: Chronic Assessment and plan: Continue diurese as able. Qualifiers: Hypertension type: essential hypertension Qualified Code(s): I10 - Essential (primary) hypertension (9) Morbid obesity with BMI of 50.0-59.9, adult Current Visit: No Status: Chronic - Subjective Interval history: Ms. Kris is currently admitted for acute exacerbation of CHF. She had worsening hypercarbic resp failure yesterday and was on bipap all night. She remains high risk due to parox a fib, hypercarbia and anemia with GI bleed. Ms. Ponce is sitting up in chair. She has just finished breakfast. No fever or chills. Serum bicarb remains elevated. No GI symptoms. H/H about the same. Daughters at bedside. - Constitutional Vitals: Temp Pulse Resp BP Pulse Ox 97.6 F 53 11 152/66 93 02/23/17 15:24 02/23/17 19:08 02/23/17 19:08 02/23/17 19:08 02/23/17 19:08 General appearance: Present: cooperative, A&O X 3, morbidly obese, answers questions appropriately - Head Head exam: Present: normocephalic - Eye Eye exam: Present: EOMI, conjuntiva pink - ENT ENT exam: Present: mucous membranes moist - Respiratory Respiratory exam: Present: decreased breath sounds. Absent: rales, rhonchi, wheezes - Cardiovascular Cardiovascular exam: Present: RRR. Absent: tachycardia - GI/Abdominal GI/Abdominal exam: Present: soft. Absent: tenderness - Extremities Exam Extremities exam: Present: warm. Absent: tenderness Additional comments: Less edema. - Neurological Exam Neurological exam: Present: alert, oriented X3, no focal deficits - Skin Skin exam: Present: warm. Absent: rash Internal Medicine: Result - Labs CBC & Chem 7: 02/23/17 04:30 02/23/17 04:30 Labs: Short CBC 02/23/17 Range/Units 04:30 WBC 8.8 (4.3-11.1) K/mcL Hgb 7.9 L (11.5-15.4) g/dL Hct 29.2 L (35.3-44.9) % Plt Count 176 (140-400) K/mcL BMP 02/23/17 04:30 Sodium 141 Potassium 4.0 Chloride 88 L Carbon Dioxide 48 H* BUN 21 H Creatinine 0.99 Glucose 163 H Calcium 8.6 - ABG Interpretation ABG results: ABG ABG pH 7.36 pH Units (7.32-7.45) 02/20/17 05:56 ABG pCO2 94 mmHg (35-45) H* 02/20/17 05:56 ABG pO2 63 mmHg (85-104) L 02/20/17 05:56 ABG O2 Saturation 91 % (95-98) L 02/20/17 05:56 PT/INR, D-dimer PT 13.0 Seconds (9.4-12.1) H 02/17/17 04:42 D-Dimer 1237 ng/mLFEU (0-500) H 02/18/17 04:37 - VTE Documentation of Mechanical Device: Intermittent pneumatic compression device Consult Discharge Plan - Plan Referrals: Aidan Hendrickson MD [Primary Care Provider] - 02/25/17 1:00 pm (Please follow up as schedule...)
[2017-02-24] MEDS: Ipratropium/Albuterol Neb 3 ML IH SCH ×6 (04:16→23:42)
[2017-02-24 04:38] LABS: Hemoglobin 7.8 g/dL (11.5-15.4)
[2017-02-24 04:39] LABS: Hematocrit 30.1 % (35.3-44.9); Mean Corpuscular HGB Conc 25.9 g/dL (31.6-35.5); Mean Corpuscular Hemoglobin 21.4 pg (28.0-33.3); Mean Corpuscular Volume 82.7 fL (83.0-100.0); Mean Platelet Volume 9.2 fL (9.4-12.4); Platelet Count 164 K/mcL (140-400); Red Blood Count 3.64 M/mcL (3.82-4.97); Red Cell Distribution Width 21.7 % (11.5-14.5)
[2017-02-24 04:57] LABS: Calcium 8.7 mg/dL (8.6-10.8); Potassium 4.1 mEq/L (3.5-4.5)
[2017-02-24] MEDS: Piperacillin/Tazobactam 3.375 GM in D5% in Water (Mini-Bag+) 100 ML IVPB SCH ×2 (06:43→15:13)
[2017-02-24] MEDS: acetaZOLAMIDE 250 MG TABLET PO SCH (08:31)
[2017-02-24] MEDS: Aspirin 81 MG TAB.CHEW PO SCH (08:31)
[2017-02-24] MEDS: amLODIPine 5 MG TABLET PO SCH (08:32)
[2017-02-24] MEDS: Cholecalciferol (D-3) 1,000 UNIT TABLET PO SCH (08:32)
[2017-02-24] MEDS: Gabapentin 100 MG CAPSULE PO SCH ×3 (08:33→21:02)
[2017-02-24] MEDS: Insulin LISPRO 300 UNITS/3 ML VIAL SQ SCH ×4 (08:33→21:08)
[2017-02-24] MEDS: Insulin DETEMIR 100 UNIT/ML X5UNITS SQ SCH ×2 (08:42→21:07)
[2017-02-24] MEDS ORDERED: Furosemide 20 MG/2 ML VIAL IVP ONE (11:38)
--- NOTE | 2017-02-24 11:57 | Internal Med Progress Note ---
Date of Encounter: 02/24/17 Time of Encounter: 09:00 - Assessment and plan (1) Acute hypercapnic respiratory failure Current Visit: Yes Status: Acute Assessment and plan: Remains dyspneic at rest. Intravascularly dry currently. Continue intermittent bipap. Check ABG most likely in AM. (2) Acute exacerbation of CHF (congestive heart failure) Current Visit: Yes Status: Acute Assessment and plan: Intravascularly dry . Will continue Diamox but give small amount of fluid today. Qualifiers: Congestive heart failure type: diastolic Qualified Code(s): I50.33 - Acute on chronic diastolic (congestive) heart failure (3) Atrial fibrillation Current Visit: Yes Status: Acute Assessment and plan: Continues in NSR. No further episodes noted. Qualifiers: Atrial fibrillation type: paroxysmal Qualified Code(s): I48.0 - Paroxysmal atrial fibrillation (4) GI bleed Current Visit: Yes Status: Acute Assessment and plan: H/H stable but still below 8 with dyspnea. Will give another unit of blood today. NPO after midnight tonight. Possible EGD if able to do. Qualifiers: GI bleed type/associated pathology: diverticulosis Qualified Code(s): K57.91 - Diverticulosis of intestine, part unspecified, without perforation or abscess with bleeding (5) Anemia Current Visit: Yes Status: Acute Assessment and plan: Transfuse another unit PRBCs today. Qualifiers: Anemia type: iron deficiency Iron deficiency anemia type: chronic blood loss Qualified Code(s): D50.0 - Iron deficiency anemia secondary to blood loss (chronic) (6) Diabetes mellitus Current Visit: No Status: Chronic Assessment and plan: Continue basal and sliding sugar insulin coverage. Continue hold glipizide. 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 Qualifiers: Hypertension type: essential hypertension Qualified Code(s): I10 - Essential (primary) hypertension (9) Morbid obesity with BMI of 50.0-59.9, adult Current Visit: No Status: Chronic - Subjective Interval history: Ms. Ponce is currently admitted for acute exacerbation of CHF. She had worsening hypercarbic resp failure yesterday and was on bipap all night. She remains high risk due to parox a fib, hypercarbia and anemia with GI bleed. Ms. Ponce is up to bedside commode. Less edematous today but still dyspneic with movement. Somnolent when up as well. Denies abdominal pain. No vipin GI bleeding. H/H about same but still less than 8. No further a fib. No anticoagulation due to GI bleed. Daughters at bedside and questions answered. - Constitutional Vitals: Temp Pulse Resp BP Pulse Ox 97.6 F 71 18 140/74 96 02/24/17 11:07 02/24/17 11:07 02/24/17 11:07 02/24/17 11:07 02/24/17 11:07 General appearance: Present: cooperative, A&O X 3, morbidly obese, answers questions appropriately - Head Head exam: Present: normocephalic - Eye Eye exam: Present: EOMI, conjuntiva pink - ENT ENT exam: Present: mucous membranes dry - Respiratory Respiratory exam: Present: decreased breath sounds. Absent: rales, rhonchi, wheezes Additional comments: Mild dyspnea at rest. - Cardiovascular Cardiovascular exam: Present: distant heart sounds, RRR. Absent: tachycardia - GI/Abdominal GI/Abdominal exam: Present: soft. Absent: tenderness - Extremities Exam Extremities exam: Present: warm. Absent: tenderness Additional comments: Less edema of lower extremities. - Neurological Exam Neurological exam: Present: alert, oriented X3 - Skin Skin exam: Present: warm. Absent: rash Internal Medicine: Result - Labs CBC & Chem 7: 02/24/17 04:00 02/24/17 04:00 Labs: Short CBC 02/24/17 Range/Units 04:00 WBC 10.1 (4.3-11.1) K/mcL Hgb 7.8 L (11.5-15.4) g/dL Hct 30.1 L (35.3-44.9) % Plt Count 164 (140-400) K/mcL BMP 02/24/17 04:00 Sodium 140 Potassium 4.1 Chloride 86 L Carbon Dioxide 47 H* BUN 29 H Creatinine 1.20 H Glucose 170 H Calcium 8.7 - ABG Interpretation ABG results: ABG ABG pH 7.36 pH Units (7.32-7.45) 02/20/17 05:56 ABG pCO2 94 mmHg (35-45) H* 02/20/17 05:56 ABG pO2 63 mmHg (85-104) L 02/20/17 05:56 ABG O2 Saturation 91 % (95-98) L 02/20/17 05:56 PT/INR, D-dimer PT 13.0 Seconds (9.4-12.1) H 02/17/17 04:42 D-Dimer 1237 ng/mLFEU (0-500) H 02/18/17 04:37 - VTE Documentation of Mechanical Device: Intermittent pneumatic compression device Consult Discharge Plan - Plan Referrals: Aidan Hendrickson MD [Primary Care Provider] - 02/25/17 1:00 pm (Please follow up as schedule...)
[2017-02-24] MEDS ORDERED: 0.9 % Sodium Chloride 1,000 ML IVC SCH (12:00)
[2017-02-24] MEDS: *HR* HYDROcodone/Acet 5/325 mg TABLET PO PRN ×2 (16:05→21:02)
[2017-02-24] MEDS ORDERED: 0.9 % Sodium Chloride 250 ML ONE (17:29)
[2017-02-25] MEDS: Piperacillin/Tazobactam 3.375 GM in D5% in Water (Mini-Bag+) 100 ML IVPB SCH ×2 (00:02→08:51)
[2017-02-25] MEDS: Ipratropium/Albuterol Neb 3 ML IH SCH ×3 (04:26→12:43)
[2017-02-25 06:12] LABS: BUN/Creatinine Ratio 31 (6-26); Blood Urea Nitrogen 32 mg/dL (7-20); Calcium 8.5 mg/dL (8.6-10.8); Chloride 88 mEq/L (98-109); Glucose 181 mg/dL (70-99); Osmolality,Calculated 297 (280-300); Potassium 4.1 mEq/L (3.5-4.5); Sodium 138 mEq/L (136-145); eGFR For African Americans > 60 (> 60); eGFR For Non-African Americans 52 (> 60)
[2017-02-25 06:13] LABS: Hemoglobin 7.9 g/dL (11.5-15.4)
[2017-02-25 06:14] LABS: Hematocrit 28.4 % (35.3-44.9); Mean Corpuscular HGB Conc 27.8 g/dL (31.6-35.5); Mean Corpuscular Volume 82.6 fL (83.0-100.0); Mean Platelet Volume 10.2 fL (9.4-12.4); Platelet Count 139 K/mcL (140-400); Red Blood Count 3.44 M/mcL (3.82-4.97); Red Cell Distribution Width 22.5 % (11.5-14.5)
[2017-02-25 06:15] LABS: Carbon Dioxide 45 mEq/L (19-29)
[2017-02-25] MEDS: Aspirin 81 MG TAB.CHEW PO SCH (08:38)
[2017-02-25] MEDS: acetaZOLAMIDE 250 MG TABLET PO SCH (08:39)
[2017-02-25] MEDS: Gabapentin 100 MG CAPSULE PO SCH (08:40)
[2017-02-25] MEDS: Cholecalciferol (D-3) 1,000 UNIT TABLET PO SCH (08:40)
[2017-02-25] MEDS: amLODIPine 5 MG TABLET PO SCH (08:40)
[2017-02-25] MEDS: Insulin DETEMIR 100 UNIT/ML X5UNITS SQ SCH (08:41)
[2017-02-25] MEDS: Insulin LISPRO 300 UNITS/3 ML VIAL SQ SCH ×2 (08:46→12:23)
--- NOTE | 2017-02-25 09:26 | Pulmonology Consult Note ---
Date of Encounter: 02/25/17 Time of Encounter: 09:25 Assessment and Plan (1) Acute and chronic respiratory failure ([id number]) Current Visit: No Status: Chronic This is a 76-year-old woman with a history of advanced respiratory failure secondary to COPD heart failure with preserved ejection fraction obstructive sleep apnea obesity hypoventilation syndrome. She has very poor performance status and extremely limited functional capacity. She is admitted with acute on chronic respiratory failure. Possibly mediated by pneumonia. It is my impression that overall prognosis is extremely poor I believe that there are some modifications current management that could help with overall feelings of subjective shortness of breath however I doubt that there will be a market improvement in overall pulmonary prognosis. I explained to the family no uncertain terms that options are very limited and that we have to have realistic expectations for improvement of situation that at baseline is extremely poor. Recs: 1. Acute hypoxic hypercapnic respiratory failure with worsening metabolic alkalosis: -Cont NIV at all times currently 18/6 dropped to 40% fio2 to keep sat around 90% I reinforced with the family that goal is 89-92% regardless of amount of oxygen needed to achieve this. -Favor continue diuresis and expect BUN and HCO#- to increase -Agressive replacement of K+ and Cl- -Cont Diamox 250mg TID 2. Pneumonia: -Appears adequately treated, micro cultures negative thus far; stop ABx after 7 days 3. HFpEF: Continues to be volume overloaded. ECHO with significant Pulm HTN or RV dysfucntion. Has uncontrolled HTN at present -titrate howard blocking agent -consider adding long acting nitrate to regimen -Cont diuresis goal net 0.5-1L (-) -daily chemistry with mg2+ 4. NAVYA/OHS: Continue NIV overnight at current settings. Repeat AGB in AM will titrate accordingly -Outpatinet PSG to be done on BiPAP and Patient to be discharged with BIPAP 5. COPD with acute exacerbation. -Schedule Symbicort 160/4.5 2 Puff BID -ON balance given dispnea favor 40mg IV solumedrol BID can likely transition to enteral prednisone in next 24-48 hours 6. Chronic Anemia likely s/t GI source. -Clearly High risk for need for intubation. -would cont to transfuse for hgb <7 -readdress possible endocospy when respiratory status more stable (if possible) 7. VTE prophylaxis Cont Chemical DVT prophylaxis if no other contraindication 8. Goals of Care DNRA/DNI appropirate in this patient I spoke with the patient and her family for over 20 minutes regarding current situation and to have realistic expectations recommend formal palliative care consult for ongoing goals of care discussion. Could also consider long-acting low-dose morphine for dyspnea I would avoid all other [employer]ER depressants as able Thank you for this consultation pulmonary we will continue to follow call with any questions Qualifiers: Respiratory failure complication: unspecified whether with hypoxia or hypercapnia Qualified Code(s): J96.20 - Acute and chronic respiratory failure , unspecified whether with hypoxia or hypercapnia (2) Pneumonia Current Visit: Yes Status: Acute Qualifiers: Pneumonia type: due to unspecified organism Laterality: unspecified laterality Lung location: unspecified part of lung Qualified Code(s): J18.9 - Pneumonia, unspecified organism (3) Morbid obesity Current Visit: No Status: Acute Qualifiers: Obesity type: due to excess calories Qualified Code(s): E66.01 - Morbid ( severe) obesity due to excess calories (4) COPD exacerbation Current Visit: No Status: Resolved (5) Venous thromboembolism (VTE) prophylaxis provided within 24 hours of arrival Current Visit: No Status: Acute (6) Diastolic CHF Current Visit: No Status: Acute Qualifiers: Congestive heart failure chronicity: acute on chronic Qualified Code(s): I50.33 - Acute on chronic diastolic (congestive) heart failure (7) Obesity hypoventilation syndrome Current Visit: No Status: Chronic (8) Counseling regarding advanced care planning and goals of care Current Visit: No Status: Acute (9) Morbid obesity with BMI of 50.0-59.9, adult Current Visit: No Status: Chronic History of Present Illness Consult date: 02/25/17 Requesting physician: Freddy Sarabia Reason for consult: dyspnea Chief complaint: Dyspnea History of present illness: This is a 76-year-old woman with a history of chronic hypoxic hypercarbic respiratory failure COPD obstructive sleep apnea obesity hypoventilation syndrome CHF who presented with worsening dyspnea. On admission had CTA performed which is notable for possible acute pneumonia and increased vascular could suggestion consistent with volume overload/pulmonary edema since admission she has been treated with a course of antimicrobials or pneumonia and has undergone diuresis however patient remains significantly short of breath and dependent upon noninvasive ventilation for work of breathing. She joined by her daughters at bedside who are advocating on her behalf. At baseline patient has a very poor performance status and she is relegated to sitting most of the day her only ambulation is to and from the bedside commode. She is compliant with continuous positive airway pressure at night for obstructive sleep apnea however she has not undergone a titration study in many years. Over the last 2 years she has been seen at [facility] in addition other health system such as [facility] most recently back in December there has been concern for chronic lower GI bleed with chronic microcytic anemia. She has undergone transfusions here GIs been consulted but understandably has been hesitant to perform endoscopy given tenuous respiratory status. Notably one of the daughters is very concerned about the amount of oxygen patient is receiving she was told at an outside hospital that giving too much oxygen could worsen her respiratory status. So at home regardless of oxygen saturation she is kept between 3 and 4 L. Per chart she will on arrival was apparently saturating in the mid 70s. Past Med Surg Social Fam HX - Past Medical History Medical history: arthritis, asthma, cancer, CHF, COPD, diabetes, hyperlipidemia , hypertension, osteoporosis Psychiatric history: no psych history - Past Surgical History Surgical History: cancer surgery (Breast and colon) - Social History Smoking Status: Former smoker Smokeless Tobacco Status: No Alcohol use: none Drug use: none - Family History Mother Race: Family Member Ethnicity: Non- Living Status: Age at : 54 Cause of : VA Hx Family Cardiac Disorders: Yes (VA) Hx Family Endocrine Disorder: Yes (DM) Father Race: Family Member Ethnicity: Non- Living Status: Age at : 84 Cause of : HD Hx Family Cardiac Disorders: Yes (HTN) Hx Family Endocrine Disorder: Yes (DM) Brother Race: Family Member Ethnicity: Non- Living Status: Age at : 78 Cause of : VA Hx Family Cardiac Disorders: Yes (VA) Sister Race: Family Member Ethnicity: Non- Living Status: Still Living Hx Family Cardiac Disorders: Yes (Afib) Medications and Allergies Gabapentin [Neurontin] 400 mg PO TID 04/13/15 [History] Amlodipine [Norvasc] 5 mg PO DAILY 30 Days 04/20/15 [Rx] Aspirin 81 mg PO DAILY 30 Days 04/20/15 [Rx] Budesonide/Formoterol 160/4.5 [Symbicort] 2 puff IH BIDR #1 inhaler 04/20/15 [Rx ] Carvedilol [Coreg] 3.125 mg PO BIDWM 30 Days 04/20/15 [Rx] Insulin Glargine,Hum.rec.anlog [Lantus Solostar] 40 unit SQ BID 30 Days [Rx] Ipratropium/Albuterol Neb [Duoneb] 3 ml IH [id number] 14 Days 04/20/15 [Rx] Sitagliptin Phos/Metformin HCl [Janumet 50-1,000 mg Tablet] 1 each PO DAILY 30 Days 04/20/15 [Rx] Albuterol Neb [Proventil Neb] 2.5 mg IH TID 12/24/16 [History] Albuterol Sulfate [Proair Hfa] 2 puff IH Q4H PRN 12/24/16 [History] Alendronate Sodium [Fosamax] 70 mg PO TU 12/24/16 [History] Atorvastatin Calcium [Lipitor] 20 mg PO DAILY 12/24/16 [History] Cholecalciferol (Vitamin D3) [Vitamin D3] 400 unit PO DAILY 12/24/16 [History] Diclofenac Sodium [Voltaren] 1 appl TP QID PRN 12/24/16 [History] GlipiZIDE XL (24 HR) [Glucotrol XL] 10 mg PO 0800 12/24/16 [History] Insulin Aspart Prot/Insuln Asp [Novolog Mix 70-30 Flexpen Syrn] 10 unit SQ TID PRN 12/24/16 [History] Losartan [Cozaar] 25 mg PO DAILY 12/24/16 [History] Montelukast [Singulair] 10 mg PO DAILY 12/24/16 [History] Nystatin/Triamcinolone CRM [Mycolog] 1 appl TP BID 12/24/16 [History] Oxygen 2 - 3 l NS CONT 12/24/16 [History] Ranitidine HCl [Heartburn Relief] 150 mg PO BID 12/24/16 [History] Tramadol HCl [Ultram] 50 mg PO BID PRN 12/24/16 [History] Calcium Polycarbophil [Fibercon] 1,250 mg PO DAILY #60 tablet 12/26/16 [Rx] Docusate [Colace] 200 mg PO HS PRN 02/16/17 [History] Furosemide [Lasix] 40 - 80 mg PO DAILY 02/16/17 [History] Levothyroxine [Synthroid] 175 mcg PO 0630 02/16/17 [History] Oxycodone HCl/Acetaminophen [Percocet 5-325 mg Tablet] 1 tab PO BID 02/16/17 [ History] Allergies sulfamethoxazole [From Bactrim] Allergy (Verified 02/16/17 19:58) Rash trimethoprim [From Bactrim] Allergy (Verified 02/16/17 19:58) Rash Sulfa (Sulfonamide Antibiotics) Adverse Reaction (Verified 02/16/17 19:58) Rash All Systems: A 10-system review of systems was performed and is negative for pertinent findings except as documented above in the HPI. Physical Examination Vital Signs: Vital Signs, Last 4 Hours Temp Pulse Resp BP Pulse Ox 02/25/17 08:30 20 96 02/25/17 07:39 98.3 F 73 20 149/67 97 General appearance: appears uncomfortable Eyes: nonicteric ENT: other (BiPAP noted no significant air leak) Neck: supple Effort: very labored Auscultation: bilateral: diminished breath sounds, rales Cardiovascular: regular rate and rhythm Gastrointestinal: normoactive bowel sounds, soft Integumentary: other (Scattered areas of ecchymoses noted and generally thin skin) Extremities: edema (1+ lower extremity edema bilaterally) other (She is awake and alertshe is at the hospital knows the month she is somnolent occasionally but is easily arousable) anxious Results - Laboratory Findings CBC and BMP: 02/25/17 04:55 02/25/17 04:55 ABG ABG pH 7.36 pH Units (7.32-7.45) 02/20/17 05:56 ABG pCO2 94 mmHg (35-45) H* 02/20/17 05:56 ABG pO2 63 mmHg (85-104) L 02/20/17 05:56 ABG O2 Saturation 91 % (95-98) L 02/20/17 05:56 PT/INR, D-dimer PT 13.0 Seconds (9.4-12.1) H 02/17/17 04:42 D-Dimer 1237 ng/mLFEU (0-500) H 02/18/17 04:37 Abnormal lab findings: Abnormal lab results RBC 3.44 M/mcL (3.82-4.97) L 02/25/17 04:55 Hgb 7.9 g/dL (11.5-15.4) L 02/25/17 04:55 Hct 28.4 % (35.3-44.9) L 02/25/17 04:55 MCV 82.6 fL (83.0-100.0) L 02/25/17 04:55 MCH 23.0 pg (28.0-33.3) L 02/25/17 04:55 MCHC 27.8 g/dL (31.6-35.5) L 02/25/17 04:55 RDW 22.5 % (11.5-14.5) H 02/25/17 04:55 Plt Count 139 K/mcL (140-400) L 02/25/17 04:55 Nucleated RBCs/100 WBC 0.6 /100 WBC (0) H 02/19/17 06:05 Polychromasia 1+ (Not Present) A 02/18/17 04:37 Hypochromasia Present (Not Present) A 02/19/17 06:05 Poikilocytosis 1+ (Not Present) A 02/17/17 04:42 Anisocytosis 2+ (Not Present) A 02/18/17 04:37 Microcytosis Present (Not Present) A 02/18/17 04:37 Macrocytosis Present (Not Present) A 02/19/17 06:05 PT 13.0 Seconds (9.4-12.1) H 02/17/17 04:42 D-Dimer 1237 ng/mLFEU (0-500) H 02/18/17 04:37 ABG pCO2 94 mmHg (35-45) H* 02/20/17 05:56 ABG pO2 63 mmHg (85-104) L 02/20/17 05:56 ABG HCO3 53.1 mEQ/L (21-27) H 02/20/17 05:56 ABG Total CO2 56.0 mEq/L (20-26) H 02/20/17 05:56 ABG O2 Saturation 91 % (95-98) L 02/20/17 05:56 ABG Base Excess 23.6 mEq/L (-2.0 to 3.0) H 02/20/17 05:56 Chloride 88 mEq/L (98-109) L 02/25/17 04:55 Carbon Dioxide 45 mEq/L (19-29) H* 02/25/17 04:55 BUN 32 mg/dL (7-20) H 02/25/17 04:55 Est GFR (Non-Af Amer) 52 (> 60) L 02/25/17 04:55 BUN/Creatinine Ratio 31 (6-26) H 02/25/17 04:55 Glucose 181 mg/dL (70-99) H 02/25/17 04:55 POC Glucose 259 (58-89) H 02/24/17 16:01 Hemoglobin A1c 7.8 % (-5.6) H 02/17/17 04:42 Calcium 8.5 mg/dL (8.6-10.8) L 02/25/17 04:55 C-Reactive Protein 73 mg/L (Less than 5) H 02/16/17 15:47 B-Natriuretic Peptide 252 pg/mL (0-100) H 02/16/17 15:47 Albumin 2.7 g/dL (3.5-5.0) L 02/21/17 04:06 Albumin/Globulin Ratio 0.8 (1.1-2.2) L 02/21/17 04:06 Urine Protein 30 mg/dL (Neg-Trace) H 02/16/17 22:47 Stool Occult Blood Positive (Negative) A 02/16/17 15:30 Vancomycin Trough 24.7 mcg/mL (10-20) H* 02/22/17 00:53 - Diagnostic Findings Chest x-ray: report reviewed, image reviewed CT scan - chest: report reviewed, image reviewed - Clinical Findings Intake & Output: Intake & Output 02/24/17 02/25/17 02/25/17 23:59 07:59 15:59 Intake Total 920 / 920 100 / 100 Output Total 750 / 750 Balance 920 / 920 -650 / -650 Consult Discharge Plan - Plan Referrals: Aidan Hendrickson MD [Primary Care Provider] - 03/04/17 1:45 pm (Please follow up as schedule...)
[2017-02-25 12:24] VITALS: BP 175/79
[2017-02-25] MEDS ORDERED: Isosorbide MONOnitrate (24 HR) 30 MG TAB.ER.24H PO SCH (12:30)
[2017-02-25] MEDS ORDERED: Furosemide 20 MG/2 ML VIAL IVP SCH (12:30)
[2017-02-25] MEDS ORDERED: Budesonide/Formoterol 160/4.5 MDI IH SCH (12:45)
--- NOTE | 2017-02-25 14:13 | Discharge Summary ---
Date of Encounter: 02/25/17 Time of Encounter: 12:45 - Discharge Diagnosis (1) Acute hypercapnic respiratory failure Priority: Primary Status: Acute (2) Acute exacerbation of CHF (congestive heart failure) Priority: Primary Status: Acute Qualifiers: Congestive heart failure type: diastolic Qualified Code(s): I50.33 - Acute on chronic diastolic (congestive) heart failure (3) Atrial fibrillation Priority: Secondary Status: Acute Qualifiers: Atrial fibrillation type: paroxysmal Qualified Code(s): I48.0 - Paroxysmal atrial fibrillation (4) GI bleed Priority: Secondary Status: Acute Qualifiers: GI bleed type/associated pathology: diverticulosis Qualified Code(s): K57.91 - Diverticulosis of intestine, part unspecified, without perforation or abscess with bleeding (5) Anemia Priority: Secondary Status: Acute Qualifiers: Anemia type: iron deficiency Iron deficiency anemia type: chronic blood loss Qualified Code(s): D50.0 - Iron deficiency anemia secondary to blood loss (chronic) (6) Diabetes mellitus Priority: Secondary Status: Chronic Qualifiers: Diabetes mellitus type: type 2 Diabetes mellitus complication status: without complication Diabetes mellitus [employer] insulin use: with skilled nursing use Qualified Code(s): E11.9 - Type 2 diabetes mellitus without complications ; Z79.4 - detention (current) use of insulin (7) Hypothyroid Priority: Secondary Status: Chronic Qualifiers: Hypothyroidism type: acquired Qualified Code(s): E03.9 - Hypothyroidism, unspecified (8) Hypertension Priority: Secondary Status: Chronic Qualifiers: Hypertension type: essential hypertension Qualified Code(s): I10 - Essential (primary) hypertension (9) Morbid obesity with BMI of 50.0-59.9, adult Priority: Secondary Status: Chronic - Discharge Medications Home Medications: Gabapentin [Neurontin] 400 mg PO TID 04/13/15 [History] Amlodipine [Norvasc] 5 mg PO DAILY 30 Days 04/20/15 [Rx] Aspirin 81 mg PO DAILY 30 Days 04/20/15 [Rx] Budesonide/Formoterol 160/4.5 [Symbicort] 2 puff IH BIDR #1 inhaler 04/20/15 [Rx ] Carvedilol [Coreg] 3.125 mg PO BIDWM 30 Days 04/20/15 [Rx] Ipratropium/Albuterol Neb [Duoneb] 3 ml IH [id number] 14 Days 04/20/15 [Rx] Albuterol Neb [Proventil Neb] 2.5 mg IH TID 12/24/16 [History] Albuterol Sulfate [Proair Hfa] 2 puff IH Q4H PRN 12/24/16 [History] Atorvastatin Calcium [Lipitor] 20 mg PO DAILY 12/24/16 [History] Cholecalciferol (Vitamin D3) [Vitamin D3] 400 unit PO DAILY 12/24/16 [History] Montelukast [Singulair] 10 mg PO DAILY 12/24/16 [History] Oxygen 2 - 3 l NS CONT 12/24/16 [History] Tramadol HCl [Ultram] 50 mg PO BID PRN 12/24/16 [History] Calcium Polycarbophil [Fibercon] 1,250 mg PO DAILY #60 tablet 12/26/16 [Rx] Docusate [Colace] 200 mg PO HS PRN 02/16/17 [History] Levothyroxine [Synthroid] 175 mcg PO 0630 02/16/17 [History] Ferrous Sulfate 325 mg PO DAILY@0800 tablet 02/25/17 [Rx] Furosemide [Lasix] 40 mg IVP BIDDIURETIC vial 02/25/17 [Rx] Insulin DETEMIR [Levemir] 25 unit SQ 0900,2100 [id number] 02/25/17 [Rx] Isosorbide MONOnitrate (24 HR) [Imdur] 30 mg PO DAILY tab.er.24h 02/25/17 [Rx] Nitroglycerin 0.4 mg SL Q5MIN PRN #0 tab.subl 02/25/17 [Rx] Omeprazole [PriLOSEC] 40 mg PO DAILY@0630 capsule. 02/25/17 [Rx] acetaZOLAMIDE [Diamox] 250 mg PO TID tablet 02/25/17 [Rx] methylPREDNISolone [Solu-MEDROL] 40 mg IVP Q12HR vial 02/25/17 [Rx] Allergies/Adverse Reactions: Allergies sulfamethoxazole [From Bactrim] Allergy (Verified 02/16/17 19:58) Rash trimethoprim [From Bactrim] Allergy (Verified 02/16/17 19:58) Rash Sulfa (Sulfonamide Antibiotics) Adverse Reaction (Verified 02/16/17 19:58) Rash Date of admission: 02/17/17 00:37 Primary care physician: Aidan Hendrickson MD Consults: 02/17/17 09:18 Consult to [employer] [CONS] Routine Reason for SW Consult: Patient has [facility] 02/17/17 09:50 Consult to Occupational Therapy [CONS] Routine Comment: Evaluate, develop and implement POC Reason for Consult: Difficult for self management Consult to Physical Therapy [CONS] Routine Comment: Evaluate, develop and implement POC Reason for Consult: Difficult self management 02/18/17 07:15 Consult to Gastroenterology [CONS] Routine Consulting Provider: Gastroenterology July Reason for Consult: Low HgB, Hx of GI bleed had recent colonoscopy. Call Completed: No 02/23/17 19:33 Consult to Speech Therapy [CONS] Routine Comment: Evaluate, develop and implement POC Reason for Consult: Cough with eating. ? dysphagia Call Completed: No 02/25/17 09:26 Consult to Pulmonology [CONS] Routine Consulting Provider: [facility] [place] Reason for Consult: Persistent dyspnea despite treatment Time Notified: 09:25 Call Completed: Yes Discharging clinician: Freddy Sarabia Anticipated date of discharge: 02/25/17 - Patient Status Disposition: Transfer Short-Term Hosp Condition: Undetermined Functional capacity at discharge: wheelchair bound Overall status at discharge: patient is not back to baseline - Discharge Instructions Follow Up With: Aidan Hendrickson MD [Primary Care Provider] - 03/04/17 1:45 pm (Please follow up as schedule...) - Diet and Activity Activity: wear oxygen at all times Diet: diabetic diet Hospital course: Ms. Ponce is a 76 year old female with hx of oxygen dependent COPD brought to ED with increased dyspnea. Pt apparently was admitted to [facility] in the last couple months with similar symptoms. She also was admitted at [facility] recently for LGI and had clipping of diverticular area vessel. She was evaluated in ED and subsequently admitted. Ms Ponce was admitted to [facility]. She was felt to be in exacerbation of diastolic heart failure and started on IV diuresis. Her hemoglobin dropped and she was evaluated by GI and arrangements made for endoscopy. These were not done was she was not stable from a respiratory standpoint. Following prep she also had an episode of parox a fib which spontaneously resolved. She is not on anticoagulant due to bleeding. Diuresis was continued and her serum bicarb elevated. Her creatinine increased as well and she was placed on Diamox and less Lasix. Her hemoglobin was still low and she received a total of 4 units of PRBCs. She continued to have issues with respiratory distress requiring bipap intermittently. She also completed a course of IV abx as well. On 02/25 she was back on bipap. Her hemoglobin was 7.9 despite transfusion. She was seen by pulmonary and meds adjusted. She appears to have significant R heart failure/pulmonary hypertension as a large component of her condition. Discussion on condition has been pursued with family. She remains Full Code. Family wished additional evaluation at [facility] for any further treatment options. At this time patient will be transferred in stable condition. - Time Spent with Patient Total time spent providing and/or coordinating discharge services: 45min - Constitutional Vitals: Temp Pulse Resp BP Pulse Ox 97.9 F 73 23 175/79 93 02/25/17 12:23 02/25/17 12:23 02/25/17 12:57 02/25/17 12:23 02/25/17 12:57 General appearance: Present: cooperative, A&O X 3, morbidly obese, answers questions appropriately - Head Head exam: Present: normocephalic - Eye Eye exam: Present: conjuntiva pink - ENT ENT exam: Present: mucous membranes dry - Respiratory Respiratory exam: Present: decreased breath sounds, rhonchi - Cardiovascular Cardiovascular exam: Present: distant heart sounds, RRR - Extremities Exam Extremities exam: Present: pedal edema, warm - Neurological Exam Neurological exam: Present: alert, oriented X3 - Skin Skin exam: Present: warm. Absent: rash - VTE Documentation of Mechanical Device: Intermittent pneumatic compression device
[2017-02-25] MEDS ORDERED: Aminoglycoside Consult 1 EACH MC ONE (14:14)
[2017-02-25] MEDS ORDERED: acetaZOLAMIDE 250 MG TABLET PO SCH (15:00)
[2017-02-25] MEDS ORDERED: MethylPREDNISolone 40 MG/ML VIAL IVP SCH (18:00)
== END 2017-02-25 14:15 | disposition short-term general hospital (02) | DRG 291 ==
LOC: EMEROO 15:08 → 2ANU 15:08 → SUATTDRO 02-17 00:37 → 2ANU 02-22 09:03
PROVIDERS: ADMIT Nurse Practitioner Family; ATTEND Internal Medicine

== ENCOUNTER 2017-03-14 01:54 | Observation (INO) ==
--- NOTE | 2017-03-14 02:14 | Emergency Department Note ---
Disposition Clinical Impression: Hypoxia Anemia Qualifiers: Anemia type: unspecified type Qualified Code(s): D64.9 - Anemia, unspecified Obese Qualifiers: Obesity type: unspecified obesity type Obesity classification: unspecified obesity classification Serious obesity comorbidity presence: unspecified whether serious comorbidity present Qualified Code(s): E66.9 - Obesity, unspecified Disposition: Admitted As Inpatient Condition: Fair General Adult HPI - General Chief complaint: ED General Medical Stated complaint: Low O2 sat on C-PAP Time Seen by Provider: 03/14/17 01:59 Source: patient, EMS Mode of arrival: EMS Limitations: no limitations Nursing Notes Reviewed: Yes Vital Signs Reviewed: Yes - History of Present Illness HPI Narrative: 76-year-old female presents for evaluation of dyspnea. Patient states that she has been chronically dyspneic for months. Patient presented from [facility] after Elder was concern that the patient's oxygen saturation was 80% on BiPAP. EMS arrived and stated that the patient's machine and appeared to be hooked up appropriately. Patient is typically oxygen dependent on 2-3 L. EMS state that they took her off the BiPAP and used a mask of 8 L and the patient's oxygen improved. Patient's currently on 2 L nasal cannula. Patient denies any fevers or cough. Denies any chest pain. States that she was recently admitted and transferred [facility]. Patient was just discharged from [facility] and went to [facility]. Family states that if the patient does need admission they would like the patient to be transferred to [facility]. Pain Scale: 0 - Related Data Home Medications Medication Instructions Recorded Confirmed Gabapentin [Neurontin] 400 mg PO TID 04/13/15 02/16/17 Albuterol Neb [Proventil Neb] 2.5 mg IH TID 12/24/16 02/16/17 Albuterol Sulfate [Proair Hfa] 2 puff IH Q4H PRN 12/24/16 02/16/17 Atorvastatin Calcium [Lipitor] 20 mg PO DAILY 12/24/16 02/16/17 Cholecalciferol (Vitamin D3) 400 unit PO DAILY 12/24/16 02/16/17 [Vitamin D3] Montelukast [Singulair] 10 mg PO DAILY 12/24/16 02/16/17 Oxygen 2 - 3 l NS CONT 12/24/16 02/16/17 Tramadol HCl [Ultram] 50 mg PO BID PRN 12/24/16 02/16/17 Docusate [Colace] 200 mg PO HS PRN 02/16/17 02/16/17 Levothyroxine [Synthroid] 175 mcg PO 0630 02/16/17 02/16/17 Previous Rx's Medication Instructions Recorded Amlodipine [Norvasc] 5 mg PO DAILY 30 Days 04/20/15 Aspirin 81 mg PO DAILY 30 Days 04/20/15 Budesonide/Formoterol 160/4.5 2 puff IH BIDR #1 inhaler 04/20/15 [Symbicort] Carvedilol [Coreg] 3.125 mg PO BIDWM 30 Days 04/20/15 Ipratropium/Albuterol Neb [Duoneb] 3 ml IH [id number] 14 Days 04/20/15 Calcium Polycarbophil [Fibercon] 1,250 mg PO DAILY #60 tablet 12/26/16 Ferrous Sulfate 325 mg PO DAILY@0800 tablet 02/25/17 Furosemide [Lasix] 40 mg IVP BIDDIURETIC vial 02/25/17 Insulin DETEMIR [Levemir] 25 unit SQ 0900,2100 [id number] 02/25/17 Isosorbide MONOnitrate (24 HR) 30 mg PO DAILY tab.er.24h 02/25/17 [Imdur] Nitroglycerin 0.4 mg SL Q5MIN PRN #0 tab.subl 02/25/17 Omeprazole [PriLOSEC] 40 mg PO DAILY@0630 capsule. 02/25/17 acetaZOLAMIDE [Diamox] 250 mg PO TID tablet 02/25/17 methylPREDNISolone [Solu-MEDROL] 40 mg IVP Q12HR vial 02/25/17 Allergies Allergy/AdvReac Type Severity Reaction Status Date / Time sulfamethoxazole Allergy Rash Verified 02/16/17 19:58 [From Bactrim] trimethoprim [From Bactrim] Allergy Rash Verified 02/16/17 19:58 Sulfa (Sulfonamide AdvReac Rash Verified 02/16/17 19:58 Antibiotics) All systems ED: reviewed and negative except as stated. Constitutional: Reports: as per HPI. Denies: fever Eyes: Reports: as per HPI ENT ED: Reports: as per HPI Cardiovascular: Reports: as per HPI. Denies: chest pain Respiratory: Reports: as per HPI, dyspnea Gastrointestinal: Reports: as per HPI Genitourinary: Reports: as per HPI Musculoskeletal: Reports: as per HPI Integumentary: Reports: as per HPI Neurological: Reports: as per HPI Psychiatric: Reports: as per HPI Endocrine: Reports: as per HPI Hematological/Lymphatic: Reports: as per HPI Past Medical History - Past Medical History Medical history: Reports: arthritis, asthma, cancer, CHF, COPD, diabetes, hyperlipidemia, hypertension, osteoporosis Surgical history: Reports: cancer surgery (Breast and colon) Psychiatric history: Reports: no psych history - Social History Smoking Status: Former smoker Smokeless Tobacco Status: No Alcohol use: Reports: none Drug use: Reports: none Physical Exam - General Limitations: no limitations General appearance: alert, in no apparent distress, obese (Morbidly obese) - Head Head exam: atraumatic, normocephalic, normal inspection - Eye Eye exam: Present: normal appearance, EOMI - ENT ENT exam: normal exam - Neck Neck exam: Present: normal inspection - Chest Chest inspection: Present: normal inspection - Respiratory Respiratory exam: Present: other (Diffusely decreased lung sounds secondary to body habitus) - Cardiovascular Cardiovascular exam: Present: regular rate - Abdominal Exam Abdominal exam: Present: soft, Non-Tender - Extremities Exam Extremities exam: Present: normal inspection, pedal edema (3+ bilateral pitting edema) - Neurological Exam Neurological exam: Present: alert - Skin Skin exam: Present: warm, dry, intact, normal color Course Course Narrative: Patient seen and examined. Patient is morbidly obese female who appears in no acute distress. Patient currently on 2 L nasal cannula satting 92%. Patient denies any chest pain. Patient has a chronic dyspnea. Family at bedside provided additional history stating that the patient was at [facility]. Family states that they would like the patient transferred if she requires admission. - Reevaluation(s) Reevaluation #1: Patient seen and examined. Patient is no acute distress. Patient resting comfortably. Family would like reassurance that she does have appropriate CPAP at [facility]. Concern that the patient's machine is malfunctioning. Patient's family would like short-term admission to this hospital to ensure that her CPAP is in working order. The patient would also need social services technician and disposition planning. Time: 04:51 Vital Signs Temperature 98.7 F 03/14/17 01:58 Pulse Rate 67 03/14/17 01:58 Respiratory Rate 17 03/14/17 01:58 Blood Pressure 158/53 03/14/17 01:58 O2 Sat by Pulse Oximetry 92 03/14/17 01:58 Temperature 98.4 F 03/14/17 06:59 Pulse Rate 62 03/14/17 06:59 Respiratory Rate 18 03/14/17 06:59 Blood Pressure 134/57 03/14/17 06:59 O2 Sat by Pulse Oximetry 96 03/14/17 06:59 Oxygen Delivery Oxygen Delivery Room Air Medical Decision Making - MDM Narrative Medical decision making narrative: 76 year old female with a history of type II respiratory failure presents for evaluation of hypoxia from [facility]. Patient is on BiPAP at there was question whether BiPAP was working properly. EMS thought the BiPAP was hooked up. Patient was noted to be hypoxic with room air sat in the 80s. Patient improved with nasal cannula. Patient is alert and oriented. Patient denies any fevers or cough. Patient's chest x-ray shows atelectasis versus pneumonia. Will favor atelectasis at this point as the patient clinically does not have pneumonia. Patient EKG shows no acute changes. Negative troponin. Patient is chronically anemic. Patient's lab work shows chronic kidney disease. Family would like assurance that the patient's CPAP machine is working appropriately at [facility]. Given the hypoxic episode prior to the patient would need admission and the patient family states that they would like to be admitted at [facility] following the ER evaluation and assistance with discharge planning for the patient's CPAP machine. - Lab Data Lab results reviewed: Yes I reviewed the patient's lab results. Result diagrams: 03/14/17 02:29 03/14/17 02:29 Lab Results 03/14/17 03/14/17 03/14/17 Range/Units 02:29 02:29 02:29 WBC 7.8 (4.3-11.1) K/mcL RBC 3.59 L (3.82-4.97) M/mcL Hgb 8.5 L (11.5-15.4) g/dL Hct 29.5 L (35.3-44.9) % MCV 82.2 L (83.0-100.0) fL MCH 23.7 L (28.0-33.3) pg MCHC 28.8 L (31.6-35.5) g/dL RDW 24.8 H (11.5-14.5) % Plt Count 196 (140-400) K/mcL MPV 9.9 (9.4-12.4) fL Immature Gran % 0.4 (0-4) % Seg Neutrophils % 73.5 % Lymphocytes % 13.4 % Monocytes % 7.2 % Eosinophils % 5.1 % Basophils % 0.4 % Neutrophils # 5.7 (1.6-8.9) K/mcL Lymphocytes # 1.1 (0.6-4.6) K/mcL Monocytes # 0.6 (0.0-1.3) K/mcL Eosinophils # 0.4 (0.0-0.6) K/mcL Basophils # 0.0 (0.0-0.2) K/mcL Platelet Estimate Normal (Normal) Hypochromasia Present A (Not Present) Poikilocytosis 1+ A (Not Present) Anisocytosis 1+ A (Not Present) Sodium 142 (136-145) mEq/L Potassium 3.8 (3.5-4.5) mEq/L Chloride 87 L (98-109) mEq/L Carbon Dioxide 48 H* (19-29) mEq/L BUN 21 H (7-20) mg/dL Creatinine 1.20 H (0.57-1.11) mg/dL Est GFR ( Amer) 53 L (> 60) Est GFR (Non-Af Amer) 44 L (> 60) BUN/Creatinine Ratio 18 (6-26) Glucose 194 H (70-99) mg/dL Calculated Osmolality 302 H (280-300) Calcium 8.4 L (8.6-10.8) mg/dL Troponin I 0.00 (0-0.03) ng/mL B-Natriuretic Peptide (0-100) pg/mL 03/14/17 Range/Units 02:29 WBC (4.3-11.1) K/mcL RBC (3.82-4.97) M/mcL Hgb (11.5-15.4) g/dL Hct (35.3-44.9) % MCV (83.0-100.0) fL MCH (28.0-33.3) pg MCHC (31.6-35.5) g/dL RDW (11.5-14.5) % Plt Count (140-400) K/mcL MPV (9.4-12.4) fL Immature Gran % (0-4) % Seg Neutrophils % % Lymphocytes % % Monocytes % % Eosinophils % % Basophils % % Neutrophils # (1.6-8.9) K/mcL Lymphocytes # (0.6-4.6) K/mcL Monocytes # (0.0-1.3) K/mcL Eosinophils # (0.0-0.6) K/mcL Basophils # (0.0-0.2) K/mcL Platelet Estimate (Normal) Hypochromasia (Not Present) Poikilocytosis (Not Present) Anisocytosis (Not Present) Sodium (136-145) mEq/L Potassium (3.5-4.5) mEq/L Chloride (98-109) mEq/L Carbon Dioxide (19-29) mEq/L BUN (7-20) mg/dL Creatinine (0.57-1.11) mg/dL Est GFR ( Amer) (> 60) Est GFR (Non-Af Amer) (> 60) BUN/Creatinine Ratio (6-26) Glucose (70-99) mg/dL Calculated Osmolality (280-300) Calcium (8.6-10.8) mg/dL Troponin I (0-0.03) ng/mL B-Natriuretic Peptide 138 H (0-100) pg/mL - Radiology Data Radiology results reviewed: Yes I reviewed the patient's radiology results. Chest X-Ray 03/14/17 02:09 IMPRESSION: 1. Left lower lobe atelectasis or pneumonia. 2. Suspected pulmonary edema. D/ / Sorin Sierra MD / Sorin Sierra MD Interpreting Provider: Sorin Sierra MD - EKG Data EKG #1 EKG attestation: Yes I reviewed and interpreted this EKG. EKG shows normal: sinus rhythm Rate: normal Rhythm: NSR [place]/QRS: left axis deviation Q waves: v1, v2 T wave inversions noted in: v1 Interpretation: no acute changes S.B.A.R. - S.B.A.R. Situation: Demographics Background: Presenting Complaint Assessment: Vital Signs, Course and respsone to treatment, Pertinant Lab Results Recommendation: Barrier(s) to disposition, Recommendation based on pending studies, treatments, or consults [place] Report Given to: Dr. Dillan Granados Repor Time: 05:34 Attestation Statement - Attestation Attestation: I, Anupam Garcia MD, personally evaluated this patient and discussed their management with the resident physician. I reviewed the resident's note and agree with the documented findings, medical decision making, and plan of care. Patient is a 76-year-old morbidly obese female who was just released from [facility] yesterday to a rehabilitation facility. She uses CPAP at night. This evening at the rehabilitation facility with her CPAP on she developed shortness of breath and low oxygen saturations. EMS took her off the CPAP and placed her on oxygen and her saturations improved. No increased cough or fever. No chest pain. On examination patient is a morbidly obese elderly female in no acute distress. She is alert and oriented 3. There is no cyanosis or diaphoresis. Chest is nontender to palpation. Breath sounds are clear and equal bilaterally. Heart regular rate and rhythm. Labs reviewed and abnormalities appear to be baseline for patient. No acute changes on EKG. Chest x-ray shows left basilar atelectasis versus pneumonia and suspected pulmonary edema. The hospitalist, Dr. Grimaldo, was consulted and accepted admission of the patient.
[2017-03-14 03:02] LABS: Basophils % 0.4 %; Eosinophils # 0.4 K/mcL (0.0-0.6); Eosinophils % 5.1 %; Hematocrit 29.5 % (35.3-44.9); Hemoglobin 8.5 g/dL (11.5-15.4); Immature Granulocytes % 0.4 % (0-4); Lymphocytes % 13.4 %; Mean Corpuscular HGB Conc 28.8 g/dL (31.6-35.5); Mean Corpuscular Hemoglobin 23.7 pg (28.0-33.3); Mean Corpuscular Volume 82.2 fL (83.0-100.0); Mean Platelet Volume 9.9 fL (9.4-12.4); Monocytes # 0.6 K/mcL (0.0-1.3); Monocytes % 7.2 %; Neutrophils # 5.7 K/mcL (1.6-8.9); Platelet Count 196 K/mcL (140-400); Red Blood Count 3.59 M/mcL (3.82-4.97); Red Cell Distribution Width 24.8 % (11.5-14.5); Segmented Neutrophils % 73.5 %
[2017-03-14 03:07] LABS: Lymphocytes # 1.1 K/mcL (0.6-4.6)
[2017-03-14 03:18] LABS: Calcium 8.4 mg/dL (8.6-10.8); Potassium 3.8 mEq/L (3.5-4.5)
[2017-03-14 03:23] LABS: Platelet Estimate Normal (Normal)
[2017-03-14 03:24] LABS: Anisocytosis 1+ (Not Present); Hypochromasia Present (Not Present); Poikilocytosis 1+ (Not Present)
[2017-03-14] MEDS ORDERED: Naloxone 0.4 MG/ML INJ IVP PRN (08:09)
[2017-03-14] MEDS ORDERED: Acetaminophen 325 MG TABLET PO PRN (08:09)
--- NOTE | 2017-03-14 08:28 | Internal Med History&Physical ---
Date of Encounter: 03/14/17 Time of Encounter: 07:30 Assessment and Plan (1) Morbid obesity Current visit: No Status: Acute Need for lifestyle modification. (2) Diabetes mellitus Current visit: No Status: Chronic Will cover patient with basal and sliding scale insulin Qualifiers: Diabetes mellitus type: type 2 Diabetes mellitus complication status: without complication Diabetes mellitus penitentiary insulin use: with clinic cma use Qualified Code(s): E11.9 - Type 2 diabetes mellitus without complications ; Z79.4 - alf (current) use of insulin (3) Hypothyroid Current visit: No Status: Chronic Continue home medication Qualifiers: Hypothyroidism type: acquired Qualified Code(s): E03.9 - Hypothyroidism, unspecified (4) Diastolic CHF Current visit: No Status: Acute Stable. Apears euvolemic. Continue by mouth Lasix, beta kathy, and losartan Qualifiers: Congestive heart failure chronicity: acute on chronic Qualified Code(s): I50.33 - Acute on chronic diastolic (congestive) heart failure (5) Obesity hypoventilation syndrome Current visit: No Status: Chronic Patient need CPAP with oxygen during night at home. Will continue supportive with CPAP/BiPAP (6) Hypertension Current visit: No Status: Chronic BP is stable. Continue home medication Qualifiers: Hypertension type: essential hypertension Qualified Code(s): I10 - Essential (primary) hypertension (7) DVT prophylaxis Current visit: No Status: Acute EPCD. No anticoagulation because of recent GI bleed (8) Anemia Current visit: No Status: Acute Pt has iron deficiency anemia, probably due to recent GI bleed. Continue iron supplement Qualifiers: Anemia type: iron deficiency Iron deficiency anemia type: chronic blood loss Qualified Code(s): D50.0 - Iron deficiency anemia secondary to blood loss (chronic) (9) COPD (chronic obstructive pulmonary disease) Current visit: No Status: Chronic No signs of exacerbation. Continue home medications and supportive treatment Qualifiers: COPD type: emphysema Emphysema type: unspecified Qualified Code(s): J43.9 - Emphysema, unspecified (10) Atrial fibrillation Current visit: No Status: Acute History of PAF, now sinus, on beta kathy, no anticoagulation because of her recent GI bleed. On aspirin. Qualifiers: Atrial fibrillation type: paroxysmal Qualified Code(s): I48.0 - Paroxysmal atrial fibrillation (11) Hypoxia Current visit: Yes Status: Acute Patient developed one episode of hypoxia in SNF, possibly due to CPAP malfunction. We will keep patient in hospital with CPAP/BiPAP support during night. balcony worker consult for placement. Internal Medicine - H&P: HPI Chief complaint: Hypoxia Admitted From: Long-term Nursing Facility Plans for Post Hospital Care: Transfer Alf Facility History of present illness: Ms. Ponce is a 76 year old female with history of CHF, COPD, diabetes, hypertension, anemia, recent GI bleed, PAF, morbid obesity, obstructive sleep apnea on home oxygen and home CPAP, transferred to emergency room from [facility] for hypoxia. Patient has recently admitted as a CHF exacerbation and transferred to [facility]. Family said the patient was intubated in [facility]. Patient was discharged yesterday to [facility], however when patient was placed on CPAP in SNF, she developed shortness of breath and hypoxia, with oxygen saturation down to 50s per family. Family said SNF has no fit CPAP mask for her. Patient was transferred to ER and admitted for further evaluation. Past Med Surg Social Fam HX - Past Medical History Medical history: arthritis, asthma, cancer, CHF, COPD, diabetes, hyperlipidemia , hypertension, osteoporosis Psychiatric history: no psych history - Past Surgical History Surgical History: cancer surgery - Social History Smoking Status: Former smoker Smokeless Tobacco Status: No Alcohol use: none Drug use: none - Family History Mother Family Member Ethnicity: Non- Living Status: Hx Family Cardiac Disorders: Yes (CT) Hx Family Endocrine Disorder: Yes (DM) Father Family Member Ethnicity: Non- Living Status: Hx Family Cardiac Disorders: Yes (HTN) Hx Family Endocrine Disorder: Yes (DM) Brother Family Member Ethnicity: Non- Living Status: Hx Family Cardiac Disorders: Yes (CT) Sister Family Member Ethnicity: Non- Living Status: Still Living Hx Family Cardiac Disorders: Yes (Afib) Internal Medicine - H&P: Meds Gabapentin [Neurontin] 400 mg PO TID 04/13/15 [History] Aspirin 81 mg PO DAILY 30 Days 04/20/15 [Rx] Budesonide/Formoterol 160/4.5 [Symbicort] 2 puff IH BIDR #1 inhaler 04/20/15 [Rx ] Carvedilol [Coreg] 3.125 mg PO BIDWM 30 Days 04/20/15 [Rx] Atorvastatin Calcium [Lipitor] 20 mg PO DAILY 05/03/17 [History] Montelukast [Singulair] 10 mg PO DAILY 12/24/16 [History] Oxygen 2 - 3 l NS CONT 12/24/16 [History] Tramadol HCl [Ultram] 50 mg PO BID PRN 12/24/16 [History] Levothyroxine [Synthroid] 175 mcg PO 0630 02/16/17 [History] Nitroglycerin 0.4 mg SL Q5MIN PRN #0 tab.subl 02/25/17 [Rx] Alendronate Sodium [Fosamax] 70 mg PO QWEEK 03/14/17 [History] Amlodipine [Norvasc] 10 mg PO DAILY 03/14/17 [History] Diclofenac Sodium [Voltaren] 1 appl TP QID 03/14/17 [History] Furosemide [Lasix] 40 mg PO DAILY 03/14/17 [History] GlipiZIDE [Glipizide Xl] 10 mg PO DAILY 03/14/17 [History] Insulin DETEMIR [Levemir] 100 unit SQ DAILY 03/14/17 [History] Iron Polysaccharide Complex [Ferrex 150] 150 mg PO DAILY 03/14/17 [History] Nystatin Cream [Mycostatin Cream] 1 applic .ROUTE BID PRN 03/14/17 [History] PredniSONE [Deltasone] 20 mg PO DAILY 03/14/17 [History] Ranitidine HCl [Zantac] 150 mg PO DAILY 03/14/17 [History] Sitagliptin Phos/Metformin HCl [Janumet 50-1,000 mg Tablet] 1 each PO DAILY [History] Allergies sulfamethoxazole [From Bactrim] Allergy (Verified 02/16/17 19:58) Rash trimethoprim [From Bactrim] Allergy (Verified 02/16/17 19:58) Rash Sulfa (Sulfonamide Antibiotics) Adverse Reaction (Verified 02/16/17 19:58) Rash All Systems PM: A 10-system review of systems was performed and is negative for pertinent findings except as documented above in the HPI. - Constitutional Vitals: Temp Pulse Resp BP Pulse Ox 98.4 F 62 18 134/57 96 03/14/17 06:59 03/14/17 06:59 03/14/17 06:59 03/14/17 06:59 03/14/17 06:59 General appearance: Present: A&O X 3, morbidly obese, no acute distress, answers questions appropriately - Head Head exam: Present: atraumatic, normocephalic - Eye Eye exam: Present: PERRL, conjuntiva pink, sclera anicteric Pupils: Present: PERRL - Neck Neck exam general surgery: Present: supple, trachea midline. Absent: lymphadenopathy - Respiratory Respiratory exam: Present: CTAB. Absent: accessory muscle use, rales, rhonchi, wheezes - Cardiovascular Cardiovascular exam: Present: RRR, +S1, +S2. Absent: diastolic murmur, gallop, rubs, systolic murmur - GI/Abdominal GI/Abdominal exam: Present: normal bowel sounds, soft, no peritoneal signs. Absent: distended, tenderness - Extremities Exam Extremities exam: Present: pedal edema (Mild pedal edema bilaterally), warm, radial pulses palpable and symetrical. Absent: calf tenderness, cyanotic - Neurological Exam Neurological exam: Present: CN II-XII intact, oriented X3, no focal deficits. Absent: pronater drift, facial droop, speech deficit - Skin Skin exam: Present: dry, intact Internal Med - H&P Results - Labs CBC & Chem 7: 03/14/17 02:29 03/14/17 02:29
[2017-03-14] MEDS ORDERED: Nitroglycerin 0.4 MG TAB.SUBL SL PRN (08:39)
[2017-03-14] MEDS ORDERED: *HR* Dextrose 50 % in Water (Syg) 50 ML SYRINGE IVP PRN (08:44)
[2017-03-14] MEDS ORDERED: Dextrose Gel 15 GM PO PRN ×2 (08:44)
[2017-03-14] MEDS ORDERED: D5% in Water 1,000 ML IVC PRN (08:44)
[2017-03-14] MEDS: DICLOFENAC SODIUM TP SCH ×4 (09:22→22:53)
[2017-03-14] MEDS: Aspirin 81 MG TAB.CHEW PO SCH (09:38)
[2017-03-14] MEDS: predniSONE 20 MG TABLET PO SCH (09:38)
[2017-03-14] MEDS: amLODIPine 5 MG TABLET PO SCH (09:38)
[2017-03-14] MEDS: Furosemide 40 MG TABLET PO SCH (09:38)
[2017-03-14] MEDS: Iron Polysaccharide Complex 150 MG CAPSULE PO SCH (09:38)
[2017-03-14] MEDS: Insulin DETEMIR 100 UNIT/ML X5UNITS SQ SCH ×4 (09:38→22:53)
[2017-03-14] MEDS: Gabapentin 400 MG CAPSULE PO SCH ×3 (09:38→22:53)
[2017-03-14] MEDS: Famotidine 20 MG TABLET PO SCH (09:38)
[2017-03-14] MEDS: Insulin LISPRO 300 UNITS/3 ML VIAL SQ SCH ×3 (12:21→22:51)
[2017-03-14] MEDS: Budesonide/Formoterol 160/4.5 MDI IH SCH ×2 (12:24→19:55)
[2017-03-14] MEDS: Clotrimazole 1% CRM 15 GM TUBE TP SCH (22:52)
[2017-03-14] MEDS: Nystatin POWDER 30 GM BOTTLE TP SCH (22:53)
[2017-03-15 04:26] LABS: Immature Granulocytes % 0.5 % (0-4)
[2017-03-15 04:28] LABS: Basophils % 0.3 %; Eosinophils # 0.1 K/mcL (0.0-0.6); Eosinophils % 1.5 %; Hematocrit 28.9 % (35.3-44.9); Hemoglobin 8.2 g/dL (11.5-15.4); Lymphocytes # 0.9 K/mcL (0.6-4.6); Lymphocytes % 16.2 %; Mean Corpuscular HGB Conc 28.4 g/dL (31.6-35.5); Mean Corpuscular Hemoglobin 23.4 pg (28.0-33.3); Mean Corpuscular Volume 82.6 fL (83.0-100.0); Monocytes # 0.5 K/mcL (0.0-1.3); Monocytes % 8.4 %; Platelet Count 163 K/mcL (140-400); Red Cell Distribution Width 24.3 % (11.5-14.5); Segmented Neutrophils % 73.1 %
[2017-03-15 04:35] LABS: BUN/Creatinine Ratio 26 (6-26); Blood Urea Nitrogen 25 mg/dL (7-20); Chloride 87 mEq/L (98-109); Glucose 223 mg/dL (70-99); Osmolality,Calculated 301 (280-300); Potassium 3.8 mEq/L (3.5-4.5); Sodium 140 mEq/L (136-145); eGFR For African Americans > 60 (> 60); eGFR For Non-African Americans 56 (> 60)
[2017-03-15 04:36] LABS: Neutrophils # 4.2 K/mcL (1.6-8.9)
[2017-03-15 04:46] LABS: Carbon Dioxide 48 mEq/L (19-29)
[2017-03-15 04:52] LABS: Anisocytosis 2+ (Not Present); Hypochromasia Present (Not Present); Microcytosis Present (Not Present); Platelet Estimate Normal (Normal)
[2017-03-15] MEDS: Budesonide/Formoterol 160/4.5 MDI IH SCH ×2 (08:01→20:09)
[2017-03-15] MEDS: Insulin LISPRO 300 UNITS/3 ML VIAL SQ SCH ×4 (08:59→21:31)
[2017-03-15] MEDS: Iron Polysaccharide Complex 150 MG CAPSULE PO SCH (09:00)
[2017-03-15] MEDS: amLODIPine 5 MG TABLET PO SCH (09:00)
[2017-03-15] MEDS: predniSONE 20 MG TABLET PO SCH (09:00)
[2017-03-15] MEDS: Famotidine 20 MG TABLET PO SCH (09:00)
[2017-03-15] MEDS: Gabapentin 400 MG CAPSULE PO SCH ×3 (09:00→21:29)
[2017-03-15] MEDS: Aspirin 81 MG TAB.CHEW PO SCH (09:00)
[2017-03-15] MEDS: Furosemide 40 MG TABLET PO SCH ×2 (09:00→18:12)
[2017-03-15] MEDS: Clotrimazole 1% CRM 15 GM TUBE TP SCH ×2 (09:01→21:30)
[2017-03-15] MEDS: Nystatin POWDER 30 GM BOTTLE TP SCH ×2 (09:02→21:29)
[2017-03-15] MEDS: DICLOFENAC SODIUM TP SCH ×4 (09:02→23:27)
[2017-03-15] MEDS: Insulin DETEMIR 100 UNIT/ML X5UNITS SQ SCH ×2 (09:04→21:30)
[2017-03-15] MEDS: traMADol 50 MG TABLET PO PRN ×2 (09:09→21:29)
--- NOTE | 2017-03-15 12:53 | Internal Med Progress Note ---
Date of Encounter: 03/15/17 Time of Encounter: 12:52 - Assessment and plan (1) Chronic respiratory failure with hypercapnia Current Visit: Yes Status: Acute Assessment and plan: Respiratory status at baseline Saturating well on nasal cannula states her CPAP was malfunctioning at the SNF facility which prompted her visit to the hospital will continue O2 supplementation bipap support as needed and at bedtime continue home medications (diuretics, steroids, bronchodilators) awaiting social psychologist evaluation for placement and discharge (2) Anemia Current Visit: No Status: Acute Assessment and plan: H&H low but acceptable continue to monitor no acute bleeding reported at this time will transfuse as needed Qualifiers: Anemia type: iron deficiency Iron deficiency anemia type: chronic blood loss Qualified Code(s): D50.0 - Iron deficiency anemia secondary to blood loss (chronic) (3) COPD (chronic obstructive pulmonary disease) Current Visit: No Status: Chronic Assessment and plan: not in acute exacerbation continue bronchodilator support Qualifiers: COPD type: emphysema Emphysema type: unspecified Qualified Code(s): J43.9 - Emphysema, unspecified (4) Diabetes mellitus Current Visit: No Status: Chronic Assessment and plan: continue sliding scale insulin algorithm monitor FS and BG Qualifiers: Diabetes mellitus type: type 2 Diabetes mellitus complication status: without complication Diabetes mellitus local company intermodal truck driver insulin use: with local company intermodal truck driver use Qualified Code(s): E11.9 - Type 2 diabetes mellitus without complications ; Z79.4 - buttermaker (current) use of insulin (5) DVT prophylaxis Current Visit: No Status: Acute Assessment and plan: SCD (6) Hypertension Current Visit: No Status: Chronic Qualifiers: Hypertension type: essential hypertension Qualified Code(s): I10 - Essential (primary) hypertension (7) Hypothyroid Current Visit: No Status: Chronic Assessment and plan: continue levothyroxine Qualifiers: Hypothyroidism type: acquired Qualified Code(s): E03.9 - Hypothyroidism, unspecified (8) Hypoxia Current Visit: Yes Status: Acute Assessment and plan: resolved secondary to malfunctioning CPAP machine at the [facility] (9) Obesity hypoventilation syndrome Current Visit: No Status: Chronic (10) Morbid obesity with BMI of 60.0-69.9, adult Current Visit: Yes Status: Chronic (11) Atrial fibrillation Current Visit: No Status: Acute Assessment and plan: history of PAF currently in sinus rhythm continue BB not on anticoagulation due to history GI bleed continue ASA Qualifiers: Atrial fibrillation type: paroxysmal Qualified Code(s): I48.0 - Paroxysmal atrial fibrillation - Subjective Interval history: Pt seen and examined with family present at bedside. Pt sitting in bed and eating lunch. Resting comfortably and denies any SOB at this time. Family and patient do not want to go back to the rehab facility she arrived from, therefore discharge pending social psychologist evaluation and placement. No overnight issues reported - Constitutional Vitals: Temp Pulse Resp BP Pulse Ox 98.1 F 60 16 152/70 97 03/15/17 11:42 03/15/17 11:42 03/15/17 11:42 03/15/17 11:42 03/15/17 11:42 General appearance: Present: A&O X 3, morbidly obese, no acute distress, answers questions appropriately - Head Head exam: Present: atraumatic, normocephalic - Eye Eye exam: Present: conjuntiva pink, sclera anicteric - Respiratory Respiratory exam: Present: decreased breath sounds. Absent: respiratory distress, wheezes - Cardiovascular Cardiovascular exam: Present: RRR, +S1, +S2. Absent: diastolic murmur, gallop, rubs, systolic murmur - GI/Abdominal GI/Abdominal exam: Present: normal bowel sounds, soft, no peritoneal signs. Absent: distended, tenderness - Extremities Exam Extremities exam: Present: pedal edema (chronic venous stasis ), warm, radial pulses palpable and symetrical. Absent: calf tenderness Internal Medicine: Result - Labs CBC & Chem 7: 03/15/17 03:40 03/15/17 03:40 Labs: Short CBC 03/15/17 Range/Units 03:40 WBC 5.8 (4.3-11.1) K/mcL Hgb 8.2 L (11.5-15.4) g/dL Hct 28.9 L (35.3-44.9) % Plt Count 163 (140-400) K/mcL Neutrophils # 4.2 (1.6-8.9) K/mcL BMP 03/15/17 03:40 Sodium 140 Potassium 3.8 Chloride 87 L Carbon Dioxide 48 H* BUN 25 H Creatinine 0.96 Glucose 223 H Calcium 8.0 L - VTE Documentation of Mechanical Device: Intermittent pneumatic compression device Consult Discharge Plan - Plan Referrals: Aidan Hendrickson MD [Primary Care Provider] -
[2017-03-16 04:00] LABS: Hemoglobin 8.4 g/dL (11.5-15.4)
[2017-03-16 04:02] LABS: Basophils % 0.3 %; Eosinophils # 0.1 K/mcL (0.0-0.6); Eosinophils % 1.2 %; Immature Granulocytes % 0.7 % (0-4); Lymphocytes # 1.1 K/mcL (0.6-4.6); Lymphocytes % 14.3 %; Mean Corpuscular Hemoglobin 24.1 pg (28.0-33.3); Mean Corpuscular Volume 83.1 fL (83.0-100.0); Mean Platelet Volume 10.3 fL (9.4-12.4); Monocytes # 0.6 K/mcL (0.0-1.3); Monocytes % 7.4 %; Neutrophils # 5.8 K/mcL (1.6-8.9); Platelet Count 161 K/mcL (140-400); Red Blood Count 3.49 M/mcL (3.82-4.97); Red Cell Distribution Width 24.8 % (11.5-14.5); Segmented Neutrophils % 76.1 %
[2017-03-16 04:16] LABS: Calcium 7.8 mg/dL (8.6-10.8); Magnesium 1.5 mg/dL (1.6-2.6); Potassium 3.9 mEq/L (3.5-4.5)
[2017-03-16 04:46] LABS: Anisocytosis 2+ (Not Present); Hypochromasia Present (Not Present); Platelet Estimate Normal (Normal); Poikilocytosis 2+ (Not Present)
[2017-03-16] MEDS: Budesonide/Formoterol 160/4.5 MDI IH SCH ×2 (08:11→22:47)
[2017-03-16] MEDS: Iron Polysaccharide Complex 150 MG CAPSULE PO SCH (08:14)
[2017-03-16] MEDS: Aspirin 81 MG TAB.CHEW PO SCH (08:14)
[2017-03-16] MEDS: predniSONE 20 MG TABLET PO SCH (08:15)
[2017-03-16] MEDS: amLODIPine 5 MG TABLET PO SCH (08:15)
[2017-03-16] MEDS: Gabapentin 400 MG CAPSULE PO SCH ×3 (08:15→21:46)
[2017-03-16] MEDS: Famotidine 20 MG TABLET PO SCH (08:16)
[2017-03-16] MEDS: Clotrimazole 1% CRM 15 GM TUBE TP SCH ×2 (08:16→21:58)
[2017-03-16] MEDS: Nystatin POWDER 30 GM BOTTLE TP SCH (08:16)
[2017-03-16] MEDS: Furosemide 40 MG TABLET PO SCH ×2 (08:16→16:30)
[2017-03-16] MEDS: DICLOFENAC SODIUM TP SCH ×3 (08:16→16:34)
[2017-03-16] MEDS: Insulin LISPRO 300 UNITS/3 ML VIAL SQ SCH ×6 (08:18→21:45)
[2017-03-16] MEDS ORDERED: Magnesium Sulfate 1 GM in D5% in Water 100 ML IVPB ONE (08:21)
[2017-03-16] MEDS: traMADol 50 MG TABLET PO PRN ×2 (08:30→17:14)
[2017-03-16] MEDS: Insulin DETEMIR 100 UNIT/ML X5UNITS SQ SCH ×2 (10:44→21:46)
[2017-03-16] MEDS ORDERED: Furosemide 40 MG/4 ML VIAL IVP ONE (12:06)
--- NOTE | 2017-03-16 12:07 | Internal Med Progress Note ---
Date of Encounter: 03/16/17 Time of Encounter: 12:06 - Assessment and plan (1) Chronic respiratory failure with hypercapnia Current Visit: Yes Status: Acute Assessment and plan: Respiratory status at baseline Saturating well on nasal cannula states her CPAP was malfunctioning at the SNF facility which prompted her visit to the hospital will continue O2 supplementation bipap support as needed and at bedtime continue home medications (diuretics, steroids, bronchodilators) social media marketing manager consultation appreciated, awaiting bipap study overnight and ECF placement for discharge (2) Anemia Current Visit: No Status: Acute Assessment and plan: H&H low but acceptable continue to monitor no acute bleeding reported at this time will transfuse as needed Qualifiers: Anemia type: iron deficiency Iron deficiency anemia type: chronic blood loss Qualified Code(s): D50.0 - Iron deficiency anemia secondary to blood loss (chronic) (3) COPD (chronic obstructive pulmonary disease) Current Visit: No Status: Chronic Assessment and plan: not in acute exacerbation continue bronchodilator support Qualifiers: COPD type: emphysema Emphysema type: unspecified Qualified Code(s): J43.9 - Emphysema, unspecified (4) Diabetes mellitus Current Visit: No Status: Chronic Assessment and plan: Noted to be hyperglycemic Increased Levemir dosing as per insulin requirements and added Premeal insulin coverage continue sliding scale insulin algorithm monitor FS and BG Qualifiers: Diabetes mellitus type: type 2 Diabetes mellitus complication status: without complication Diabetes mellitus terminal carman insulin use: with terminal carman use Qualified Code(s): E11.9 - Type 2 diabetes mellitus without complications ; Z79.4 - terminal supervisor (current) use of insulin (5) DVT prophylaxis Current Visit: No Status: Acute Assessment and plan: SCD (6) Hypertension Current Visit: No Status: Chronic Assessment and plan: BP within acceptable range continue home meds Qualifiers: Hypertension type: essential hypertension Qualified Code(s): I10 - Essential (primary) hypertension (7) Hypothyroid Current Visit: No Status: Chronic Assessment and plan: continue levothyroxine Qualifiers: Hypothyroidism type: acquired Qualified Code(s): E03.9 - Hypothyroidism, unspecified (8) Hypoxia Current Visit: Yes Status: Resolved Assessment and plan: resolved secondary to malfunctioning CPAP machine at the [facility] (9) Obesity hypoventilation syndrome Current Visit: No Status: Chronic (10) Morbid obesity with BMI of 60.0-69.9, adult Current Visit: Yes Status: Chronic (11) Atrial fibrillation Current Visit: No Status: Acute Assessment and plan: history of PAF currently in sinus rhythm continue BB not on anticoagulation due to history GI bleed continue ASA Qualifiers: Atrial fibrillation type: paroxysmal Qualified Code(s): I48.0 - Paroxysmal atrial fibrillation (12) Diastolic CHF Current Visit: No Status: Acute Assessment and plan: Not in acute exacerbation however given physical exam findings of worsening bibasilar crackles, will give an additional one time dose of lasix 40mg IV continue home dose of lasix fluid restriction diet monitor I/Os, daily weights Qualifiers: Congestive heart failure chronicity: chronic Qualified Code(s): I50.32 - Chronic diastolic (congestive) heart failure - Subjective Interval history: Pt seen and examined with family present at bedside. Pt sitting in chair and reports of feeling well at this time. Denies any discomfort. Noted to have bibasilar crackles on auscultation. Also noted to persistently hyperglycemic. As per ECF requirement, patient will need to undergo bipap qualification prior to discharge. Bipap qualification overnight d/c pending ECF placement - Constitutional Vitals: Temp Pulse Resp BP Pulse Ox 98.2 F 57 18 148/69 98 03/16/17 06:56 03/16/17 06:56 03/16/17 08:13 03/16/17 06:56 03/16/17 08:13 General appearance: Present: A&O X 3, morbidly obese, no acute distress, answers questions appropriately - Head Head exam: Present: atraumatic, normocephalic - Eye Eye exam: Present: conjuntiva pink, sclera anicteric - Respiratory Respiratory exam: Absent: respiratory distress, wheezes (bibasilar crackles) - Cardiovascular Cardiovascular exam: Present: RRR, +S1, +S2. Absent: diastolic murmur, gallop, rubs, systolic murmur - GI/Abdominal GI/Abdominal exam: Present: distended (obese), normal bowel sounds, soft, no peritoneal signs. Absent: tenderness - Extremities Exam Extremities exam: Present: pedal edema, warm, radial pulses palpable and symetrical. Absent: calf tenderness - Neurological Exam Neurological exam: Present: alert, oriented X3 - Psychiatric Psychiatric exam: Present: normal affect, normal mood Internal Medicine: Result - Labs CBC & Chem 7: 03/16/17 03:17 03/16/17 03:17 Labs: Short CBC 03/16/17 Range/Units 03:17 WBC 7.6 (4.3-11.1) K/mcL Hgb 8.4 L (11.5-15.4) g/dL Hct 29.0 L (35.3-44.9) % Plt Count 161 (140-400) K/mcL Neutrophils # 5.8 (1.6-8.9) K/mcL BMP 03/16/17 03:17 Sodium 138 Potassium 3.9 Chloride 88 L Carbon Dioxide 42 H* BUN 30 H Creatinine 1.10 Glucose 247 H Calcium 7.8 L - VTE Documentation of Mechanical Device: Intermittent pneumatic compression device Consult Discharge Plan - Plan Referrals: Aidan Hendrickson MD [Primary Care Provider] -
[2017-03-16] MEDS ORDERED: Insulin DETEMIR 100 UNIT/ML X5UNITS SQ ONE (12:35)
--- NOTE | 2017-03-16 13:07 | Electrocardiograph Report ---
[place] [id number] Test Date: 2017-03-14 Pat Name: Beatriz Ponce Department: 103 Room: [id number] Gender: F Campaign Associate: : [id number] Requested By: Moo Alvarado Order Number: [id number] Reading MD: Naveen Pérez MD Measurements Intervals [place] Rate: 66 P: 84 MT: 189 QRS: -20 QRSD: 98 T: 57 QT: 404 QTc: 417 Interpretive Statements SINUS RHYTHM WITH OCCASIONAL SUPRAVENTRICULAR PREMATURE COMPLEXES Electronically Signed On 03-16-2017 13:05:36 EDT by Naveen Pérez MD
[2017-03-17 05:38] LABS: ABG Base Excess 23.6 mEq/L (-2.0 to 3.0); ABG HCO3 51.2 mEQ/L (21-27); ABG Oxygen Saturation 94 % (95-98); ABG PH 7.42 pH Units (7.32-7.45); ABG PO2 70 mmHg (85-104); ABG TCO2 53.6 mEq/L (20-26)
[2017-03-17 05:40] LABS: ABG PCO2 79 mmHg (35-45); Blood Gas FiO2 28 %; Blood Gas Liter Flow 2 L/MIN
[2017-03-17] MEDS: DICLOFENAC SODIUM TP SCH ×3 (05:56→14:06)
[2017-03-17] MEDS: Nystatin POWDER 30 GM BOTTLE TP SCH ×2 (05:56→08:22)
[2017-03-17 06:51] LABS: Basophils % 0.3 %; Eosinophils # 0.1 K/mcL (0.0-0.6); Eosinophils % 1.2 %; Hematocrit 28.5 % (35.3-44.9); Hemoglobin 8.3 g/dL (11.5-15.4); Immature Granulocytes % 0.6 % (0-4); Lymphocytes # 1.2 K/mcL (0.6-4.6); Lymphocytes % 13.9 %; Mean Corpuscular HGB Conc 29.1 g/dL (31.6-35.5); Mean Corpuscular Hemoglobin 24.1 pg (28.0-33.3); Mean Corpuscular Volume 82.6 fL (83.0-100.0); Mean Platelet Volume 10.2 fL (9.4-12.4); Monocytes # 0.6 K/mcL (0.0-1.3); Monocytes % 7.2 %; Neutrophils # 6.8 K/mcL (1.6-8.9); Platelet Count 150 K/mcL (140-400); Red Blood Count 3.45 M/mcL (3.82-4.97); Red Cell Distribution Width 24.7 % (11.5-14.5); Segmented Neutrophils % 76.8 %
[2017-03-17 07:10] LABS: BUN/Creatinine Ratio 39 (6-26); Calcium 7.6 mg/dL (8.6-10.8); Chloride 88 mEq/L (98-109); Glucose 185 mg/dL (70-99); Magnesium 1.5 mg/dL (1.6-2.6); Osmolality,Calculated 301 (280-300); Phosphorous 4.6 mg/dL (2.3-4.7); Potassium 3.6 mEq/L (3.5-4.5); Sodium 138 mEq/L (136-145); eGFR For African Americans > 60 (> 60); eGFR For Non-African Americans 51 (> 60)
[2017-03-17 07:25] LABS: Blood Urea Nitrogen 41 mg/dL (7-20); Carbon Dioxide 42 mEq/L (19-29)
[2017-03-17] MEDS ORDERED: Magnesium Sulfate 2 GM in D5% in Water 100 ML IVPB ONE (07:45)
[2017-03-17 08:16] LABS: Anisocytosis 1+ (Not Present); Platelet Estimate Normal (Normal)
[2017-03-17] MEDS: Iron Polysaccharide Complex 150 MG CAPSULE PO SCH (08:19)
[2017-03-17] MEDS: Budesonide/Formoterol 160/4.5 MDI IH SCH (08:19)
[2017-03-17] MEDS: predniSONE 20 MG TABLET PO SCH (08:20)
[2017-03-17] MEDS: Aspirin 81 MG TAB.CHEW PO SCH (08:20)
[2017-03-17] MEDS: amLODIPine 5 MG TABLET PO SCH (08:20)
[2017-03-17] MEDS: Famotidine 20 MG TABLET PO SCH (08:20)
[2017-03-17] MEDS: Furosemide 40 MG TABLET PO SCH (08:20)
[2017-03-17] MEDS: Insulin LISPRO 300 UNITS/3 ML VIAL SQ SCH ×6 (08:21→16:19)
[2017-03-17] MEDS: Gabapentin 400 MG CAPSULE PO SCH ×2 (08:21→14:04)
[2017-03-17] MEDS: Insulin DETEMIR 100 UNIT/ML X5UNITS SQ SCH (08:21)
[2017-03-17] MEDS: Clotrimazole 1% CRM 15 GM TUBE TP SCH (08:22)
[2017-03-17] MEDS: traMADol 50 MG TABLET PO PRN (10:10)
--- NOTE | 2017-03-17 11:28 | Discharge Summary ---
Date of Encounter: 03/17/17 Time of Encounter: 11:27 - Discharge Diagnosis (1) Chronic respiratory failure with hypercapnia Priority: Primary Status: Resolved (2) Anemia Priority: Secondary Status: Chronic Qualifiers: Anemia type: iron deficiency Iron deficiency anemia type: chronic blood loss Qualified Code(s): D50.0 - Iron deficiency anemia secondary to blood loss (chronic) (3) COPD (chronic obstructive pulmonary disease) Priority: Secondary Status: Chronic Qualifiers: COPD type: emphysema Emphysema type: unspecified Qualified Code(s): J43.9 - Emphysema, unspecified (4) Diabetes mellitus Priority: Secondary Status: Chronic Qualifiers: Diabetes mellitus type: type 2 Diabetes mellitus complication status: without complication 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 mellitus 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: with 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 use Qualified Code(s): E11.9 - Type 2 diabetes mellitus without complications ; Z79.4 - skilled nursing (current) use of insulin (5) DVT prophylaxis Priority: Secondary Status: Acute (6) Hypertension Priority: Secondary Status: Chronic Qualifiers: Hypertension type: essential hypertension Qualified Code(s): I10 - Essential (primary) hypertension (7) Hypothyroid Priority: Secondary Status: Chronic Qualifiers: Hypothyroidism type: acquired Qualified Code(s): E03.9 - Hypothyroidism, unspecified (8) Hypoxia Priority: Secondary Status: Resolved (9) Obesity hypoventilation syndrome Priority: Secondary Status: Chronic (10) Morbid obesity with BMI of 60.0-69.9, adult Priority: Secondary Status: Chronic (11) Atrial fibrillation Priority: Secondary Status: Chronic Qualifiers: Atrial fibrillation type: paroxysmal Qualified Code(s): I48.0 - Paroxysmal atrial fibrillation (12) Diastolic CHF Priority: Secondary Status: Chronic Qualifiers: Congestive heart failure chronicity: chronic Qualified Code(s): I50.32 - Chronic diastolic (congestive) heart failure - Discharge Medications Home Medications: Gabapentin [Neurontin] 400 mg PO TID 04/13/15 [History] Aspirin 81 mg PO DAILY 30 Days 04/20/15 [Rx] Budesonide/Formoterol 160/4.5 [Symbicort] 2 puff IH BIDR #1 inhaler 04/20/15 [Rx ] Atorvastatin Calcium [Lipitor] 20 mg PO DAILY 12/24/16 [History] Montelukast [Singulair] 10 mg PO DAILY 12/24/16 [History] Oxygen 2 - 3 l NS CONT 12/24/16 [History] Tramadol HCl [Ultram] 50 mg PO Q8HR PRN 12/24/16 [History] Levothyroxine [Synthroid] 175 mcg PO DAILY 02/16/17 [History] Alendronate Sodium [Fosamax] 70 mg PO QWEEK 03/14/17 [History] Amlodipine [Norvasc] 10 mg PO DAILY 03/14/17 [History] Carvedilol [Coreg] 6.25 mg PO BID 03/14/17 [History] Diclofenac Sodium [Voltaren] 1 appl TP QID 03/14/17 [History] Furosemide [Lasix] 40 mg PO BID 03/14/17 [History] GlipiZIDE [Glipizide Xl] 20 mg PO DAILY 03/14/17 [History] Insulin ASPART [NovoLOG] 6 - 10 unit SQ TIDWM 03/14/17 [History] Insulin Glargine,Hum.rec.anlog [Lantus Solostar] 40 unit SQ BID 03/14/17 [ History] Iron Polysaccharide Complex [Ferrex 150] 150 mg PO DAILY 03/14/17 [History] Losartan [Cozaar] 25 mg PO DAILY 03/14/17 [History] Nitroglycerin [Nitrostat] 0.4 mg SL AD PRN 03/14/17 [History] Nystatin Cream [Mycostatin Cream] 1 appl TP BID 03/14/17 [History] Ranitidine HCl [Zantac] 150 mg PO BID 03/14/17 [History] Sitagliptin Phos/Metformin HCl [Janumet 50-1,000 mg Tablet] 1 tab PO DAILY 03/14 [History] Allergies/Adverse Reactions: Allergies Sulfa (Sulfonamide Antibiotics) Allergy (Verified 03/14/17 15:31) Rash sulfamethoxazole [From Bactrim] Allergy (Verified 02/16/17 19:58) Rash trimethoprim [From Bactrim] Allergy (Verified 02/16/17 19:58) Rash Date of admission: 03/14/17 05:46 Primary care physician: Aidan Hendrickson MD Consults: 03/14/17 08:05 Consult to Weigh Box Tender [CONS] Routine Reason for Consult: Discharge planning. Patient requesting to switch rehabs from [facility] to [place]. 03/14/17 10:16 Consult to Physical Therapy [CONS] Routine Comment: Evaluate, develop and implement POC Reason for Consult: discharge planning, patient is already at [facility] for rehab OT [Consult to Occupational Therapy] [CONS] Routine Comment: Evaluate, develop and implement POC Reason for Consult: discharge planning, pt is already at [facility] for rehab Discharging clinician: Freda Blevins Anticipated date of discharge: 03/17/17 - Patient Status Disposition: Transfer SNF Condition: Good Functional capacity at discharge: uses cane/walker Overall status at discharge: patient is back to baseline - Discharge Instructions Follow Up With: Aidan Hendrickson MD [Primary Care Provider] - Additional Instructions: Please follow up with your administrative and program specialist and primary care physician within one week after your discharge from the hospital. Please continue bipap support at bedtime. Please resume all your home medications as prescribed by your primary care physician. - Diet and Activity Activity: as per physical therapy, wear oxygen at all times (bipap at bedtime) Diet: diabetic diet, low salt diet Hospital course: Ms. Ponce is a 76 year old female with PMH of CHF, COPD on LTOT, DM, HTN, anemia, atrial fibrillation who was admitted from SNF for hypoxia. Pt did not have a functioning bipap machine at the SNF and was found to be hypoxic which led to her admission to the ER. She was evaluated by social science professor and underwent bipap qualification testing. Her discharge was delayed due to placement to ECF. Pt is hemodynamically stable and will be discharged to ECF once she has better BP control. She was also noted to have slight CAYLA upon arrival due to which her Losartan was placed on hold. Her renal function is back to baseline and her losartan is to be resume prior to her discharge. Pt and family demonstrate understanding of her diagnosis and agree with the discharge care and plan. - Time Spent with Patient Total time spent providing and/or coordinating discharge services: Less than 30 minutes - Constitutional Vitals: Temp Pulse Resp BP Pulse Ox 98.5 F 54 18 153/65 98 03/17/17 07:06 03/17/17 07:06 03/17/17 08:20 03/17/17 07:06 03/17/17 08:20 General appearance: Present: A&O X 3, morbidly obese, no acute distress, answers questions appropriately - Head Head exam: Present: atraumatic, normocephalic - Eye Eye exam: Present: conjuntiva pink, sclera anicteric - Respiratory Respiratory exam: Present: CTAB. Absent: accessory muscle use, rales, rhonchi, wheezes - Cardiovascular Cardiovascular exam: Present: RRR, +S1, +S2. Absent: diastolic murmur, gallop, rubs, systolic murmur - GI/Abdominal GI/Abdominal exam: Present: distended (obese), normal bowel sounds, soft, no peritoneal signs. Absent: tenderness - Extremities Exam Extremities exam: Present: pedal edema, warm, radial pulses palpable and symetrical. Absent: calf tenderness - VTE Documentation of Mechanical Device: Intermittent pneumatic compression device
--- NOTE | 2017-03-17 14:02 | Physician Discharge Referral ---
ExtendedCare Referral Info Transfer To: F Provider in Charge after Transfer: PCP - Diagnosis (1) Chronic respiratory failure with hypercapnia Priority: Primary Status: Resolved (2) Anemia Priority: Secondary Status: Chronic (3) COPD (chronic obstructive pulmonary disease) Priority: Secondary Status: Chronic (4) Diabetes mellitus Priority: Secondary Status: Chronic (5) DVT prophylaxis Priority: Secondary Status: Acute (6) Hypertension Priority: Secondary Status: Chronic (7) Hypothyroid Priority: Secondary Status: Chronic (8) Hypoxia Priority: Primary Status: Resolved (9) Obesity hypoventilation syndrome Priority: Secondary Status: Chronic (10) Morbid obesity with BMI of 60.0-69.9, adult Priority: Secondary Status: Chronic (11) Atrial fibrillation Status: Chronic (12) Diastolic CHF Status: Chronic - Transfer Medications Home Medications: Gabapentin [Neurontin] 400 mg PO TID 04/13/15 [History] Aspirin 81 mg PO DAILY 30 Days 04/20/15 [Rx] Budesonide/Formoterol 160/4.5 [Symbicort] 2 puff IH BIDR #1 inhaler 04/20/15 [Rx ] Atorvastatin Calcium [Lipitor] 20 mg PO DAILY 12/24/16 [History] Montelukast [Singulair] 10 mg PO DAILY 12/24/16 [History] Oxygen 2 - 3 l NS CONT 12/24/16 [History] Tramadol HCl [Ultram] 50 mg PO Q8HR PRN 12/24/16 [History] Levothyroxine [Synthroid] 175 mcg PO DAILY 02/16/17 [History] Alendronate Sodium [Fosamax] 70 mg PO QWEEK 03/14/17 [History] Amlodipine [Norvasc] 10 mg PO DAILY 03/14/17 [History] Carvedilol [Coreg] 6.25 mg PO BID 03/14/17 [History] Diclofenac Sodium [Voltaren] 1 appl TP QID 03/14/17 [History] Furosemide [Lasix] 40 mg PO BID 03/14/17 [History] GlipiZIDE [Glipizide Xl] 20 mg PO DAILY 03/14/17 [History] Insulin ASPART [NovoLOG] 6 - 10 unit SQ TIDWM 03/14/17 [History] Insulin Glargine,Hum.rec.anlog [Lantus Solostar] 40 unit SQ BID 03/14/17 [ History] Iron Polysaccharide Complex [Ferrex 150] 150 mg PO DAILY 03/14/17 [History] Losartan [Cozaar] 25 mg PO DAILY 03/14/17 [History] Nitroglycerin [Nitrostat] 0.4 mg SL AD PRN 03/14/17 [History] Nystatin Cream [Mycostatin Cream] 1 appl TP BID 03/14/17 [History] Ranitidine HCl [Zantac] 150 mg PO BID 03/14/17 [History] Sitagliptin Phos/Metformin HCl [Janumet 50-1,000 mg Tablet] 1 tab PO DAILY 03/14 [History] Allergies/Adverse Reactions: Allergies Sulfa (Sulfonamide Antibiotics) Allergy (Verified 03/14/17 15:31) Rash sulfamethoxazole [From Bactrim] Allergy (Verified 02/16/17 19:58) Rash trimethoprim [From Bactrim] Allergy (Verified 02/16/17 19:58) Rash - Respiratory Orders Smoking Cessation: Smoking cessation has been advised. For more information, call the [place] Tobacco Quit Line at 3-970-HDOT-NOW. - Treatments List/Other: Please follow up with your technical sales support specialist and primary care physician within one week after your discharge from the hospital. Please continue bipap support at bedtime. Please resume all your home medications as prescribed by your primary care physician. CERTIFICATION: I certify that the transfer of the above named patient to an Extended Care Facility is necessary for the continuing treatment of the diagnosis listed. The above information is true and accurate reflection of patient's current condition. Confidential - Redisclosure prohibited without a patient's written consent.
[2017-03-17 15:58] VITALS: BP 144/57
[2017-03-21] MEDS ORDERED: Patient Taking Own Medication 1 EACH PO SCH (06:30)
== END 2017-03-17 16:30 ==
LOC: 2NNU 01:54 → EMEROO 01:54 → SUATTDRO 05:46 → 2NNU 06:42 → 2NENU 18:10
PROVIDERS: ADMIT Internal Medicine; ATTEND Internal Medicine